=== PATIENT | female | born 1945 | race Caucasian/White ===

== ENCOUNTER 2020-03-02 19:05 | Inpatient (IN) | payer MEDICARE, OTHER ==
--- NOTE | 2020-03-02 20:19 | PDOC.HHP ---
Hospitalist HPI - History of Present Illness Altered mental status History of Present Illness: 75-year-old woman with a history of hypertension and an endocrine disease brought to the emergency department due to progressive altered mental status over 3 days. According to son patient was more confused today and therefore sent her to [place] emergency department. Patient found to be febrile with a temperature of 101, UA suggesting the presence of UTI. Patient meets criteria for sepsis. Chest x-ray done in the ED shows report of possible left lower lobe infiltrate versus atelectasis. Patient was given a shot of IV Zithromax vancomycin and cefepime and given IV normal saline bolus. She was subsequently transferred here for admission. Patient was oriented to person and place when I saw him in the ED. She denied any diarrhea, or any nausea or vomiting. She is admitted for further management. Hospitalist ROS - Review of Systems ROS unobtainable: due to mental status - Medication Medications: Medication Instructions Recorded Confirmed Type Unobtainable 03/03/20 03/03/20 History Hospitalist History - Past Medical History Other Medical History: Endocrine disease. Suspect thyroid disorder. Hypertension. - Past Surgical History Other Surgical History: Skin cancer removal from scalp, hysterectomy. - Family History Other Family History: Unable to obtain due to altered mental status. - Social History Smoking Status: Never smoker Alcohol: reports: None Drugs: reports: none - Exam General Appearance: NAD General - other findings: Confused. Eye: PERRL, anicteric sclera ENT: normocephalic atraumatic, no oropharyngeal lesions, moist mucosa Neck: supple, symmetric, no JVD, no thyromegaly Heart: RRR (Tachycardic.), no murmur, no gallops Respiratory: CTAB, no wheezes, no rales, no ronchi Gastrointestinal: soft, non-tender, non-distended, normal bowel sounds, no hepatomegaly, no splenomegaly Extremities: no cyanosis, no edema Skin: normal turgor, no rashes Neurological: cranial nerve grossly intact, no weakness, no focal deficits Musculoskeletal: normal tone, normal strength Psychiatric: oriented to person, oriented to place Psychiatric - other findings: Confused. Hospitalist Results - Labs Result Diagrams: 03/03/20 06:17 03/03/20 06:17 Lab results: Hemoglobin is 11.9 WBC 5.2 platelet count 237. Sodium 143, potassium 3.4, BUN 31, creatinine 0.87, troponin 0 0.12, TSH 0.0722. - Radiology Interpretation Chest x-ray Status: report reviewed by me (Right lower lobe atelectasis and or infiltrate.) Hospitalist H&P A/P - Problem (1) Sepsis Code(s): A41.9 - SEPSIS, UNSPECIFIED ORGANISM Status: Acute (2) UTI (urinary tract infection) Status: Acute (3) Pneumonia Code(s): J18.9 - PNEUMONIA, UNSPECIFIED ORGANISM Status: Acute (4) Metabolic encephalopathy Code(s): G93.41 - METABOLIC ENCEPHALOPATHY Status: Acute (5) Hyperthyroidism Code(s): E05.90 - THYROTOXICOSIS, UNSP WITHOUT THYROTOXIC CRISIS OR STORM Status: Acute - Plan Plan: Admitted to the medical floor with telemetry. Continue sepsis protocol. Check lactic acid. IV hydration with normal saline Broad-spectrum antibiotics-IV Rocephin and vancomycin Obtain blood cultures and urine culture. Hold thyroid replacement therapy given the low TSH. Diet as tolerated. I am unable to discuss advanced care planning due to her altered mental status and no family member by her bedside.
[2020-03-02 20:24] LABS: SARS-CoV-2 NAA Rapid Test DETECTED (NotDetected)
[2020-03-02] MEDS ORDERED: cefTRIAXone\\ROCEPHIN 2 GM in Sodium Chloride 0.9% 100 ML IVPB SCH (22:00)
[2020-03-02] MEDS: Famotidine/PF 20 mg/2ml Vial SLOW IVP SCH (23:00)
[2020-03-02] MEDS: Sodium Chloride 0.9% 1,000 ML IV SCH (23:00)
[2020-03-03] MEDS: Sodium Chloride 0.9% 1,000 ML IV SCH (04:43)
[2020-03-03] MEDS: Acetaminophen 325 MG TAB PO PRN ×2 (05:33→21:58)
[2020-03-03 06:31] LABS: #Lymphocytes 0.7 thou/uL (1.20-3.40); #Monocytes 0.4 thou/uL (0.11-0.59); #Neutrophils 4.7 thou/uL (1.40-6.50); %Basophils 0.2 % (0.0-1.0); %Eosinophils 0.2 % (0.0-10.0); %Lymphocytes 11.5 % (21.0-51.0); %Monocytes 6.4 % (0.0-10.0); %Neutrophils 81.8 % (42.0-75.0); Hemoglobin 11.1 g/dL (12.0-16.0); Mean Corpuscular Hemoglobin 31.2 pg (27.0-31.0); Mean Corpuscular Volume 91.8 fL (78.0-98.0); Mean Platelet Volume 8.4 fL (7.4-10.4); Platelet Count 211 thou/uL (130-400); RBC Distribution Width 11.3 % (11.5-14.5); Red Blood Cell (RBC) Count 3.56 mill/uL (4.20-5.40); White Blood Cell (WBC) Count 5.8 thou/uL (4.8-10.8)
[2020-03-03 06:59] LABS: Anion Gap 13 mmol/L (10-20); BUN (Urea Nitrogen) 20 mg/dL (9.8-20.1); Calc. Creatinine Clearance 51 mL/min (70-130); Calcium 7.8 mg/dL (7.8-10.44); Carbon Dioxide 23 mmol/L (23-31); Chloride 111 mmol/L (98-107); Estimated GFR-MDRD 80; Glucose 120 mg/dL (83-110); Potassium 3.3 mmol/L (3.5-5.1); Sodium 144 mmol/L (136-145)
[2020-03-03] MEDS: Enoxaparin Sodium 40 MG/0.4 ML SYRINGE SC SCH (08:11)
[2020-03-03] MEDS: Famotidine/PF 20 mg/2ml Vial SLOW IVP SCH ×2 (08:11→21:58)
[2020-03-03] MEDS ORDERED: Potassium Chloride 20 MEQ TAB PO SCH (08:15)
[2020-03-03] MEDS: Ascorbic Acid 500 mg Chewable Tablet PO SCH (09:38)
[2020-03-03] MEDS: Dexamethasone 4 mg/ml Vial SLOW IVP SCH (09:39)
[2020-03-03 09:50] LABS: CRP (Inflammatory) 10.57 mg/dL (= or < 0.5); Magnesium 1.8 mg/dL (1.6-2.6)
[2020-03-03 10:11] LABS: Phosphorus 1.6 mg/dL (2.3-4.7)
[2020-03-03] MEDS ORDERED: Magnesium 2 GM/50 ML 2 GM in Premix Bag 1 BAG IVPB SCH (10:15)
[2020-03-03] MEDS ORDERED: Potassium Phosphate 15 MMOL in Sodium Chloride 0.9% 250 ML 250 ML IVPB SCH (10:15)
[2020-03-03 10:16] LABS: Ferritin 599.81 ng/mL (10-291); Thyroid Stimulating Hormone 0.1617 uIU/mL (0.35-4.94)
[2020-03-03] MEDS ORDERED: Vancomycin HCl 750 MG in Sodium Chloride 0.9% 250 ML 250 ML IVPB SCH ×2 (14:00→17:00)
--- NOTE | 2020-03-03 17:56 | PDOC.HOSPP ---
- Subjective Encounter Date: 03/03/20 Encounter Time: 12:30 Subjective: Patient seen and examined for respiratory failure due to COVID-19 pneumonia. Shortness of breath improving. Intermittent confusion per RN. Some cough with minimal production. - Objective Vital Signs & Weight: Vital Signs (12 hours) Temp Pulse Resp BP Pulse Ox 03/03/20 16:40 97.1 F L 83 18 113/72 96 03/03/20 15:00 96 03/03/20 11:57 97.8 F 86 20 121/73 95 03/03/20 08:27 97.8 F 80 28 H 120/75 94 L Weight Weight 106 lb 3.2 oz I&O: 03/02/20 03/03/20 03/04/20 06:59 06:59 06:59 Intake Total 1455 Balance 1455 Result Diagrams: 03/03/20 06:17 03/03/20 06:17 Additional Labs: Abnormal Lab Results - Last 48 hrs 03/02/20 19:28: SARS-CoV-2 Rap RNA(RT-PCR) DETECTED A* 03/03/20 06:17: Potassium 3.3 L, Chloride 111 H 03/03/20 06:17: RBC 3.56 L, Hgb 11.1 L, Hct 32.6 L, MCH 31.2 H, RDW 11.3 L, Neutrophils % 81.8 H, Lymphocytes % 11.5 L, Lymphocytes # 0.7 L 03/03/20 08:44: Lactate Dehydrogenase 346 H 03/03/20 08:44: Phosphorus 1.6 L, C-Reactive Protein 10.57 H 03/03/20 08:44: D-Dimer 1.24 H 03/03/20 08:44: Ferritin 599.81 H, TSH 3rd Generation 0.1617 L 03/03/20 17:36: D-Dimer 1.28 H Microbiology - Entire Visit 03/02/20 20:31 Venous blood - Left Arm Blood Culture - Preliminary Specimen has been received and culture in progress. No Growth to date. 03/02/20 20:30 Venous blood - Right Arm Blood Culture - Preliminary Specimen has been received and culture in progress. No Growth to date. Radiology Reviewed by me: Yes (Chest [id number] pneumonia) Hospitalist ROS - Review of Systems Gastrointestinal: denies: nausea, vomiting, abdominal pain, diarrhea, constipation, melena, hematochezia, other Genitourinary: denies: dysuria, frequency, incontinence, hematuria, retention, other - Medication Medications: Active Medications Generic Name Dose Route Start Last Admin Trade Name Blaine PRN Reason Stop Dose Admin Acetaminophen 650 mg 03/02/20 20:10 03/03/20 05:33 Acetaminophen 325 Mg Tab PO 650 mg Q4H PRN Administration Headache/Fever/Mild Pain (1-3) Ascorbic Acid 1,000 mg 03/03/20 09:00 03/03/20 09:38 Ascorbic Acid 500 Mg Chewable Tablet PO 1,000 mg DAILY CONSTANCE Administration Dexamethasone 6 mg 03/03/20 09:00 03/03/20 09:39 Dexamethasone 4 Mg/Ml Vial SLOW IVP 6 mg DAILY CONSTANCE Administration Enoxaparin Sodium 40 mg 03/03/20 09:00 03/03/20 08:11 Enoxaparin Sodium 40 Mg/0.4 Ml Syringe SC 40 mg 0900 CONSTANCE Administration Famotidine 20 mg 03/02/20 21:00 03/03/20 08:11 Famotidine/Pf 20 Mg/2ml Vial SLOW IVP 20 mg Q12HR CONSTANCE Administration - Exam General Appearance: ill appearing Neck: supple, no JVD Heart: RRR, no gallops, no rubs, normal peripheral pulses Respiratory: no wheezes, normal chest expansion, rales, rhonchi, tachypneic Gastrointestinal: soft, non-tender, non-distended, no guarding, no rigidity Extremities: no cyanosis, no clubbing, no edema Neurological: no new deficit Musculoskeletal: generalized weakness Hosp A/P - Plan Toxic metabolic encephalopathy Acute hypoxic respiratory failure with sepsis due to COVID-19 pneumonia Hypokalemia/hypophosphatemia/hypomagnesemia Hypertension Elevated inflammatory markers Chronic anemia suspected due to nutritional deficiency Plan: Patient evaluated by infectious disease. Vancomycin and ceftriaxone will be discontinued. Started on Remdesivir. Dexamethasone 6 mg IV daily. Patient will also receive convalescent plasma. Will monitor inflammatory markers on the daily basis. Albuterol inhalers scheduled and as needed. Follow-up on urine cultures. Close monitoring. Physical therapy evaluation. I attempted to call family with no response.
[2020-03-03] MEDS ORDERED: REMDESIVIR (EUA) 200 MG in Sodium Chloride 0.9% 250 ML 210 ML IV SCH (18:00)
[2020-03-03 18:05] LABS: ALT (SGPT) 29 U/L (8-55); AST (SGOT) 33 U/L (5-34); Albumin 3.2 g/dL (3.4-4.8); Alkaline Phosphatase 60 U/L (40-110); Anion Gap 12 mmol/L (10-20); BUN (Urea Nitrogen) 19 mg/dL (9.8-20.1); Bilirubin, Direct 0.1 mg/dL (0.1-0.3); Bilirubin, Total 0.2 mg/dL (0.2-1.2); CRP (Inflammatory) 14.85 mg/dL (= or < 0.5); Calc. Creatinine Clearance 46 mL/min (70-130); Calcium 8.1 mg/dL (7.8-10.44); Carbon Dioxide 24 mmol/L (23-31); Chloride 109 mmol/L (98-107); Estimated GFR-MDRD 71; Glucose 185 mg/dL (83-110); Protein, Total 6.4 g/dL (6.0-8.3); Sodium 141 mmol/L (136-145)
[2020-03-03] MEDS ORDERED: FLU VACC QS2020-21(65YR UP)/PF 240 MCG/0.7 ML SYRINGE IM ONE (21:00)
[2020-03-03] MEDS: Zinc Sulfate 220 MG CAP PO SCH (21:58)
--- NOTE | 2020-03-03 23:53 | CON ---
DATE OF CONSULTATION: 03/03/2020 REASON FOR CONSULTATION: COVID infection. HISTORY OF PRESENT ILLNESS: A 75-year-old with history of altered mental state, hypertension, who was found by family. The patient usually lives independently and she could not care for herself, so she was brought to [facility]. She was given there antimicrobial therapy and transferred. On arrival, BP 120/70, pulse 81 respirations 22, temperature 98.9, O2 saturation 95. She was described as oriented to person, place, and time and the exam was fairly unremarkable. Chest x-ray demonstrated right lower lobe atelectasis or infiltrate, so she was given broad-spectrum antimicrobial therapy, enoxaparin, Decadron after COVID test returned positive. Right now, she was standing in the room when I arrived. She seemed to be a little bit confused, although she knows her name, but she had to be coached to give us the right location and could not tell me the date. She denies any headaches. No shortness of breath or cough. No abdominal pain. She is voiding in the toilet. She has a peripheral IV access and skin is normal. She is having intermittent diarrhea. PAST MEDICAL HISTORY: Includes hypertension, must have some cognitive dysfunction, hypothyroidism. PAST SURGICAL HISTORY: Skin cancer removal. SOCIAL HISTORY: Never smoker. Had been living by herself. ALLERGIES: NONE. MEDICATION LIST: At the moment, 1. Ceftriaxone. 2. Decadron. 3. Pepcid. 4. Vancomycin. 5. Zinc. FAMILY HISTORY: Noncontributory. PHYSICAL EXAMINATION: VITAL SIGNS: She had T-max 100.3, blood pressure 120/70, heart rate 86, respirations 20, O2 saturation 95 with 4 L nasal cannula. SKIN: Normal. Peripheral IV access. NECK: No lymphadenopathy. HEENT: Ocular movements conjugate. Oral cavity, normal oral mucosa. NECK: Supple. LUNGS: With no crackles or wheezing. HEART: S1, S2. Regular rate without murmurs. No S3 or S4. ABDOMEN: Soft, not distended or tender. No ascites. No bladder distention. EXTREMITIES: No joint inflammatory activity. No edema. Pulses 1+ in dorsalis pedis. Plantar responses are flexor. Moves all extremities equally. NEUROLOGIC: She knows her name, but other elements of the orientation are not perfect. She could not tell me the name of the hospital or the date. Recollection is quite limited. LABORATORY DATA: We do not have yet any followup labs, but the D-dimer was 1.24. Initial ferritin 599 and CRP was 10.57 and she is saturating now 96 at 4 L. ASSESSMENT: Hypertension and change in mental state associated with COVID infection, moderate. The duration of illness is about 4 days approximately maybe 5. DISCUSSION: The patient has viral infection with SARS-CoV-2 of recent onset with mental state changes, some hypoxemia, some early pulmonary involvement. She is eligible for remdesivir and continue Decadron. Discontinue antimicrobials. The incidence of bacterial superinfection in SARS-CoV-2 infected patients is quite low, I would say less than 3% and antibacterial agents are over utilized in SARS-CoV-2 infected patients. Continue monitoring inflammatory markers, daily labs including liver panel and BMP. Job ID: [id number]
[2020-03-04 06:18] LABS: #Lymphocytes 0.9 thou/uL (1.20-3.40); #Monocytes 0.5 thou/uL (0.11-0.59); #Neutrophils 4.9 thou/uL (1.40-6.50); %Basophils 0.1 % (0.0-1.0); %Lymphocytes 14.3 % (21.0-51.0); %Neutrophils 77.5 % (42.0-75.0); Hemoglobin 10.2 g/dL (12.0-16.0); Mean Corpuscular HGB CONC 33.9 g/dL (32.0-36.0); Mean Corpuscular Hemoglobin 31.2 pg (27.0-31.0); Mean Platelet Volume 8.7 fL (7.4-10.4); Platelet Count 231 thou/uL (130-400); RBC Distribution Width 11.3 % (11.5-14.5); Red Blood Cell (RBC) Count 3.28 mill/uL (4.20-5.40); White Blood Cell (WBC) Count 6.4 thou/uL (4.8-10.8)
[2020-03-04 06:33] LABS: ALT (SGPT) 25 U/L (8-55); AST (SGOT) 26 U/L (5-34); Albumin 2.7 g/dL (3.4-4.8); Alkaline Phosphatase 52 U/L (40-110); Anion Gap 12 mmol/L (10-20); BUN (Urea Nitrogen) 22 mg/dL (9.8-20.1); Bilirubin, Direct 0.1 mg/dL (0.1-0.3); Bilirubin, Total 0.2 mg/dL (0.2-1.2); CRP (Inflammatory) 10.83 mg/dL (= or < 0.5); Calc. Creatinine Clearance 51 mL/min (70-130); Calcium 7.7 mg/dL (7.8-10.44); Carbon Dioxide 21 mmol/L (23-31); Chloride 112 mmol/L (98-107); Estimated GFR-MDRD 80; Glucose 117 mg/dL (83-110); Magnesium 2.4 mg/dL (1.6-2.6); Potassium 3.4 mmol/L (3.5-5.1); Protein, Total 5.6 g/dL (6.0-8.3); Sodium 142 mmol/L (136-145)
[2020-03-04 06:38] LABS: Phosphorus 1.8 mg/dL (2.3-4.7)
[2020-03-04] MEDS ORDERED: Potassium Phosphate 20 MMOL in Sodium Chloride 0.9% 250 ML 250 ML IVPB SCH (07:15)
[2020-03-04] MEDS: Enoxaparin Sodium 40 MG/0.4 ML SYRINGE SC SCH (08:36)
[2020-03-04] MEDS: Multivit, Therapeutic 1 TAB PO SCH (08:37)
[2020-03-04] MEDS: Famotidine/PF 20 mg/2ml Vial SLOW IVP SCH ×3 (08:37→20:39)
[2020-03-04] MEDS: Ascorbic Acid 500 mg Chewable Tablet PO SCH (08:37)
[2020-03-04] MEDS: Folic Acid 1 MG TAB PO SCH (08:37)
[2020-03-04] MEDS: Cyanocobalamin (Vitamin B-12) 1,000 MCG TAB PO SCH (08:37)
[2020-03-04] MEDS: Dexamethasone 4 mg/ml Vial SLOW IVP SCH (08:41)
--- NOTE | 2020-03-04 13:59 | PDOC.HOSPP ---
- Subjective Encounter Date: 03/04/20 Encounter Time: 13:48 Subjective: no sob,etc - Objective Vital Signs & Weight: Vital Signs (12 hours) Temp Pulse Resp BP Pulse Ox 03/04/20 05:05 98.5 F 72 18 161/91 H 92 L 03/04/20 03:16 97.9 F 69 22 H 151/85 H 94 L 03/04/20 02:40 97.7 F 88 24 H 150/87 H 87 L Weight Admit Weight 106 lb 3.2 oz Weight 106 lb 3.2 oz I&O: 03/03/20 03/04/20 03/05/20 06:59 06:59 06:59 Intake Total 1455 1530 Balance 1455 1530 Result Diagrams: 03/04/20 05:52 03/04/20 05:52 Hospitalist ROS - Medication Medications: Active Medications Generic Name Dose Route Start Last Admin Trade Name Freq PRN Reason Stop Dose Admin Acetaminophen 650 mg 03/02/20 20:10 03/03/20 21:58 Acetaminophen 325 Mg Tab PO 650 mg Q4H PRN Administration Headache/Fever/Mild Pain (1-3) Ascorbic Acid 1,000 mg 03/03/20 09:00 03/04/20 08:37 Ascorbic Acid 500 Mg Chewable Tablet PO 1,000 mg DAILY CONSTANCE Administration Cyanocobalamin 1,000 mcg 03/04/20 09:00 03/04/20 08:37 Cyanocobalamin (Vitamin B-12) 1,000 Mcg Tab PO 1,000 mcg DAILY CONSTANCE Administration Dexamethasone 6 mg 03/03/20 09:00 03/04/20 08:41 Dexamethasone 4 Mg/Ml Vial SLOW IVP 6 mg DAILY CONSTANCE Administration Enoxaparin Sodium 40 mg 03/03/20 09:00 03/04/20 08:36 Enoxaparin Sodium 40 Mg/0.4 Ml Syringe SC 40 mg 0900 CONSTANCE Administration Famotidine 20 mg 03/02/20 21:00 03/04/20 08:37 Famotidine/Pf 20 Mg/2ml Vial SLOW IVP 20 mg Q12HR CONSTANCE Administration Folic Acid 1 mg 03/04/20 09:00 03/04/20 08:37 Folic Acid 1 Mg Tab PO 1 mg DAILY CONSTANCE Administration Potassium Phosphate 20 mmol/ 256.6667 mls @ 64.167 mls/hr 03/04/20 07:15 03/04/20 08:37 Sodium Chloride IVPB 03/04/20 14:00 256.6667 mls NOW CONSTANCE Administration Multivitamins 1 tab 03/04/20 09:00 03/04/20 08:37 Multivit, Therapeutic 1 Tab PO 1 tab DAILY CONSTANCE Administration Zinc Sulfate 220 mg 03/03/20 21:00 03/03/20 21:58 Zinc Sulfate 220 Mg Cap PO 220 mg HS CONSTANCE Administration - Exam General Appearance: awake alert Neck: no JVD Heart: RRR, no murmur Respiratory - other findings: mild rales, coarse BS Gastrointestinal: soft, non-tender, normal bowel sounds Extremities: no edema Hosp A/P (1) COVID-19 Code(s): U07.1 - COVID-19 Status: Acute (2) Acute respiratory failure with hypoxemia Code(s): J96.01 - ACUTE RESPIRATORY FAILURE WITH HYPOXIA Status: Acute (3) HTN (hypertension) Code(s): I10 - ESSENTIAL (PRIMARY) HYPERTENSION Status: Acute Qualifiers: Hypertension type: essential hypertension Qualified Code(s): I10 - Essential (primary) hypertension (4) Hypothyroidism Code(s): E03.9 - HYPOTHYROIDISM, UNSPECIFIED Status: Chronic Qualifiers: Hypothyroidism type: unspecified Qualified Code(s): E03.9 - Hypothyroidism, unspecified (5) Metabolic encephalopathy Code(s): G93.41 - METABOLIC ENCEPHALOPATHY Status: Acute - Plan cont high flow O2 cont iv decadron cont remdesvir
--- NOTE | 2020-03-04 15:14 | PRG ---
DATE OF SERVICE: 03/04/2020 SUBJECTIVE: The patient is awake with high-flow nasal cannula O2. Still a bit confused. She could not tell me where she was. Denies any pain. She is voiding in the toilet. OBJECTIVE: VITAL SIGNS: Temperature has been normal. She is on high-flow nasal cannula O2 at 50, saturating 95% at the moment of my exam. LUNGS: Symmetric. Clear breath sounds. HEART: S1 and S2. Regular rate. ABDOMEN: Soft, not distended. No bladder distention. EXTREMITIES: Moves all extremities equally. No edema. LABORATORY DATA: White cell count is 6.4, hemoglobin 10.2, platelets 231, 77% neutrophils. D-dimer 1.04. Ferritin is up to 601, not much changed actually. CRP is down to 10.83. The patient is on Decadron and remdesivir. Liver functions are normal. ASSESSMENT AND DISCUSSION: Hypertension, mental state change, COVID infection of approximately of 5 or 6 days duration, so she is still going into the worse week of where you see the most inflammatory changes, so still in quite fragile state right now this lady. We will have to continue to monitor closely. Job ID: [id number]
[2020-03-04] MEDS: REMDESIVIR (EUA) 100 MG in Sodium Chloride 0.9% 250 ML 230 ML IV SCH (17:58)
[2020-03-04] MEDS: Zinc Sulfate 220 MG CAP PO SCH (20:39)
[2020-03-04] MEDS ORDERED: Electrolyte Replacement Protoc 1 EACH EACH FS SCH (23:45)
[2020-03-04] MEDS: Acetaminophen 325 MG TAB PO PRN (23:50)
[2020-03-05 00:38] LABS: CO2 Tension 25.2 mmHg (35.0-45.0); pH, Arterial 7.52 (7.35-7.45)
[2020-03-05 00:39] LABS: Actual Bicarbonate (HCO3a) 19.9 mEq/L (22-28); Base Excess (BEa) -1.6 mEq/L (-2.0 to +3.0); Carboxyhemoglobin (COHb) 0.3 gm% (0.0-3.0); Hemoglobin (Hb) 12.2 g/dL (12.0-16.0); O2 Tension (PaO2), arterial 49.1 mmHg (> 70.0)
[2020-03-05 00:40] LABS: Calcium, Ionized (arterial) 1.07 mmol/L (1.12-1.30); Puncture Site LRA
[2020-03-05] MEDS ORDERED: Lorazepam 2 MG/ML VIAL SLOW IVP SCH (05:15)
[2020-03-05] MEDS ORDERED: Lorazepam 2 MG/ML VIAL ONE (05:24)
[2020-03-05] MEDS ORDERED: Sodium Chloride 0.9% 1,000 ML IV SCH (05:30)
--- NOTE | 2020-03-05 06:42 | PDOC.EVN ---
Event Note - Event Note Event Note: Nursing called pt is anxious and wanted some ativan. will order some ativan. Called nurse again for abnormal blood gas that was done at midnight and nurse stated pt is tachypenic. will order blood gas for pt she may need intubation.
[2020-03-05 06:48] LABS: Actual Bicarbonate (HCO3a) 22.3 mEq/L (22-28); Base Excess (BEa) -0.5 mEq/L (-2.0 to +3.0); CO2 Tension 30.7 mmHg (35.0-45.0); Calcium, Ionized (arterial) 1.09 mmol/L (1.12-1.30); Carboxyhemoglobin (COHb) 0.3 gm% (0.0-3.0); Hemoglobin (Hb) 11.6 g/dL (12.0-16.0); Potassium - ABG Lab 3.92 mmol/L (3.70-5.30); pH, Arterial 7.48 (7.35-7.45)
[2020-03-05 06:51] LABS: ALV-art Gradient 332.225 mmHg (0-20); O2 Tension (PaO2), arterial 57.2 mmHg (> 70.0); Puncture Site RB
[2020-03-05] MEDS ORDERED: Propofol 1,000 MG/100 ML VIAL IV ONE (06:58)
[2020-03-05] MEDS: Cyanocobalamin (Vitamin B-12) 1,000 MCG TAB PO SCH (07:12)
[2020-03-05 07:15] LABS: ALT (SGPT) 23 U/L (8-55); AST (SGOT) 26 U/L (5-34); Albumin 2.7 g/dL (3.4-4.8); Alkaline Phosphatase 58 U/L (40-110); Anion Gap 13 mmol/L (10-20); BUN (Urea Nitrogen) 29 mg/dL (9.8-20.1); Bilirubin, Direct 0.2 mg/dL (0.1-0.3); Bilirubin, Total 0.3 mg/dL (0.2-1.2); Calc. Creatinine Clearance 54 mL/min (70-130); Calcium 7.8 mg/dL (7.8-10.44); Carbon Dioxide 21 mmol/L (23-31); Chloride 113 mmol/L (98-107); Estimated GFR-MDRD 81; Glucose 112 mg/dL (83-110); Magnesium 2.4 mg/dL (1.6-2.6); Protein, Total 5.8 g/dL (6.0-8.3); Sodium 143 mmol/L (136-145)
--- NOTE | 2020-03-05 07:18 | PDOC.HOSPP ---
- Subjective Encounter Date: 03/05/20 Encounter Time: 07:16 Subjective: post intubation for progressive hypoxemia - Objective Vital Signs & Weight: Vital Signs (12 hours) Temp Pulse Resp BP Pulse Ox 03/05/20 06:34 71 24 H 95 03/05/20 05:30 93 L 03/05/20 03:51 64 48 H 93 L 03/05/20 03:49 97.2 F L 59 L 36 H 132/77 95 03/05/20 00:10 99.2 F 62 48 H 134/80 96 03/04/20 19:44 98.8 F 70 18 132/76 92 L Weight Admit Weight 106 lb 3.2 oz Weight 111 lb 1.808 oz Most Recent Monitor Data Heart Rate from ECG 80 NIBP 142/80 NIBP BP-Mean 100 Respiration from ECG 35 SpO2 99 I&O: 03/04/20 03/05/20 03/06/20 06:59 06:59 06:59 Intake Total 1530 830 Output Total 200 Balance 1530 630 Result Diagrams: 03/04/20 05:52 03/05/20 06:14 Hospitalist ROS - Medication Medications: Active Medications Generic Name Dose Route Start Last Admin Trade Name Freq PRN Reason Stop Dose Admin Acetaminophen 650 mg 03/02/20 20:10 03/04/20 23:50 Acetaminophen 325 Mg Tab PO 650 mg Q4H PRN Administration Headache/Fever/Mild Pain (1-3) Ascorbic Acid 1,000 mg 03/03/20 09:00 03/04/20 08:37 Ascorbic Acid 500 Mg Chewable Tablet PO 1,000 mg DAILY CONSTANCE Administration Cyanocobalamin 1,000 mcg 03/04/20 09:00 03/04/20 08:37 Cyanocobalamin (Vitamin B-12) 1,000 Mcg Tab PO 1,000 mcg DAILY CONSTANCE Administration Dexamethasone 6 mg 03/03/20 09:00 03/04/20 08:41 Dexamethasone 4 Mg/Ml Vial SLOW IVP 6 mg DAILY CONSTANCE Administration Enoxaparin Sodium 40 mg 03/03/20 09:00 03/04/20 08:36 Enoxaparin Sodium 40 Mg/0.4 Ml Syringe SC 40 mg 0900 CONSTANCE Administration Famotidine 20 mg 03/02/20 21:00 03/04/20 20:39 Famotidine/Pf 20 Mg/2ml Vial SLOW IVP 20 mg Q12HR CONSTANCE Administration Folic Acid 1 mg 03/04/20 09:00 03/04/20 08:37 Folic Acid 1 Mg Tab PO 1 mg DAILY CONSTANCE Administration Remdesivir 100 mg/ Sodium 250 mls @ 250 mls/hr 03/04/20 18:00 03/04/20 17:58 Chloride IV 03/07/20 18:59 250 mls 1800 CONSTANCE Administration Multivitamins 1 tab 03/04/20 09:00 03/04/20 08:37 Multivit, Therapeutic 1 Tab PO 1 tab DAILY CONSTANCE Administration Zinc Sulfate 220 mg 03/03/20 21:00 03/04/20 20:39 Zinc Sulfate 220 Mg Cap PO 220 mg HS CONSTANCE Administration - Exam Neck: no JVD Heart: RRR, no murmur Respiratory - other findings: coarse BS, diffuse rales Gastrointestinal: soft, non-tender, normal bowel sounds Extremities: no edema Hosp A/P (1) COVID-19 Code(s): U07.1 - COVID-19 Status: Acute (2) Acute respiratory failure with hypoxemia Code(s): J96.01 - ACUTE RESPIRATORY FAILURE WITH HYPOXIA Status: Acute (3) HTN (hypertension) Code(s): I10 - ESSENTIAL (PRIMARY) HYPERTENSION Status: Acute Qualifiers: Hypertension type: essential hypertension Qualified Code(s): I10 - Essential (primary) hypertension (4) Hypothyroidism Code(s): E03.9 - HYPOTHYROIDISM, UNSPECIFIED Status: Chronic Qualifiers: Hypothyroidism type: unspecified Qualified Code(s): E03.9 - Hypothyroidism, unspecified (5) Metabolic encephalopathy Code(s): G93.41 - METABOLIC ENCEPHALOPATHY Status: Acute - Plan intubated, assurance manager insurance consult O2 supplementation cont iv decadron cont remdesvir prognosis guarded
[2020-03-05] MEDS ORDERED: Ventilator Sedation Protocol 1 EACH FS ONE (07:25)
[2020-03-05] MEDS ORDERED: Propofol BOLUS 1,000 MG/100 ML VIAL IV PRN (07:30)
[2020-03-05] MEDS ORDERED: Morphine 2 MG/ML VIAL SLOW IVP PRN (07:30)
[2020-03-05] MEDS ORDERED: Fentanyl BOLUS 250 ML IVPB PRN (07:30)
[2020-03-05 07:37] LABS: Phosphorus 2.5 mg/dL (2.3-4.7)
--- NOTE | 2020-03-05 07:44 | RAD ---
Portable frontal chest radiograph: 03/05/2020 COMPARISON: 03/02/2020 HISTORY: Covid positive patient with tachypnea FINDINGS: There has been marked interval worsening of bibasilar and perihilar opacity. This exam demo nstrates extensive new areas of interstitial and alveolar opacity in the perihilar regions as well as marked interval worsening of airspace disease within the left base. Worsening patchy opacity noted in the left base. Dense opacity in the right base obscures the right hemidiaphragm and right heart border with air bronchogram formation and blunting of the right costophrenic angle. No pneumothorax. IMPRESSION: Marked interval worsening of nonspecific interstitial and alveolar opacity. Findings are consistent with Covid pneumonia. Aspiration and/or pulmonary edema edema is a possibility as well. Short-term follow-up imaging of the chest following treatment advised.
[2020-03-05] MEDS: Lorazepam 2 MG/ML VIAL SLOW IVP PRN (07:45)
--- NOTE | 2020-03-05 08:02 | RAD ---
Portable frontal chest radiograph: 03/05/2020 COMPARISON: 03/05/2020 HISTORY: Intubated patient FINDINGS: This study is performed at 7:38 AM and compared to the prior study performed at 12:15 AM. There has been interval placement of an endotracheal tube and nasogastric tube. There is extensive in terstitial and alveolar opacity with a perihilar/bibasilar predominance, right greater than left, not significantly changed. No pneumothorax is evident. IMPRESSION: Interval placement of endotracheal tube and nasogastric tube in proper position. Extensiv e unchanged interstitial and alveolar opacity.
[2020-03-05 08:04] LABS: #Lymphocytes 0.8 thou/uL (1.20-3.40); #Monocytes 0.7 thou/uL (0.11-0.59); #Neutrophils 7.3 thou/uL (1.40-6.50); %Basophils 0.1 % (0.0-1.0); %Eosinophils 0.1 % (0.0-10.0); %Lymphocytes 8.9 % (21.0-51.0); %Monocytes 7.8 % (0.0-10.0); %Neutrophils 83.2 % (42.0-75.0); Hemoglobin 11.4 g/dL (12.0-16.0); Mean Corpuscular HGB CONC 33.1 g/dL (32.0-36.0); Mean Corpuscular Hemoglobin 30.6 pg (27.0-31.0); Mean Corpuscular Volume 92.4 fL (78.0-98.0); Mean Platelet Volume 8.9 fL (7.4-10.4); Platelet Count 301 thou/uL (130-400); RBC Distribution Width 11.3 % (11.5-14.5); Red Blood Cell (RBC) Count 3.73 mill/uL (4.20-5.40); White Blood Cell (WBC) Count 8.8 thou/uL (4.8-10.8)
[2020-03-05 08:23] LABS: Actual Bicarbonate (HCO3a) 21.7 mEq/L (22-28); Base Excess (BEa) -1.3 mEq/L (-2.0 to +3.0); CO2 Tension 30.6 mmHg (35.0-45.0); Calcium, Ionized (arterial) 1.07 mmol/L (1.12-1.30); Carboxyhemoglobin (COHb) 0.3 gm% (0.0-3.0); Hemoglobin (Hb) 11.2 g/dL (12.0-16.0); Potassium - ABG Lab 3.81 mmol/L (3.70-5.30); pH, Arterial 7.47 (7.35-7.45)
[2020-03-05 08:25] LABS: ALT (SGPT) 21 U/L (8-55); AST (SGOT) 27 U/L (5-34); Alkaline Phosphatase 62 U/L (40-110); Anion Gap 14 mmol/L (10-20); BUN (Urea Nitrogen) 30 mg/dL (9.8-20.1); Bilirubin, Direct 0.2 mg/dL (0.1-0.3); Bilirubin, Total 0.3 mg/dL (0.2-1.2); Calc. Creatinine Clearance 52 mL/min (70-130); Calcium 7.6 mg/dL (7.8-10.44); Carbon Dioxide 23 mmol/L (23-31); Chloride 113 mmol/L (98-107); Estimated GFR-MDRD 78; Glucose 111 mg/dL (83-110); Protein, Total 5.9 g/dL (6.0-8.3); Sodium 146 mmol/L (136-145)
[2020-03-05 08:26] LABS: O2 Tension (PaO2), arterial 55.5 mmHg (> 70.0)
[2020-03-05 08:28] LABS: Puncture Site RR
[2020-03-05] MEDS: Dexamethasone 4 mg/ml Vial SLOW IVP SCH (08:30)
[2020-03-05] MEDS: Enoxaparin Sodium 40 MG/0.4 ML SYRINGE SC SCH (08:31)
[2020-03-05] MEDS: Famotidine/PF 20 mg/2ml Vial SLOW IVP SCH ×2 (08:31→20:29)
[2020-03-05] MEDS: Folic Acid 1 MG TAB PO SCH (08:32)
[2020-03-05] MEDS: Multivit, Therapeutic 1 TAB PO SCH (08:32)
[2020-03-05] MEDS: fentaNYL Citrate/PF 2,000 MCG in Sodium Chloride 0.9% 60 ML IV SCH (08:33)
[2020-03-05] MEDS: Ascorbic Acid 500 mg Chewable Tablet PO SCH (08:36)
[2020-03-05] MEDS: Sodium Chloride 0.45% 1,000 ML IV SCH (12:41)
--- NOTE | 2020-03-05 15:01 | PDOC.EVN ---
Event Note - Event Note Event Note: cxr-adverse, bilat infiltrates. spoke with daughter. she is aware of poor prognosis
[2020-03-05] MEDS: Propofol 1,000 MG/100 ML VIAL IV PRN (16:20)
[2020-03-05] MEDS: REMDESIVIR (EUA) 100 MG in Sodium Chloride 0.9% 250 ML 230 ML IV SCH (18:09)
[2020-03-05] MEDS: Zinc Sulfate 220 MG CAP PO SCH (20:29)
--- NOTE | 2020-03-06 01:35 | CON ---
DATE OF CONSULTATION: 03/05/2020 HISTORY OF PRESENT ILLNESS: Ms. Posada is 75-year-old female who was admitted with COVID pneumonia. Her is intubated in the ICU with COVID pneumonia as well. She required intubation earlier this morning. PAST MEDICAL HISTORY: Remarkable for 1. Hypertension. 2. Hypothyroidism. 3. History of skin cancer. SOCIAL HISTORY: She is a nonsmoker and nondrinker. ALLERGIES: REPORTS NO DRUG ALLERGIES ACCORDING TO THE ADMISSION RECORDS. FAMILY HISTORY: Negative for lung disease in early age. REVIEW OF SYSTEMS: Not obtainable. PHYSICAL EXAMINATION: GENERAL: She is intubated. VITAL SIGNS: Blood pressure 127/80, heart rate is 51, respiratory rate is 20, oximetry is 100%. She is afebrile. HEAD AND NECK EXAM: Unremarkable. LUNGS: Remarkable for coarse equal breath sounds. HEART: Regular rhythm. ABDOMEN: Soft. EXTREMITIES: Without edema. NEURO: Not assessable. LABORATORY DATA: Chest radiograph shows bilateral alveolar infiltrates. White count 8.8, hemoglobin 11.4, platelets 301. Electrolytes: Sodium 146, potassium 4, chloride 113, bicarb 23, BUN 30, creatinine 0.73. PH 7.47, CO2 30, PO2 55. COVID serology on the was positive. IMPRESSION: COVID pneumonia, respiratory failure. PLAN: Continue supportive care. Critical care time 30 min. Job ID: [id number]
[2020-03-06] MEDS: Propofol 1,000 MG/100 ML VIAL IV PRN ×2 (02:09→16:03)
[2020-03-06 04:09] LABS: ALT (SGPT) 19 U/L (8-55); AST (SGOT) 22 U/L (5-34); Albumin 2.6 g/dL (3.4-4.8); Alkaline Phosphatase 58 U/L (40-110); Anion Gap 14 mmol/L (10-20); BUN (Urea Nitrogen) 31 mg/dL (9.8-20.1); Bilirubin, Direct 0.2 mg/dL (0.1-0.3); Bilirubin, Total 0.3 mg/dL (0.2-1.2); CRP (Inflammatory) 6.24 mg/dL (= or < 0.5); Calc. Creatinine Clearance 55 mL/min (70-130); Calcium 7.3 mg/dL (7.8-10.44); Carbon Dioxide 17 mmol/L (23-31); Chloride 113 mmol/L (98-107); Estimated GFR-MDRD 83; Glucose 190 mg/dL (83-110); Potassium 4.1 mmol/L (3.5-5.1); Protein, Total 5.3 g/dL (6.0-8.3); Sodium 140 mmol/L (136-145)
[2020-03-06 07:45] LABS: Actual Bicarbonate (HCO3a) 20.5 mEq/L (22-28); Base Excess (BEa) -0.6 mEq/L (-2.0 to +3.0); Calcium, Ionized (arterial) 1.08 mmol/L (1.12-1.30); Carboxyhemoglobin (COHb) 0.2 gm% (0.0-3.0); Hemoglobin (Hb) 10.9 g/dL (12.0-16.0); O2 Tension (PaO2), arterial 63.3 mmHg (> 70.0); Potassium - ABG Lab 3.75 mmol/L (3.70-5.30)
--- NOTE | 2020-03-06 07:46 | PDOC.HOSPP ---
- Subjective Encounter Date: 03/06/20 Encounter Time: 07:45 Subjective: intubated, sedated - Objective Vital Signs & Weight: Vital Signs (12 hours) Pulse Resp Pulse Ox 03/06/20 07:34 60 03/06/20 06:00 20 03/06/20 04:00 20 03/06/20 02:00 20 03/06/20 00:00 20 03/05/20 22:00 20 03/05/20 20:00 20 99 Weight Admit Weight 106 lb 3.2 oz Weight 120 lb 13.013 oz Most Recent Monitor Data Heart Rate from ECG 59 NIBP 116/76 NIBP BP-Mean 89 Respiration from ECG 20 SpO2 97 I&O: 03/05/20 03/06/20 03/07/20 06:59 06:59 06:59 Intake Total 830 2400.8 Output Total 200 758 Balance 630 1642.8 Result Diagrams: 03/05/20 07:41 03/06/20 03:21 Hospitalist ROS - Medication Medications: Active Medications Generic Name Dose Route Start Last Admin Trade Name Freq PRN Reason Stop Dose Admin Acetaminophen 650 mg 03/02/20 20:10 03/04/20 23:50 Acetaminophen 325 Mg Tab PO 650 mg Q4H PRN Administration Headache/Fever/Mild Pain (1-3) Ascorbic Acid 1,000 mg 03/03/20 09:00 03/05/20 08:36 Ascorbic Acid 500 Mg Chewable Tablet PO 1,000 mg DAILY CONSTANCE Administration Cyanocobalamin 1,000 mcg 03/04/20 09:00 03/05/20 07:12 Cyanocobalamin (Vitamin B-12) 1,000 Mcg Tab PO 1,000 mcg DAILY CONSTANCE Administration Dexamethasone 6 mg 03/03/20 09:00 03/05/20 08:30 Dexamethasone 4 Mg/Ml Vial SLOW IVP 6 mg DAILY CONSTANCE Administration Enoxaparin Sodium 40 mg 03/03/20 09:00 03/05/20 08:31 Enoxaparin Sodium 40 Mg/0.4 Ml Syringe SC 40 mg 0900 CONSTANCE Administration Famotidine 20 mg 03/02/20 21:00 03/05/20 20:29 Famotidine/Pf 20 Mg/2ml Vial SLOW IVP 20 mg Q12HR CONSTANCE Administration Folic Acid 1 mg 03/04/20 09:00 03/05/20 08:32 Folic Acid 1 Mg Tab PO 1 mg DAILY CONSTANCE Administration Remdesivir 100 mg/ Sodium 250 mls @ 250 mls/hr 03/04/20 18:00 03/05/20 18:09 Chloride IV 03/07/20 18:59 250 mls 1800 CONSTANCE Administration Fentanyl Citrate 2,000 mcg/ 100 mls @ 0 mls/hr 03/05/20 07:30 03/05/20 08:33 Sodium Chloride IV 04/04/20 07:30 100 mls INF CONSTANCE Administration Protocol Per Protocol Sodium Chloride 1,000 mls @ 50 mls/hr 03/05/20 12:45 03/05/20 12:41 1/2 Normal Saline IV 1,000 mls .Q20H CONSTANCE Administration Lorazepam 2 mg 03/05/20 07:30 03/05/20 07:45 Lorazepam 2 Mg/Ml Vial SLOW IVP 04/04/20 07:30 2 mg Q1H PRN Administration Breakthrough agitation Multivitamins 1 tab 03/04/20 09:00 03/05/20 08:32 Multivit, Therapeutic 1 Tab PO 1 tab DAILY CONSTANCE Administration Propofol 1,000 mg 03/05/20 07:30 03/06/20 02:09 Propofol 1,000 Mg/100 Ml Vial IV 04/04/20 07:30 1,000 mg INF PRN Administration TO ACHIEVE GOAL RASS Protocol Sodium Chloride 10 ml 03/03/20 00:45 03/05/20 08:32 Flush - Normal Saline 10 Ml Syringe IVF 10 ml PRN PRN Administration Saline Flush Zinc Sulfate 220 mg 03/03/20 21:00 03/05/20 20:29 Zinc Sulfate 220 Mg Cap PO 220 mg HS CONSTANCE Administration Hosp A/P (1) COVID-19 Code(s): U07.1 - COVID-19 Status: Acute (2) Acute respiratory failure with hypoxemia Code(s): J96.01 - ACUTE RESPIRATORY FAILURE WITH HYPOXIA Status: Acute (3) HTN (hypertension) Code(s): I10 - ESSENTIAL (PRIMARY) HYPERTENSION Status: Acute Qualifiers: Hypertension type: essential hypertension Qualified Code(s): I10 - Essential (primary) hypertension (4) Hypothyroidism Code(s): E03.9 - HYPOTHYROIDISM, UNSPECIFIED Status: Chronic Qualifiers: Hypothyroidism type: unspecified Qualified Code(s): E03.9 - Hypothyroidism, unspecified (5) Metabolic encephalopathy Code(s): G93.41 - METABOLIC ENCEPHALOPATHY Status: Acute - Plan intubated, O2 supplementation cont iv decadron cont remdesvir prognosis guarded discuss with courtesy bus driver
[2020-03-06 07:48] LABS: CO2 Tension 23.8 mmHg (35.0-45.0); Puncture Site LRA; pH, Arterial 7.55 (7.35-7.45)
[2020-03-06] MEDS: Dexamethasone 4 mg/ml Vial SLOW IVP SCH (08:21)
[2020-03-06] MEDS: Enoxaparin Sodium 40 MG/0.4 ML SYRINGE SC SCH (08:21)
[2020-03-06] MEDS: Cyanocobalamin (Vitamin B-12) 1,000 MCG TAB PO SCH (08:21)
[2020-03-06] MEDS: Folic Acid 1 MG TAB PO SCH (08:22)
[2020-03-06] MEDS: Multivit, Therapeutic 1 TAB PO SCH (08:22)
[2020-03-06] MEDS: Ascorbic Acid 500 mg Chewable Tablet PO SCH (08:22)
[2020-03-06] MEDS: Famotidine/PF 20 mg/2ml Vial SLOW IVP SCH ×2 (08:22→20:20)
[2020-03-06] MEDS: fentaNYL Citrate/PF 2,000 MCG in Sodium Chloride 0.9% 60 ML IV SCH (08:26)
[2020-03-06] MEDS: Sodium Chloride 0.45% 1,000 ML IV SCH (08:26)
--- NOTE | 2020-03-06 08:57 | RAD ---
PORTABLE CHEST: HISTORY: COVID pneumonia. COMPARISON: Prior day's exam. FINDINGS: Endotracheal and NG tubes are in satisfactory position. Bilateral infiltrates are similar to the pre vious exam. No significant overall change. IMPRESSION: Stable exam. POS: [facility]
--- NOTE | 2020-03-06 16:29 | PRG ---
DATE OF SERVICE: 03/06/2020 SUBJECTIVE: Adiel De Jesus remains mechanically ventilated. She is in no distress. OBJECTIVE: VITAL SIGNS: Heart rates in the 50s, blood pressure 131/80, respiratory rate 16. LUNGS: Unchanged. HEART: Unchanged. ABDOMEN: Unchanged. LABORATORY DATA: White count 8.8 yesterday. Sodium 140, potassium 4.1, chloride 113, bicarb 17, BUN 31, and creatinine 0.69. PH 7.55, CO2 of 23, pO2 of 63. Rate was 20, it is turned down to 16. IMPRESSION: COVID pneumonia, clinically stable. It is not anticipated that she will improve rapidly. Critical care time 30 min. Job ID: [id number] MTDD
[2020-03-06] MEDS ORDERED: Pancrelipase DR 12,000 1 CAP FS PRN (18:00)
[2020-03-06] MEDS ORDERED: Sodium Bicarbonate Tab 325 MG TAB PER TUBE PRN (18:00)
[2020-03-06] MEDS: REMDESIVIR (EUA) 100 MG in Sodium Chloride 0.9% 250 ML 230 ML IV SCH (18:14)
[2020-03-06] MEDS: Zinc Sulfate 220 MG CAP PO SCH (20:20)
[2020-03-06] MEDS: Lorazepam 2 MG/ML VIAL SLOW IVP PRN (20:20)
[2020-03-07] MEDS: Sodium Chloride 0.45% 1,000 ML IV SCH ×2 (05:01→23:39)
[2020-03-07] MEDS: Propofol 1,000 MG/100 ML VIAL IV PRN ×3 (06:01→22:29)
[2020-03-07 07:00] LABS: Actual Bicarbonate (HCO3a) 20.4 mEq/L (22-28); Base Excess (BEa) -2.2 mEq/L (-2.0 to +3.0); CO2 Tension 28.3 mmHg (35.0-45.0); Carboxyhemoglobin (COHb) 0.3 gm% (0.0-3.0); Hemoglobin (Hb) 11.4 g/dL (12.0-16.0); pH, Arterial 7.48 (7.35-7.45)
[2020-03-07 07:01] LABS: Puncture Site RRA
[2020-03-07 07:02] LABS: ALV-art Gradient 262.125 mmHg (0-20)
[2020-03-07 07:10] LABS: ALT (SGPT) 19 U/L (8-55); AST (SGOT) 19 U/L (5-34); Albumin 2.6 g/dL (3.4-4.8); Alkaline Phosphatase 60 U/L (40-110); Anion Gap 12 mmol/L (10-20); BUN (Urea Nitrogen) 27 mg/dL (9.8-20.1); Bilirubin, Direct 0.2 mg/dL (0.1-0.3); Bilirubin, Total 0.3 mg/dL (0.2-1.2); CRP (Inflammatory) 3.49 mg/dL (= or < 0.5); Calc. Creatinine Clearance 68 mL/min (70-130); Calcium 7.1 mg/dL (7.8-10.44); Carbon Dioxide 19 mmol/L (23-31); Chloride 111 mmol/L (98-107); Estimated GFR-MDRD Greater than 90; Glucose 154 mg/dL (83-110); Potassium 3.7 mmol/L (3.5-5.1); Protein, Total 5.3 g/dL (6.0-8.3); Sodium 138 mmol/L (136-145)
[2020-03-07] MEDS: fentaNYL Citrate/PF 2,000 MCG in Sodium Chloride 0.9% 60 ML IV SCH (08:36)
--- NOTE | 2020-03-07 08:48 | PDOC.HOSPP ---
- Subjective Encounter Date: 03/07/20 Encounter Time: 08:43 Subjective: intubated, restless without sedation - Objective Vital Signs & Weight: Vital Signs (12 hours) Pulse Resp 03/07/20 08:00 16 03/07/20 06:41 69 03/07/20 06:00 16 03/07/20 04:00 16 03/07/20 02:00 16 03/07/20 01:52 52 L 03/07/20 00:00 16 03/06/20 22:47 50 L Weight Admit Weight 106 lb 3.2 oz Weight 120 lb 2.431 oz Most Recent Monitor Data Heart Rate from ECG 64 NIBP 131/73 NIBP BP-Mean 92 Respiration from ECG 16 SpO2 98 I&O: 03/06/20 03/07/20 03/08/20 06:59 06:59 06:59 Intake Total 2400.8 2557.6 Output Total 758 1385 230 Balance 1642.8 1172.6 -230 Result Diagrams: 03/05/20 07:41 03/07/20 06:36 Hospitalist ROS - Medication Medications: Active Medications Generic Name Dose Route Start Last Admin Trade Name Freq PRN Reason Stop Dose Admin Acetaminophen 650 mg 03/02/20 20:10 03/04/20 23:50 Acetaminophen 325 Mg Tab PO 650 mg Q4H PRN Administration Headache/Fever/Mild Pain (1-3) Ascorbic Acid 1,000 mg 03/03/20 09:00 03/06/20 08:22 Ascorbic Acid 500 Mg Chewable Tablet PO 1,000 mg DAILY CONSTANCE Administration Cyanocobalamin 1,000 mcg 03/04/20 09:00 03/06/20 08:21 Cyanocobalamin (Vitamin B-12) 1,000 Mcg Tab PO 1,000 mcg DAILY CONSTANCE Administration Dexamethasone 6 mg 03/03/20 09:00 03/06/20 08:21 Dexamethasone 4 Mg/Ml Vial SLOW IVP 6 mg DAILY CONSTANCE Administration Enoxaparin Sodium 40 mg 03/03/20 09:00 03/06/20 08:21 Enoxaparin Sodium 40 Mg/0.4 Ml Syringe SC 40 mg 0900 CONSTANCE Administration Folic Acid 1 mg 03/04/20 09:00 03/06/20 08:22 Folic Acid 1 Mg Tab PO 1 mg DAILY CONSTANCE Administration Remdesivir 100 mg/ Sodium 250 mls @ 250 mls/hr 10/19/20 18:00 03/06/20 18:14 Chloride IV 03/07/20 18:59 250 mls 1800 CONSTANCE Administration Fentanyl Citrate 2,000 mcg/ 100 mls @ 0 mls/hr 03/05/20 07:30 03/07/20 08:36 Sodium Chloride IV 04/04/20 07:30 100 mls INF CONSTANCE Administration Protocol Per Protocol Sodium Chloride 1,000 mls @ 50 mls/hr 03/05/20 12:45 03/07/20 05:01 1/2 Normal Saline IV 1,000 mls .Q20H CONSTANCE Administration Lorazepam 2 mg 03/05/20 07:30 03/06/20 20:20 Lorazepam 2 Mg/Ml Vial SLOW IVP 04/04/20 07:30 2 mg Q1H PRN Administration Breakthrough agitation Multivitamins 1 tab 03/04/20 09:00 03/06/20 08:22 Multivit, Therapeutic 1 Tab PO 1 tab DAILY CONSTANCE Administration Propofol 1,000 mg 03/05/20 07:30 03/07/20 06:01 Propofol 1,000 Mg/100 Ml Vial IV 04/04/20 07:30 1,000 mg INF PRN Administration TO ACHIEVE GOAL RASS Protocol Sodium Chloride 10 ml 03/03/20 00:45 03/05/20 08:32 Flush - Normal Saline 10 Ml Syringe IVF 10 ml PRN PRN Administration Saline Flush Zinc Sulfate 220 mg 03/03/20 21:00 03/06/20 20:20 Zinc Sulfate 220 Mg Cap PO 220 mg HS CONSTANCE Administration Hosp A/P (1) COVID-19 Code(s): U07.1 - COVID-19 Status: Acute (2) Acute respiratory failure with hypoxemia Code(s): J96.01 - ACUTE RESPIRATORY FAILURE WITH HYPOXIA Status: Acute (3) HTN (hypertension) Code(s): I10 - ESSENTIAL (PRIMARY) HYPERTENSION Status: Acute Qualifiers: Hypertension type: essential hypertension Qualified Code(s): I10 - Essential (primary) hypertension (4) Hypothyroidism Code(s): E03.9 - HYPOTHYROIDISM, UNSPECIFIED Status: Chronic Qualifiers: Hypothyroidism type: unspecified Qualified Code(s): E03.9 - Hypothyroidism, unspecified (5) Metabolic encephalopathy Code(s): G93.41 - METABOLIC ENCEPHALOPATHY Status: Acute - Plan intubated, O2 supplementation cont iv decadron cont remdesvir prognosis guarded discuss with manager party
[2020-03-07] MEDS: Dexamethasone 4 mg/ml Vial SLOW IVP SCH (08:49)
[2020-03-07] MEDS: Enoxaparin Sodium 40 MG/0.4 ML SYRINGE SC SCH (08:49)
[2020-03-07] MEDS: Lorazepam 2 MG/ML VIAL SLOW IVP PRN ×2 (08:50→22:29)
[2020-03-07] MEDS: Famotidine 20 MG TAB PER TUBE SCH ×2 (08:50→19:28)
[2020-03-07] MEDS: Multivit, Therapeutic 1 TAB PO SCH (08:50)
[2020-03-07] MEDS: Folic Acid 1 MG TAB PO SCH (08:51)
[2020-03-07] MEDS: Cyanocobalamin (Vitamin B-12) 1,000 MCG TAB PO SCH (08:51)
[2020-03-07] MEDS: Ascorbic Acid 500 mg Chewable Tablet PO SCH (08:51)
--- NOTE | 2020-03-07 16:39 | PRG ---
DATE OF SERVICE: 03/07/2020 Heart rates in the 50s, oximetry is 100%, respiratory rates in the teens. Lungs, heart, and abdomen are unchanged. White count had not been repeated since two days ago. Sodium 138, potassium 3.7, chloride 111, bicarb 19, BUN 27, creatinine 0.61. She has no x-ray today. I talked with the son, Prashanth. He wants her to be a DNR. He wants to continue aggressively short of a code. Her is ventilated as well. I have much better feeling about her surviving this when I do about her . We will continue supportive care. Critical care time, 30 minutes. Job ID: [id number]
[2020-03-07] MEDS: REMDESIVIR (EUA) 100 MG in Sodium Chloride 0.9% 250 ML 230 ML IV SCH (18:36)
[2020-03-07] MEDS: Zinc Sulfate 220 MG CAP PO SCH (19:28)
[2020-03-08 04:49] LABS: ALT (SGPT) 23 U/L (8-55); AST (SGOT) 19 U/L (5-34); Albumin 2.3 g/dL (3.4-4.8); Alkaline Phosphatase 61 U/L (40-110); Anion Gap 13 mmol/L (10-20); BUN (Urea Nitrogen) 25 mg/dL (9.8-20.1); Bilirubin, Direct 0.1 mg/dL (0.1-0.3); Bilirubin, Total 0.2 mg/dL (0.2-1.2); CRP (Inflammatory) 3.85 mg/dL (= or < 0.5); Calc. Creatinine Clearance 68 mL/min (70-130); Calcium 7.1 mg/dL (7.8-10.44); Carbon Dioxide 18 mmol/L (23-31); Chloride 113 mmol/L (98-107); Estimated GFR-MDRD Greater than 90; Glucose 205 mg/dL (83-110); Protein, Total 4.9 g/dL (6.0-8.3); Sodium 140 mmol/L (136-145)
[2020-03-08] MEDS: Propofol 1,000 MG/100 ML VIAL IV PRN (08:20)
[2020-03-08] MEDS: Lorazepam 2 MG/ML VIAL SLOW IVP PRN ×2 (08:20→19:31)
[2020-03-08] MEDS: Folic Acid 1 MG TAB PO SCH (08:21)
[2020-03-08] MEDS: Dexamethasone 4 mg/ml Vial SLOW IVP SCH (08:21)
[2020-03-08] MEDS: Cyanocobalamin (Vitamin B-12) 1,000 MCG TAB PO SCH (08:21)
[2020-03-08] MEDS: Enoxaparin Sodium 40 MG/0.4 ML SYRINGE SC SCH (08:21)
[2020-03-08] MEDS: Multivit, Therapeutic 1 TAB PO SCH (08:21)
[2020-03-08] MEDS: Famotidine 20 MG TAB PER TUBE SCH ×2 (08:21→19:30)
[2020-03-08] MEDS: Ascorbic Acid 500 mg Chewable Tablet PO SCH (08:21)
--- NOTE | 2020-03-08 09:08 | RAD ---
CHEST 1 VIEW: HISTORY: Intubated patient. COMPARISON: Radiograph 2 days prior. FINDINGS: Pleural effusions are similar along with airspace consolidation in the lung bases. No pneumothorax. Endotracheal tube tip above the belen 2 cm. Enteric tube tip below the diaphragm although out of th e field of view. IMPRESSION: Similar examination of the chest. POS: HOME
[2020-03-08 09:39] LABS: Actual Bicarbonate (HCO3a) 20.8 mEq/L (22-28); CO2 Tension 29.7 mmHg (35.0-45.0); Calcium, Ionized (arterial) 1.13 mmol/L (1.12-1.30); Carboxyhemoglobin (COHb) 0.3 gm% (0.0-3.0); Hemoglobin (Hb) 12.1 g/dL (12.0-16.0); Potassium - ABG Lab 3.35 mmol/L (3.70-5.30); pH, Arterial 7.46 (7.35-7.45)
[2020-03-08 09:46] LABS: O2 Tension (PaO2), arterial 54.3 mmHg (> 70.0); Puncture Site LRA
[2020-03-08 09:47] LABS: ALV-art Gradient 265.075 mmHg (0-20)
[2020-03-08] MEDS: fentaNYL Citrate/PF 2,000 MCG in Sodium Chloride 0.9% 60 ML IV SCH (10:50)
--- NOTE | 2020-03-08 12:01 | PRG ---
DATE OF SERVICE: 03/08/2020 SUBJECTIVE: Ms. Posada is clinically unchanged. OBJECTIVE: GENERAL: She is in no distress. VITAL SIGNS: Heart rates in the 50s, blood pressure 111/65, respiratory rate is in the teens, oximetry is 95%, and temp is 99.1. LUNGS: Remarkable for equal breath sounds. HEART: Regular rhythm. ABDOMEN: Soft. EXTREMITIES: Without edema. LABORATORY DATA: Sodium 140, potassium 4, chloride 113, bicarb 18, BUN 25, creatinine 0.59, glucose 205. PH 7.46, CO2 of 29, pO2 of 54. IMPRESSION: COVID pneumonia, respiratory failure. Chest x-ray not surprisingly shows no improvement. Apparently, she has underlying dementia, so this probably will not end well. She is a do not resuscitate patient. We will continue with supportive care. Job ID: [id number]
--- NOTE | 2020-03-08 13:43 | PDOC.HOSPP ---
- Subjective Encounter Date: 03/08/20 Encounter Time: 11:30 Subjective: Patient seen and examined. No overnight events - Objective Vital Signs & Weight: Vital Signs (12 hours) Pulse Resp Pulse Ox 03/08/20 12:04 51 L 03/08/20 12:00 16 03/08/20 10:00 16 03/08/20 08:00 16 03/08/20 07:39 97 03/08/20 06:00 16 03/08/20 04:00 16 03/08/20 02:00 16 Weight Admit Weight 106 lb 3.2 oz Weight 117 lb 1.047 oz Most Recent Monitor Data Heart Rate from ECG 52 NIBP 129/77 NIBP BP-Mean 94 Respiration from ECG 0 SpO2 97 I&O: 03/07/20 03/08/20 03/09/20 06:59 06:59 06:59 Intake Total 2557.6 2610.2 Output Total 1385 1915 730 Balance 1172.6 695.2 -730 Result Diagrams: 03/05/20 07:41 03/08/20 03:19 Hospitalist ROS - Review of Systems ROS unobtainable: due to endotracheal tube - Medication Medications: Active Medications Generic Name Dose Route Start Last Admin Trade Name Freq PRN Reason Stop Dose Admin Acetaminophen 650 mg 03/02/20 20:10 03/04/20 23:50 Acetaminophen 325 Mg Tab PO 650 mg Q4H PRN Administration Headache/Fever/Mild Pain (1-3) Ascorbic Acid 1,000 mg 03/03/20 09:00 03/08/20 08:21 Ascorbic Acid 500 Mg Chewable Tablet PO 1,000 mg DAILY CONSTANCE Administration Cyanocobalamin 1,000 mcg 03/04/20 09:00 03/08/20 08:21 Cyanocobalamin (Vitamin B-12) 1,000 Mcg Tab PO 1,000 mcg DAILY CONSTANCE Administration Dexamethasone 6 mg 03/03/20 09:00 03/08/20 08:21 Dexamethasone 4 Mg/Ml Vial SLOW IVP 6 mg DAILY CONSTANCE Administration Enoxaparin Sodium 40 mg 03/03/20 09:00 03/08/20 08:21 Enoxaparin Sodium 40 Mg/0.4 Ml Syringe SC 40 mg 0900 CONSTANCE Administration Famotidine 20 mg 03/07/20 09:00 03/08/20 08:21 Famotidine 20 Mg Tab PER TUBE 20 mg Q12HR CONSTANCE Administration Folic Acid 1 mg 03/04/20 09:00 03/08/20 08:21 Folic Acid 1 Mg Tab PO 1 mg DAILY CONSTANCE Administration Fentanyl Citrate 2,000 mcg/ 100 mls @ 0 mls/hr 03/05/20 07:30 03/08/20 10:50 Sodium Chloride IV 04/04/20 07:30 100 mls INF CONSTANCE Administration Protocol Per Protocol Sodium Chloride 1,000 mls @ 50 mls/hr 03/05/20 12:45 03/07/20 23:39 1/2 Normal Saline IV 1,000 mls .Q20H CONSTANCE Administration Dexmedetomidine HCl 400 mcg/ 100 mls @ 0 mls/hr 03/08/20 09:30 03/08/20 10:51 Sodium Chloride IVPB 100 mls INF CONSTANCE Administration Protocol Per Protocol Lorazepam 2 mg 03/05/20 07:30 03/08/20 08:20 Lorazepam 2 Mg/Ml Vial SLOW IVP 04/04/20 07:30 2 mg Q1H PRN Administration Breakthrough agitation Multivitamins 1 tab 03/04/20 09:00 03/08/20 08:21 Multivit, Therapeutic 1 Tab PO 1 tab DAILY CONSTANCE Administration Propofol 1,000 mg 03/05/20 07:30 03/08/20 08:20 Propofol 1,000 Mg/100 Ml Vial IV 04/04/20 07:30 1,000 mg INF PRN Administration TO ACHIEVE GOAL RASS Protocol Sodium Chloride 10 ml 03/03/20 00:45 03/07/20 08:49 Flush - Normal Saline 10 Ml Syringe IVF 10 ml PRN PRN Administration Saline Flush Zinc Sulfate 220 mg 03/03/20 21:00 03/07/20 19:28 Zinc Sulfate 220 Mg Cap PO 220 mg HS CONSTANCE Administration - Exam General Appearance: NAD Eye: PERRL ENT: normocephalic atraumatic Neck: no JVD Heart: RRR, no murmur, no gallops Respiratory: no wheezes, no rales, no ronchi Gastrointestinal: soft, non-distended, normal bowel sounds Extremities: no edema Hosp A/P (1) Acute respiratory failure with hypoxemia Code(s): J96.01 - ACUTE RESPIRATORY FAILURE WITH HYPOXIA Status: Acute (2) COVID-19 Code(s): U07.1 - COVID-19 Status: Acute (3) HTN (hypertension) Code(s): I10 - ESSENTIAL (PRIMARY) HYPERTENSION Status: Acute Qualifiers: Hypertension type: essential hypertension Qualified Code(s): I10 - Essential (primary) hypertension (4) Hyperthyroidism Code(s): E05.90 - THYROTOXICOSIS, UNSP WITHOUT THYROTOXIC CRISIS OR STORM Status: Acute (5) Metabolic encephalopathy Code(s): G93.41 - METABOLIC ENCEPHALOPATHY Status: Acute (6) Pneumonia Code(s): J18.9 - PNEUMONIA, UNSPECIFIED ORGANISM Status: Acute (7) Sepsis Code(s): A41.9 - SEPSIS, UNSPECIFIED ORGANISM Status: Acute (8) Hypothyroidism Code(s): E03.9 - HYPOTHYROIDISM, UNSPECIFIED Status: Chronic Qualifiers: Hypothyroidism type: unspecified Qualified Code(s): E03.9 - Hypothyroidism, unspecified - Plan old records reviewed/req, respiratory therapy continue vent management as per pulmonary supportive care medication reviewed
[2020-03-08] MEDS: Sodium Chloride 0.45% 1,000 ML IV SCH (18:57)
[2020-03-08] MEDS: Zinc Sulfate 220 MG CAP PO SCH (19:31)
[2020-03-09] MEDS: fentaNYL Citrate/PF 2,000 MCG in Sodium Chloride 0.9% 60 ML IV SCH ×2 (05:29→23:46)
[2020-03-09] MEDS: Enoxaparin Sodium 40 MG/0.4 ML SYRINGE SC SCH (08:45)
[2020-03-09] MEDS: Famotidine 20 MG TAB PER TUBE SCH ×2 (08:46→20:13)
[2020-03-09] MEDS: Folic Acid 1 MG TAB PO SCH (08:46)
[2020-03-09] MEDS: Dexamethasone 4 mg/ml Vial SLOW IVP SCH (08:46)
[2020-03-09] MEDS: Cyanocobalamin (Vitamin B-12) 1,000 MCG TAB PO SCH (08:46)
[2020-03-09] MEDS: Multivit, Therapeutic 1 TAB PO SCH (08:47)
[2020-03-09] MEDS: Ascorbic Acid 500 mg Chewable Tablet PO SCH (09:32)
[2020-03-09] MEDS: Lorazepam 2 MG/ML VIAL SLOW IVP PRN ×4 (09:45→23:30)
--- NOTE | 2020-03-09 10:22 | RAD ---
XR Chest 1 View Portable History: Intubated patient Comparison: Radiograph prior day Findings: Endotracheal tube tip above the belen 2.6 cm. Enteric tube tip below diaphragm although ou t of field of view. Similar perihilar and lower lobe airspace opacities. Small effusions. No pneumothorax. Impression: Similar radiographic appearance of the chest.
--- NOTE | 2020-03-09 11:03 | PDOC.HOSPP ---
- Subjective Encounter Date: 03/09/20 Encounter Time: 10:10 Subjective: Patient is on ventilator, no significant change since yesterday - Objective Vital Signs & Weight: Vital Signs (12 hours) Pulse Resp BP 03/09/20 08:00 16 03/09/20 07:42 49 L 03/09/20 06:00 16 03/09/20 04:00 16 03/09/20 03:47 45 L 03/09/20 02:00 16 03/09/20 00:27 57 L 127/74 03/09/20 00:00 16 Weight Admit Weight 106 lb 3.2 oz Weight 115 lb 11.883 oz Most Recent Monitor Data Heart Rate from ECG 49 NIBP 136/81 NIBP BP-Mean 99 Respiration from ECG 16 SpO2 97 I&O: 03/08/20 03/09/20 03/10/20 06:59 06:59 06:59 Intake Total 2610.2 2068.2 Output Total 1915 1765 60 Balance 695.2 303.2 -60 Result Diagrams: 03/05/20 07:41 03/08/20 03:19 Radiology Reviewed by me: Yes EKG Reviewed by me: Yes Hospitalist ROS - Review of Systems ROS unobtainable: due to endotracheal tube - Medication Medications: Active Medications Generic Name Dose Route Start Last Admin Trade Name Enrriqueq PRN Reason Stop Dose Admin Acetaminophen 650 mg 03/02/20 20:10 03/04/20 23:50 Acetaminophen 325 Mg Tab PO 650 mg Q4H PRN Administration Headache/Fever/Mild Pain (1-3) Ascorbic Acid 1,000 mg 03/03/20 09:00 03/09/20 09:32 Ascorbic Acid 500 Mg Chewable Tablet PO 1,000 mg DAILY CONSTANCE Administration Cyanocobalamin 1,000 mcg 03/04/20 09:00 03/09/20 08:46 Cyanocobalamin (Vitamin B-12) 1,000 Mcg Tab PO 1,000 mcg DAILY CONSTANCE Administration Dexamethasone 6 mg 03/03/20 09:00 03/09/20 08:46 Dexamethasone 4 Mg/Ml Vial SLOW IVP 6 mg DAILY CONSTANCE Administration Enoxaparin Sodium 40 mg 03/03/20 09:00 03/09/20 08:45 Enoxaparin Sodium 40 Mg/0.4 Ml Syringe SC 40 mg 09 CONSTANCE Administration Famotidine 20 mg 03/07/20 09:00 03/09/20 08:46 Famotidine 20 Mg Tab PER TUBE 20 mg Q12HR CONSTANCE Administration Folic Acid 1 mg 03/04/20 09:00 03/09/20 08:46 Folic Acid 1 Mg Tab PO 1 mg DAILY CONSTANCE Administration Fentanyl Citrate 2,000 mcg/ 100 mls @ 0 mls/hr 03/05/20 07:30 03/09/20 05:29 Sodium Chloride IV 04/04/20 07:30 100 mls INF CONSTANCE Administration Protocol Per Protocol Sodium Chloride 1,000 mls @ 50 mls/hr 03/05/20 12:45 03/08/20 18:57 1/2 Normal Saline IV 1,000 mls .Q20H CONSTANCE Administration Dexmedetomidine HCl 400 mcg/ 100 mls @ 0 mls/hr 03/08/20 09:30 03/09/20 05:17 Sodium Chloride IVPB 100 mls INF CONSTANCE Administration Protocol Per Protocol Lorazepam 2 mg 03/05/20 07:30 03/09/20 09:45 Lorazepam 2 Mg/Ml Vial SLOW IVP 04/04/20 07:30 2 mg Q1H PRN Administration Breakthrough agitation Multivitamins 1 tab 03/04/20 09:00 03/09/20 08:47 Multivit, Therapeutic 1 Tab PO 1 tab DAILY CONSTANCE Administration Propofol 1,000 mg 03/05/20 07:30 03/08/20 08:20 Propofol 1,000 Mg/100 Ml Vial IV 04/04/20 07:30 1,000 mg INF PRN Administration TO ACHIEVE GOAL RASS Protocol Sodium Chloride 10 ml 03/03/20 00:45 03/07/20 08:49 Flush - Normal Saline 10 Ml Syringe IVF 10 ml PRN PRN Administration Saline Flush Zinc Sulfate 220 mg 03/03/20 21:00 03/08/20 19:31 Zinc Sulfate 220 Mg Cap PO 220 mg HS CONSTANCE Administration - Exam General Appearance: NAD Eye: PERRL ENT - other findings: Endotracheal tube in place Heart: RRR, no murmur, no gallops Respiratory: no wheezes, no rales, no ronchi Respiratory - other findings: Anteriorly lungs clear Gastrointestinal: soft, normal bowel sounds Hosp A/P (1) Acute respiratory failure with hypoxemia Code(s): J96.01 - ACUTE RESPIRATORY FAILURE WITH HYPOXIA Status: Acute (2) COVID-19 Code(s): U07.1 - COVID-19 Status: Acute (3) HTN (hypertension) Code(s): I10 - ESSENTIAL (PRIMARY) HYPERTENSION Status: Acute Qualifiers: Hypertension type: essential hypertension Qualified Code(s): I10 - Essential (primary) hypertension (4) Hyperthyroidism Code(s): E05.90 - THYROTOXICOSIS, UNSP WITHOUT THYROTOXIC CRISIS OR STORM Status: Acute (5) Metabolic encephalopathy Code(s): G93.41 - METABOLIC ENCEPHALOPATHY Status: Acute (6) Pneumonia Code(s): J18.9 - PNEUMONIA, UNSPECIFIED ORGANISM Status: Acute (7) Sepsis Code(s): A41.9 - SEPSIS, UNSPECIFIED ORGANISM Status: Acute (8) Hypothyroidism Code(s): E03.9 - HYPOTHYROIDISM, UNSPECIFIED Status: Chronic Qualifiers: Hypothyroidism type: unspecified Qualified Code(s): E03.9 - Hypothyroidism, unspecified - Plan old records reviewed/req, respiratory therapy, DVT proph w/lovenox, DVT proph w/SCDs Medications reviewed and continue for symptomatic and supportive care No new recommendations Ventilator as per pulmonology Prognosis guarded
--- NOTE | 2020-03-09 11:57 | PRG ---
DATE OF SERVICE: 03/09/2020 TIME SPENT: 35 minutes of critical care time. SUBJECTIVE: The patient remains intubated on mechanical ventilation. She is currently sedated on Precedex. OBJECTIVE: VITAL SIGNS: Temperature 96.8, pulse in the 40s to 50s, blood pressure 136/81, and O2 saturation 97%. 24-hour intake 2067 and output 1765. HEENT: Unremarkable. NECK: No adenopathy or JVD. LUNGS: Inspiratory crackles bilaterally. CARDIAC: S1 and S2. Regular. ABDOMEN: Soft. EXTREMITIES: No edema. DIAGNOSTIC STUDIES: Her x-ray shows bilateral infiltrates, unchanged from previous. LABORATORY DATA: Sodium 140, potassium 4, chloride 113, CO2 of 18, BUN 25, creatinine 0.6, and glucose 205. Ferritin 354. ABG was not done today. White blood cell count 8.8, hematocrit 34.5, and platelet count 301. ASSESSMENT: 1. COVID-19 pneumonia. 2. Acute hypoxic respiratory failure, requiring mechanical ventilation. 3. Probable underlying dementia. PLAN: 1. She had a near extubation this morning. I think she probably needs to be sedated a little more than what she is while we are waiting for her hypoxia to improve. Propofol could definitely be used for that. 2. Continue steroids. 3. Continue anticoagulation. 4. Continue general supportive care. Job ID: [id number]
[2020-03-09] MEDS: Sodium Chloride 0.45% 1,000 ML IV SCH (15:11)
[2020-03-09] MEDS: Zinc Sulfate 220 MG CAP PO SCH (20:13)
[2020-03-10] MEDS: Lorazepam 2 MG/ML VIAL SLOW IVP PRN ×3 (06:31→12:30)
--- NOTE | 2020-03-10 08:27 | RAD ---
XR Chest 1 View Portable History: Intubated patient Comparison: Radiograph prior day Findings: Endotracheal tube tip above the belen 2.7 cm. Multifocal airspace opacities are similar. N o pneumothorax. Trace effusions. Heart size is enlarged. Enteric tube tip below diaphragm although out of field of view. Impression: Similar examination of the chest.
--- NOTE | 2020-03-10 08:58 | PRG ---
DATE OF SERVICE: 03/10/2020 35 minutes critical care time. SUBJECTIVE: The patient remains intubated on mechanical ventilation for COVID-19 pneumonia. OBJECTIVE: VITAL SIGNS: Temperature 97.5, pulse in the 40s to 50s, blood pressure 127/73. 24-hours intake 2520, output 1895. HEENT: Unremarkable. NECK: No adenopathy or JVD. LUNGS: Clear anteriorly. CARDIAC: S1, S2. Regular. ABDOMEN: Soft. EXTREMITIES: No edema. IMAGING DATA: X-ray shows continued clearing of bilateral infiltrates. LABORATORY DATA: ABG was not done. Does not look like chemistry was done either. ASSESSMENT: COVID-19 pneumonia. PLAN: I am going to stop the extra IV fluids. She looks eminently weanable, so I am going to drop the rate on the ventilator, drop her PEEP, and drop her FiO2. I will repeat her labs tomorrow. She will continue therapy with the dexamethasone, enoxaparin, ascorbic acid, etc. Job ID: [id number]
[2020-03-10] MEDS: Dexamethasone 4 mg/ml Vial SLOW IVP SCH (09:09)
[2020-03-10] MEDS: Enoxaparin Sodium 40 MG/0.4 ML SYRINGE SC SCH (09:09)
[2020-03-10] MEDS: Multivit, Therapeutic 1 TAB PO SCH (09:11)
[2020-03-10] MEDS: Cyanocobalamin (Vitamin B-12) 1,000 MCG TAB PO SCH (09:11)
[2020-03-10] MEDS: Folic Acid 1 MG TAB PO SCH (09:11)
[2020-03-10] MEDS: Ascorbic Acid 500 mg Chewable Tablet PO SCH (09:11)
[2020-03-10] MEDS: Famotidine 20 MG TAB PER TUBE SCH ×2 (09:11→21:42)
--- NOTE | 2020-03-10 10:28 | PDOC.HOSPP ---
- Subjective Encounter Date: 03/10/20 Encounter Time: 09:40 Subjective: Patient seen and examined bedside, on ventilator, no change - Objective Vital Signs & Weight: Vital Signs (12 hours) Pulse Resp BP 03/10/20 08:11 47 L 03/10/20 08:00 12 03/10/20 06:00 16 03/10/20 04:10 48 L 130/74 03/10/20 04:00 16 03/10/20 02:00 16 03/10/20 00:00 16 03/09/20 23:45 49 L Weight Admit Weight 106 lb 3.2 oz Weight 115 lb 8.356 oz Most Recent Monitor Data Heart Rate from ECG 48 NIBP 135/76 NIBP BP-Mean 95 Respiration from ECG 12 SpO2 100 I&O: 03/09/20 03/10/20 03/11/20 06:59 06:59 06:59 Intake Total 2068.2 2520.4 Output Total 1765 1895 Balance 303.2 625.4 Result Diagrams: 03/05/20 07:41 03/08/20 03:19 Radiology Reviewed by me: Yes EKG Reviewed by me: Yes Hospitalist ROS - Review of Systems ROS unobtainable: due to endotracheal tube - Medication Medications: Active Medications Generic Name Dose Route Start Last Admin Trade Name Freq PRN Reason Stop Dose Admin Acetaminophen 650 mg 03/02/20 20:10 03/04/20 23:50 Acetaminophen 325 Mg Tab PO 650 mg Q4H PRN Administration Headache/Fever/Mild Pain (1-3) Ascorbic Acid 1,000 mg 03/03/20 09:00 03/10/20 09:11 Ascorbic Acid 500 Mg Chewable Tablet PO 1,000 mg DAILY CONSTANCE Administration Cyanocobalamin 1,000 mcg 03/04/20 09:00 03/10/20 09:11 Cyanocobalamin (Vitamin B-12) 1,000 Mcg Tab PO 1,000 mcg DAILY CONSTANCE Administration Dexamethasone 6 mg 03/03/20 09:00 03/10/20 09:09 Dexamethasone 4 Mg/Ml Vial SLOW IVP 6 mg DAILY CONSTANCE Administration Enoxaparin Sodium 40 mg 03/03/20 09:00 03/10/20 09:09 Enoxaparin Sodium 40 Mg/0.4 Ml Syringe SC 40 mg 0900 CONSTANCE Administration Famotidine 20 mg 03/07/20 09:00 03/10/20 09:11 Famotidine 20 Mg Tab PER TUBE 20 mg Q12HR CONSTANCE Administration Folic Acid 1 mg 03/04/20 09:00 03/10/20 09:11 Folic Acid 1 Mg Tab PO 1 mg DAILY CONSTANCE Administration Fentanyl Citrate 2,000 mcg/ 100 mls @ 0 mls/hr 03/05/20 07:30 03/09/20 23:46 Sodium Chloride IV 04/04/20 07:30 100 mls INF CONSTANCE Administration Protocol Per Protocol Dexmedetomidine HCl 400 mcg/ 100 mls @ 0 mls/hr 03/08/20 09:30 03/09/20 20:13 Sodium Chloride IVPB 100 mls INF CONSTANCE Administration Protocol Per Protocol Lorazepam 2 mg 03/05/20 07:30 03/10/20 06:31 Lorazepam 2 Mg/Ml Vial SLOW IVP 04/04/20 07:30 2 mg Q1H PRN Administration Breakthrough agitation Multivitamins 1 tab 03/04/20 09:00 03/10/20 09:11 Multivit, Therapeutic 1 Tab PO 1 tab DAILY CONSTANCE Administration Propofol 1,000 mg 03/05/20 07:30 03/08/20 08:20 Propofol 1,000 Mg/100 Ml Vial IV 04/04/20 07:30 1,000 mg INF PRN Administration TO ACHIEVE GOAL RASS Protocol Sodium Chloride 10 ml 03/03/20 00:45 03/07/20 08:49 Flush - Normal Saline 10 Ml Syringe IVF 10 ml PRN PRN Administration Saline Flush Zinc Sulfate 220 mg 03/03/20 21:00 03/09/20 20:13 Zinc Sulfate 220 Mg Cap PO 220 mg HS CONSTANCE Administration - Exam General Appearance: NAD General - other findings: On ventilator ENT - other findings: Endotracheal tube in place Heart: RRR, no murmur, no gallops Respiratory: no wheezes, no rales, no ronchi Gastrointestinal: non-distended, normal bowel sounds Extremities: no edema Hosp A/P (1) Acute respiratory failure with hypoxemia Code(s): J96.01 - ACUTE RESPIRATORY FAILURE WITH HYPOXIA Status: Acute (2) COVID-19 Code(s): U07.1 - COVID-19 Status: Acute (3) HTN (hypertension) Code(s): I10 - ESSENTIAL (PRIMARY) HYPERTENSION Status: Acute Qualifiers: Hypertension type: essential hypertension Qualified Code(s): I10 - Essential (primary) hypertension (4) Hyperthyroidism Code(s): E05.90 - THYROTOXICOSIS, UNSP WITHOUT THYROTOXIC CRISIS OR STORM Status: Acute (5) Metabolic encephalopathy Code(s): G93.41 - METABOLIC ENCEPHALOPATHY Status: Acute (6) Pneumonia Code(s): J18.9 - PNEUMONIA, UNSPECIFIED ORGANISM Status: Acute (7) Sepsis Code(s): A41.9 - SEPSIS, UNSPECIFIED ORGANISM Status: Acute (8) Hypothyroidism Code(s): E03.9 - HYPOTHYROIDISM, UNSPECIFIED Status: Chronic Qualifiers: Hypothyroidism type: unspecified Qualified Code(s): E03.9 - Hypothyroidism, unspecified - Plan old records reviewed/req Medications reviewed and continue for symptomatic and supportive care Ventilator as per pulmonology, not wean able Prognosis guarded
[2020-03-10] MEDS: fentaNYL Citrate/PF 2,000 MCG in Sodium Chloride 0.9% 60 ML IV SCH (17:57)
[2020-03-10] MEDS: Zinc Sulfate 220 MG CAP PO SCH (21:42)
[2020-03-11 03:43] LABS: #Eosinphils 0.1 thou/uL (0.0-0.7); #Lymphocytes 1.2 thou/uL (1.20-3.40); #Monocytes 1.1 thou/uL (0.11-0.59); #Neutrophils 9.4 thou/uL (1.40-6.50); %Basophils 0.3 % (0.0-1.0); %Eosinophils 0.4 % (0.0-10.0); %Lymphocytes 9.9 % (21.0-51.0); %Monocytes 9.2 % (0.0-10.0); %Neutrophils 80.1 % (42.0-75.0); Hemoglobin 11.4 g/dL (12.0-16.0); Mean Corpuscular HGB CONC 34.9 g/dL (32.0-36.0); Mean Corpuscular Hemoglobin 32.3 pg (27.0-31.0); Mean Corpuscular Volume 92.7 fL (78.0-98.0); Mean Platelet Volume 8.8 fL (7.4-10.4); Platelet Count 337 thou/uL (130-400); RBC Distribution Width 11.9 % (11.5-14.5); Red Blood Cell (RBC) Count 3.53 mill/uL (4.20-5.40); White Blood Cell (WBC) Count 11.7 thou/uL (4.8-10.8)
[2020-03-11 04:05] LABS: Anion Gap 11 mmol/L (10-20); BUN (Urea Nitrogen) 24 mg/dL (9.8-20.1); Calc. Creatinine Clearance 63 mL/min (70-130); Calcium 8.1 mg/dL (7.8-10.44); Carbon Dioxide 25 mmol/L (23-31); Chloride 106 mmol/L (98-107); Estimated GFR-MDRD Greater than 90; Glucose 155 mg/dL (83-110); Potassium 4.2 mmol/L (3.5-5.1); Sodium 138 mmol/L (136-145)
[2020-03-11] MEDS: Lorazepam 2 MG/ML VIAL SLOW IVP PRN (07:56)
[2020-03-11 08:17] LABS: Actual Bicarbonate (HCO3a) 24.5 mEq/L (22-28); Base Excess (BEa) 0.9 mEq/L (-2.0 to +3.0); CO2 Tension 35.5 mmHg (35.0-45.0); Calcium, Ionized (arterial) 1.17 mmol/L (1.12-1.30); Carboxyhemoglobin (COHb) 0.3 gm% (0.0-3.0); Hemoglobin (Hb) 11.4 g/dL (12.0-16.0); Potassium - ABG Lab 3.85 mmol/L (3.70-5.30); pH, Arterial 7.46 (7.35-7.45)
--- NOTE | 2020-03-11 08:35 | RAD ---
PORTABLE CHEST 1 VIEW: Date: 03/11/2020 Time: 0537 hours HISTORY: Respiratory failure. COVID pneumonia. COMPARISON: Previous day. FINDINGS: Endotracheal and nasogastric tubes remain in place. The heart size is normal. The aorta is tortuous. The lungs are well expanded with stable multifocal air space opacities. No pneumothoraces or large ef fusions are seen. IMPRESSION: Stable exam. POS: OFF
[2020-03-11] MEDS: Enoxaparin Sodium 40 MG/0.4 ML SYRINGE SC SCH (08:48)
[2020-03-11] MEDS: Dexamethasone 4 mg/ml Vial SLOW IVP SCH (08:49)
[2020-03-11] MEDS: Famotidine 20 MG TAB PER TUBE SCH ×2 (08:49→21:31)
[2020-03-11] MEDS: Folic Acid 1 MG TAB PO SCH (08:51)
[2020-03-11] MEDS: Ascorbic Acid 500 mg Chewable Tablet PO SCH (08:51)
[2020-03-11] MEDS: Cyanocobalamin (Vitamin B-12) 1,000 MCG TAB PO SCH (08:51)
[2020-03-11] MEDS: Multivit, Therapeutic 1 TAB PO SCH (08:52)
--- NOTE | 2020-03-11 12:00 | PDOC.HOSPP ---
- Subjective Encounter Date: 03/11/20 Encounter Time: 10:00 Subjective: Patient seen and examined. Patient is on ventilator, no overnight events - Objective Vital Signs & Weight: Vital Signs (12 hours) Pulse Resp Pulse Ox 03/11/20 10:00 15 03/11/20 08:00 12 98 03/11/20 06:00 12 03/11/20 04:00 12 03/11/20 02:38 76 03/11/20 02:00 12 03/11/20 01:15 54 L 03/11/20 00:00 12 Weight Admit Weight 106 lb 3.2 oz Weight 119 lb 7.849 oz Most Recent Monitor Data Heart Rate from ECG 51 NIBP 129/78 NIBP BP-Mean 95 Respiration from ECG 20 SpO2 99 I&O: 03/10/20 03/11/20 03/12/20 06:59 06:59 06:59 Intake Total 2520.4 1161 300 Output Total 1895 1685 300 Balance 625.4 -524 0 Result Diagrams: 03/11/20 03:29 03/11/20 03:29 Radiology Reviewed by me: Yes EKG Reviewed by me: Yes Hospitalist ROS - Review of Systems ROS unobtainable: due to endotracheal tube - Medication Medications: Active Medications Generic Name Dose Route Start Last Admin Trade Name Freq PRN Reason Stop Dose Admin Acetaminophen 650 mg 03/02/20 20:10 03/04/20 23:50 Acetaminophen 325 Mg Tab PO 650 mg Q4H PRN Administration Headache/Fever/Mild Pain (1-3) Ascorbic Acid 1,000 mg 03/03/20 09:00 03/11/20 08:51 Ascorbic Acid 500 Mg Chewable Tablet PO 1,000 mg DAILY CONSTANCE Administration Cyanocobalamin 1,000 mcg 03/04/20 09:00 03/11/20 08:51 Cyanocobalamin (Vitamin B-12) 1,000 Mcg Tab PO 1,000 mcg DAILY CONSTANCE Administration Dexamethasone 6 mg 03/03/20 09:00 03/11/20 08:49 Dexamethasone 4 Mg/Ml Vial SLOW IVP 6 mg DAILY CONSTANCE Administration Enoxaparin Sodium 40 mg 03/03/20 09:00 03/11/20 08:48 Enoxaparin Sodium 40 Mg/0.4 Ml Syringe SC 40 mg 09 CONSTANCE Administration Famotidine 20 mg 03/07/20 09:00 03/11/20 08:49 Famotidine 20 Mg Tab PER TUBE 20 mg Q12HR CONSTANCE Administration Folic Acid 1 mg 03/04/20 09:00 03/11/20 08:51 Folic Acid 1 Mg Tab PO 1 mg DAILY CONSTANCE Administration Fentanyl Citrate 2,000 mcg/ 100 mls @ 0 mls/hr 03/05/20 07:30 03/10/20 17:57 Sodium Chloride IV 04/04/20 07:30 100 mls INF CONSTANCE Administration Protocol Per Protocol Dexmedetomidine HCl 400 mcg/ 100 mls @ 0 mls/hr 03/08/20 09:30 03/11/20 05:27 Sodium Chloride IVPB 100 mls INF CONSTANCE Administration Protocol Per Protocol Lorazepam 2 mg 03/05/20 07:30 03/11/20 07:56 Lorazepam 2 Mg/Ml Vial SLOW IVP 04/04/20 07:30 2 mg Q1H PRN Administration Breakthrough agitation Multivitamins 1 tab 03/04/20 09:00 03/11/20 08:52 Multivit, Therapeutic 1 Tab PO 1 tab DAILY CONSTANCE Administration Propofol 1,000 mg 03/05/20 07:30 03/08/20 08:20 Propofol 1,000 Mg/100 Ml Vial IV 04/04/20 07:30 1,000 mg INF PRN Administration TO ACHIEVE GOAL RASS Protocol Sodium Chloride 10 ml 03/03/20 00:45 03/07/20 08:49 Flush - Normal Saline 10 Ml Syringe IVF 10 ml PRN PRN Administration Saline Flush Zinc Sulfate 220 mg 03/03/20 21:00 03/10/20 21:42 Zinc Sulfate 220 Mg Cap PO 220 mg HS CONSTANCE Administration - Exam General Appearance: NAD Eye: PERRL ENT - other findings: Intubated Neck: no JVD Heart: RRR, no murmur, no gallops Respiratory: no wheezes, no rales, no ronchi Gastrointestinal: soft, non-distended, normal bowel sounds Extremities: no edema Hosp A/P (1) Acute respiratory failure with hypoxemia Code(s): J96.01 - ACUTE RESPIRATORY FAILURE WITH HYPOXIA Status: Acute (2) COVID-19 Code(s): U07.1 - COVID-19 Status: Acute (3) HTN (hypertension) Code(s): I10 - ESSENTIAL (PRIMARY) HYPERTENSION Status: Acute Qualifiers: Hypertension type: essential hypertension Qualified Code(s): I10 - Essential (primary) hypertension (4) Hyperthyroidism Code(s): E05.90 - THYROTOXICOSIS, UNSP WITHOUT THYROTOXIC CRISIS OR STORM Status: Acute (5) Metabolic encephalopathy Code(s): G93.41 - METABOLIC ENCEPHALOPATHY Status: Acute (6) Pneumonia Code(s): J18.9 - PNEUMONIA, UNSPECIFIED ORGANISM Status: Acute (7) Sepsis Code(s): A41.9 - SEPSIS, UNSPECIFIED ORGANISM Status: Acute (8) Hypothyroidism Code(s): E03.9 - HYPOTHYROIDISM, UNSPECIFIED Status: Chronic Qualifiers: Hypothyroidism type: unspecified Qualified Code(s): E03.9 - Hypothyroidism, unspecified - Plan old records reviewed/req Medications reviewed, Ventilator as per pulmonary Weaning as tolerated Supportive care
[2020-03-11] MEDS: fentaNYL Citrate/PF 2,000 MCG in Sodium Chloride 0.9% 60 ML IV SCH (14:42)
--- NOTE | 2020-03-11 15:13 | PRG ---
DATE OF SERVICE: 03/11/2020 SUBJECTIVE: Adiel Posada is clinically unchanged. OBJECTIVE: VITAL SIGNS: Respiratory rates at 12, FiO2 is at 45%, blood pressure 144/85, heart rates in the high 40s to low 50s. LUNGS: Unchanged. HEART: Unchanged. ABDOMEN: Unchanged. LABORATORY DATA: White count 11.7, hemoglobin 11.4, platelets 337. Electrolytes are unremarkable. Creatinine 0.63. Unfortunately, her over the weekend. Family elected to withdraw support. IMPRESSION: 1. COVID pneumonia. 2. Underlying dementia making her understanding of the process and management of her anxiety more difficult. She is still not weanable. Job ID: [id number]
[2020-03-11 16:33] LABS: O2 Tension (PaO2), arterial 58.3 mmHg (> 70.0); Puncture Site L.R.
[2020-03-11 16:34] LABS: ALV-art Gradient 218.175 mmHg (0-20); Peep/CPAP 7.5 cmH2O
[2020-03-11] MEDS: Zinc Sulfate 220 MG CAP PO SCH (21:31)
[2020-03-12 04:08] LABS: #Lymphocytes 1.1 thou/uL (1.20-3.40); #Monocytes 1.2 thou/uL (0.11-0.59); #Neutrophils 9.2 thou/uL (1.40-6.50); %Basophils 0.1 % (0.0-1.0); %Eosinophils 0.2 % (0.0-10.0); %Lymphocytes 9.7 % (21.0-51.0); %Monocytes 10.3 % (0.0-10.0); %Neutrophils 79.7 % (42.0-75.0); Hemoglobin 11.6 g/dL (12.0-16.0); Mean Corpuscular Hemoglobin 32.4 pg (27.0-31.0); Mean Corpuscular Volume 92.6 fL (78.0-98.0); Mean Platelet Volume 8.9 fL (7.4-10.4); Platelet Count 350 thou/uL (130-400); RBC Distribution Width 12.1 % (11.5-14.5); Red Blood Cell (RBC) Count 3.57 mill/uL (4.20-5.40); White Blood Cell (WBC) Count 11.5 thou/uL (4.8-10.8)
[2020-03-12 04:28] LABS: Anion Gap 12 mmol/L (10-20); BUN (Urea Nitrogen) 21 mg/dL (9.8-20.1); Calc. Creatinine Clearance 71 mL/min (70-130); Calcium 8.5 mg/dL (7.8-10.44); Carbon Dioxide 24 mmol/L (23-31); Chloride 104 mmol/L (98-107); Estimated GFR-MDRD Greater than 90; Glucose 142 mg/dL (83-110); Potassium 4.4 mmol/L (3.5-5.1); Sodium 136 mmol/L (136-145)
--- NOTE | 2020-03-12 07:58 | RAD ---
PORTABLE CHEST: Date: 03/12/2020 HISTORY: COVID pneumonia. COMPARISON: Prior day's exam. FINDINGS: Endotracheal and NG tubes are in satisfactory position. Heart size appears borderline in size. Areas of multifocal infiltrate are stable. IMPRESSION: Multifocal infiltrate stable, consistent with history of COVID pneumonia. POS: OFF
[2020-03-12 08:19] LABS: Actual Bicarbonate (HCO3a) 26.7 mEq/L (22-28); Base Excess (BEa) 3.1 mEq/L (-2.0 to +3.0); CO2 Tension 37.7 mmHg (35.0-45.0); Calcium, Ionized (arterial) 1.19 mmol/L (1.12-1.30); Carboxyhemoglobin (COHb) 0.3 gm% (0.0-3.0); Hemoglobin (Hb) 19.4 g/dL (12.0-16.0); O2 Tension (PaO2), arterial 70.1 mmHg (> 70.0); Potassium - ABG Lab 3.86 mmol/L (3.70-5.30); pH, Arterial 7.47 (7.35-7.45)
[2020-03-12 08:20] LABS: Peep/CPAP 7.5 cmH2O; Puncture Site RRA
[2020-03-12 08:21] LABS: ALV-art Gradient 203.625 mmHg (0-20)
[2020-03-12] MEDS: Cyanocobalamin (Vitamin B-12) 1,000 MCG TAB PO SCH (08:55)
[2020-03-12] MEDS: Enoxaparin Sodium 40 MG/0.4 ML SYRINGE SC SCH (08:55)
[2020-03-12] MEDS: Multivit, Therapeutic 1 TAB PO SCH (08:55)
[2020-03-12] MEDS: Folic Acid 1 MG TAB PO SCH (08:55)
[2020-03-12] MEDS: Dexamethasone 4 mg/ml Vial SLOW IVP SCH (08:55)
[2020-03-12] MEDS: Famotidine 20 MG TAB PER TUBE SCH ×2 (08:55→21:26)
[2020-03-12] MEDS: Ascorbic Acid 500 mg Chewable Tablet PO SCH (08:55)
--- NOTE | 2020-03-12 11:17 | PDOC.HOSPP ---
- Subjective Encounter Date: 03/12/20 Encounter Time: 10:00 Subjective: Patient seen and examined. Patient is on ventilator, no overnight events - Objective Vital Signs & Weight: Vital Signs (12 hours) Pulse Resp BP Pulse Ox 03/12/20 10:48 48 L 03/12/20 08:16 50 L 03/12/20 08:00 12 98 03/12/20 06:00 12 03/12/20 04:00 12 03/12/20 03:07 52 L 164/86 H 03/12/20 02:00 12 03/12/20 00:48 54 L 03/12/20 00:00 12 Weight Admit Weight 106 lb 3.2 oz Weight 120 lb 9.486 oz Most Recent Monitor Data Heart Rate from ECG 59 NIBP 125/74 NIBP BP-Mean 91 Respiration from ECG 15 SpO2 98 I&O: 03/11/20 03/12/20 03/13/20 06:59 06:59 06:59 Intake Total 1161 1267.1 70 Output Total 1685 2225 265 [facility] -524 -957.9 -195 Result Diagrams: 03/12/20 03:01 03/12/20 03:01 Radiology Reviewed by me: Yes EKG Reviewed by me: Yes Hospitalist ROS - Review of Systems ROS unobtainable: due to endotracheal tube - Medication Medications: Active Medications Generic Name Dose Route Start Last Admin Trade Name Freq PRN Reason Stop Dose Admin Acetaminophen 650 mg 03/02/20 20:10 03/04/20 23:50 Acetaminophen 325 Mg Tab PO 650 mg Q4H PRN Administration Headache/Fever/Mild Pain (1-3) Ascorbic Acid 1,000 mg 03/03/20 09:00 03/12/20 08:55 Ascorbic Acid 500 Mg Chewable Tablet PO 1,000 mg DAILY CONSTANCE Administration Cyanocobalamin 1,000 mcg 03/04/20 09:00 03/12/20 08:55 Cyanocobalamin (Vitamin B-12) 1,000 Mcg Tab PO 1,000 mcg DAILY CONSTANCE Administration Dexamethasone 6 mg 03/03/20 09:00 03/12/20 08:55 Dexamethasone 4 Mg/Ml Vial SLOW IVP 6 mg DAILY CONSTANCE Administration Enoxaparin Sodium 40 mg 03/03/20 09:00 03/12/20 08:55 Enoxaparin Sodium 40 Mg/0.4 Ml Syringe SC 40 mg 0900 CONSTANCE Administration Famotidine 20 mg 03/07/20 09:00 03/12/20 08:55 Famotidine 20 Mg Tab PER TUBE 20 mg Q12HR CONSTANCE Administration Folic Acid 1 mg 03/04/20 09:00 03/12/20 08:55 Folic Acid 1 Mg Tab PO 1 mg DAILY CONSTANCE Administration Fentanyl Citrate 2,000 mcg/ 100 mls @ 0 mls/hr 03/05/20 07:30 03/11/20 14:42 Sodium Chloride IV 04/04/20 07:30 100 mls INF CONSTANCE Administration Protocol Per Protocol Dexmedetomidine HCl 400 mcg/ 100 mls @ 0 mls/hr 03/08/20 09:30 03/11/20 22:24 Sodium Chloride IVPB 100 mls INF CONSTANCE Administration Protocol Per Protocol Lorazepam 2 mg 03/05/20 07:30 03/11/20 07:56 Lorazepam 2 Mg/Ml Vial SLOW IVP 04/04/20 07:30 2 mg Q1H PRN Administration Breakthrough agitation Multivitamins 1 tab 03/04/20 09:00 03/12/20 08:55 Multivit, Therapeutic 1 Tab PO 1 tab DAILY CONSTANCE Administration Propofol 1,000 mg 03/05/20 07:30 03/08/20 08:20 Propofol 1,000 Mg/100 Ml Vial IV 04/04/20 07:30 1,000 mg INF PRN Administration TO ACHIEVE GOAL RASS Protocol Sodium Chloride 10 ml 03/03/20 00:45 03/07/20 08:49 Flush - Normal Saline 10 Ml Syringe IVF 10 ml PRN PRN Administration Saline Flush Zinc Sulfate 220 mg 03/03/20 21:00 03/11/20 21:31 Zinc Sulfate 220 Mg Cap PO 220 mg HS CONSTANCE Administration - Exam General Appearance: NAD ENT: normocephalic atraumatic Neck: no JVD Heart: RRR, no murmur, no gallops Respiratory: no wheezes, no rales, no ronchi Gastrointestinal: soft, normal bowel sounds Skin: normal turgor Hosp A/P (1) Acute respiratory failure with hypoxemia Code(s): J96.01 - ACUTE RESPIRATORY FAILURE WITH HYPOXIA Status: Acute (2) COVID-19 Code(s): U07.1 - COVID-19 Status: Acute (3) HTN (hypertension) Code(s): I10 - ESSENTIAL (PRIMARY) HYPERTENSION Status: Acute Qualifiers: Hypertension type: essential hypertension Qualified Code(s): I10 - Essential (primary) hypertension (4) Hyperthyroidism Code(s): E05.90 - THYROTOXICOSIS, UNSP WITHOUT THYROTOXIC CRISIS OR STORM Status: Acute (5) Metabolic encephalopathy Code(s): G93.41 - METABOLIC ENCEPHALOPATHY Status: Acute (6) Pneumonia Code(s): J18.9 - PNEUMONIA, UNSPECIFIED ORGANISM Status: Acute (7) Sepsis Code(s): A41.9 - SEPSIS, UNSPECIFIED ORGANISM Status: Acute (8) Hypothyroidism Code(s): E03.9 - HYPOTHYROIDISM, UNSPECIFIED Status: Chronic Qualifiers: Hypothyroidism type: unspecified Qualified Code(s): E03.9 - Hypothyroidism, unspecified - Plan old records reviewed/req, respiratory therapy Medications reviewed, Ventilator as per pulmonary Weaning as tolerated Supportive care
[2020-03-12] MEDS: fentaNYL Citrate/PF 2,000 MCG in Sodium Chloride 0.9% 60 ML IV SCH (15:43)
[2020-03-12] MEDS: Lorazepam 2 MG/ML VIAL SLOW IVP PRN (17:29)
--- NOTE | 2020-03-12 19:36 | PRG ---
DATE OF SERVICE: 03/12/2020 SUBJECTIVE: Adiel Posada remains ventilated. OBJECTIVE: VITAL SIGNS: Heart rates in the 50s, blood pressure 120/72, and respiratory rate is in the teens. LUNGS: Unchanged. HEART: Unchanged. ABDOMEN: Unchanged. LABORATORY DATA: White count 11.5, hemoglobin 11.6, and platelets 350. Sodium 136, potassium 4.4, chloride 104, bicarb 24, BUN 29, creatinine 0.5. PH 7.47, CO2 37, and PO2 70. IMPRESSION: Respiratory failure associated with COVID. She would not have any problems with weaning, in my opinion, if she did not have dementia. We will continue supportive care. I suspect the best option will be sometime this weekend early next week, just extubate her and see how she does this week. Job ID: [id number]
[2020-03-12] MEDS: Zinc Sulfate 220 MG CAP PO SCH (21:26)
[2020-03-13 03:58] LABS: Anion Gap 16 mmol/L (10-20); BUN (Urea Nitrogen) 29 mg/dL (9.8-20.1); Calc. Creatinine Clearance 67 mL/min (70-130); Calcium 8.5 mg/dL (7.8-10.44); Carbon Dioxide 22 mmol/L (23-31); Chloride 102 mmol/L (98-107); Estimated GFR-MDRD Greater than 90; Glucose 184 mg/dL (83-110); Potassium 4.5 mmol/L (3.5-5.1); Sodium 135 mmol/L (136-145)
[2020-03-13 04:13] LABS: Band 8 % (5-11); Hemoglobin 12.1 g/dL (12.0-16.0); Lymphocytes 7 % (21-51); MDiff Complete? YES; Mean Corpuscular HGB CONC 34.5 g/dL (32.0-36.0); Mean Corpuscular Hemoglobin 32.2 pg (27.0-31.0); Mean Corpuscular Volume 93.2 fL (78.0-98.0); Monocytes 8 % (0-10); Neutrophil 77 % (42-75); Platelet Count 230 thou/uL (130-400); RBC Distribution Width 12.4 % (11.5-14.5); Red Blood Cell (RBC) Count 3.77 mill/uL (4.20-5.40); White Blood Cell (WBC) Count 14.5 thou/uL (4.8-10.8)
--- NOTE | 2020-03-13 07:51 | RAD ---
Portable frontal chest radiograph: 03/13/2020 COMPARISON: 03/12/2020 HISTORY: Covid pneumonia, intubated patient FINDINGS: Stable endotracheal tube and nasogastric tube. Coarse linear interstitial density with superimposed airspace disease noted in both lung bases and pe rihilar regions, not significantly changed. Probable skinfold noted in the lateral right upper lobe region. IMPRESSION: No significant interval change.
[2020-03-13 08:03] LABS: Actual Bicarbonate (HCO3a) 24.7 mEq/L (22-28); Base Excess (BEa) 1.7 mEq/L (-2.0 to +3.0); CO2 Tension 33.2 mmHg (35.0-45.0); Calcium, Ionized (arterial) 1.18 mmol/L (1.12-1.30); Carboxyhemoglobin (COHb) 0.3 gm% (0.0-3.0); Hemoglobin (Hb) 11.7 g/dL (12.0-16.0); O2 Tension (PaO2), arterial 65.6 mmHg (> 70.0); Potassium - ABG Lab 3.88 mmol/L (3.70-5.30); pH, Arterial 7.49 (7.35-7.45)
[2020-03-13 08:05] LABS: Peep/CPAP 7.5 cmH2O; Puncture Site RRA
[2020-03-13] MEDS: Cyanocobalamin (Vitamin B-12) 1,000 MCG TAB PO SCH (08:10)
[2020-03-13] MEDS: Famotidine 20 MG TAB PER TUBE SCH ×2 (08:10→20:52)
[2020-03-13] MEDS: Folic Acid 1 MG TAB PO SCH (08:10)
[2020-03-13] MEDS: Ascorbic Acid 500 mg Chewable Tablet PO SCH (08:10)
[2020-03-13] MEDS: Dexamethasone 4 mg/ml Vial SLOW IVP SCH (08:10)
[2020-03-13] MEDS: Multivit, Therapeutic 1 TAB PO SCH (08:11)
[2020-03-13] MEDS: Enoxaparin Sodium 40 MG/0.4 ML SYRINGE SC SCH ×2 (08:11→20:53)
[2020-03-13] MEDS ORDERED: Haloperidol Lactate 5 MG/ML VIAL IM SCH (15:00)
--- NOTE | 2020-03-13 15:58 | PDOC.HOSPP ---
- Subjective Encounter Date: 03/13/20 Subjective: Remains intubated. - Objective Vital Signs & Weight: Vital Signs (12 hours) Pulse Resp Pulse Ox 03/13/20 15:20 64 03/13/20 14:00 12 03/13/20 13:17 64 03/13/20 12:00 14 03/13/20 10:40 54 L 03/13/20 10:00 12 03/13/20 08:00 56 L 12 03/13/20 07:23 98 03/13/20 06:00 12 03/13/20 04:00 13 Weight Admit Weight 106 lb 3.2 oz Weight 121 lb 11.123 oz Most Recent Monitor Data Heart Rate from ECG 66 NIBP 145/91 NIBP BP-Mean 109 Respiration from ECG 16 SpO2 100 I&O: 03/12/20 03/13/20 03/14/20 06:59 06:59 06:59 Intake Total 1267.1 1255.8 164 Output Total 2225 1675 585 Balance -957.9 -419.2 -421 Result Diagrams: 03/13/20 03:18 03/13/20 03:18 Hospitalist ROS - Medication Medications: Active Medications Generic Name Dose Route Start Last Admin Trade Name Freq PRN Reason Stop Dose Admin Acetaminophen 650 mg 03/02/20 20:10 03/04/20 23:50 Acetaminophen 325 Mg Tab PO 650 mg Q4H PRN Administration Headache/Fever/Mild Pain (1-3) Ascorbic Acid 1,000 mg 03/03/20 09:00 03/13/20 08:10 Ascorbic Acid 500 Mg Chewable Tablet PO 1,000 mg DAILY CONSTANCE Administration Cyanocobalamin 1,000 mcg 03/04/20 09:00 03/13/20 08:10 Cyanocobalamin (Vitamin B-12) 1,000 Mcg Tab PO 1,000 mcg DAILY CONSTANCE Administration Dexamethasone 6 mg 03/03/20 09:00 03/13/20 08:10 Dexamethasone 4 Mg/Ml Vial SLOW IVP 6 mg DAILY CONSTANCE Administration Famotidine 20 mg 03/07/20 09:00 03/13/20 08:10 Famotidine 20 Mg Tab PER TUBE 20 mg Q12HR CONSTANCE Administration Folic Acid 1 mg 03/04/20 09:00 03/13/20 08:10 Folic Acid 1 Mg Tab PO 1 mg DAILY CONSTANCE Administration Fentanyl Citrate 2,000 mcg/ 100 mls @ 0 mls/hr 03/05/20 07:30 03/12/20 15:43 Sodium Chloride IV 04/04/20 07:30 100 mls INF CONSTANCE Administration Protocol Per Protocol Dexmedetomidine HCl 400 mcg/ 100 mls @ 0 mls/hr 03/08/20 09:30 03/13/20 07:03 Sodium Chloride IVPB 100 mls INF CONSTANCE Administration Protocol Per Protocol Lorazepam 2 mg 03/05/20 07:30 03/12/20 17:29 Lorazepam 2 Mg/Ml Vial SLOW IVP 04/04/20 07:30 2 mg Q1H PRN Administration Breakthrough agitation Multivitamins 1 tab 03/04/20 09:00 03/13/20 08:11 Multivit, Therapeutic 1 Tab PO 1 tab DAILY CONSTANCE Administration Propofol 1,000 mg 03/05/20 07:30 03/08/20 08:20 Propofol 1,000 Mg/100 Ml Vial IV 04/04/20 07:30 1,000 mg INF PRN Administration TO ACHIEVE GOAL RASS Protocol Sodium Chloride 10 ml 03/03/20 00:45 03/13/20 08:11 Flush - Normal Saline 10 Ml Syringe IVF 10 ml PRN PRN Administration Saline Flush Zinc Sulfate 220 mg 03/03/20 21:00 03/12/20 21:26 Zinc Sulfate 220 Mg Cap PO 220 mg HS CONSTANCE Administration Hosp A/P - Plan Hosp A/P (1) Acute respiratory failure with hypoxemia Code(s): J96.01 - ACUTE RESPIRATORY FAILURE WITH HYPOXIA Status: Acute (2) COVID-19 Code(s): U07.1 - COVID-19 Status: Acute (3) HTN (hypertension) Code(s): I10 - ESSENTIAL (PRIMARY) HYPERTENSION Status: Acute Qualifiers: Hypertension type: essential hypertension Qualified Code(s): I10 - Essential (primary) hypertension (4) Hyperthyroidism Code(s): E05.90 - THYROTOXICOSIS, UNSP WITHOUT THYROTOXIC CRISIS OR STORM Status: Acute (5) Metabolic encephalopathy Code(s): G93.41 - METABOLIC ENCEPHALOPATHY Status: Acute (6) Pneumonia Code(s): J18.9 - PNEUMONIA, UNSPECIFIED ORGANISM Status: Acute (7) Sepsis Code(s): A41.9 - SEPSIS, UNSPECIFIED ORGANISM Status: Acute (8) Hypothyroidism Code(s): E03.9 - HYPOTHYROIDISM, UNSPECIFIED Status: Chronic Qualifiers: Hypothyroidism type: unspecified Qualified Code(s): E03.9 - Hypothyroidism, unspecified - Plan Continue vent management per pulmonology. The patient is on dexamethasone. Continue anticoagulation with enoxaparin.
[2020-03-13] MEDS: fentaNYL Citrate/PF 2,000 MCG in Sodium Chloride 0.9% 60 ML IV SCH (16:01)
[2020-03-13] MEDS: Haloperidol Lactate 5 MG/ML VIAL IM SCH ×2 (16:01→20:52)
--- NOTE | 2020-03-13 16:58 | PRG ---
DATE OF SERVICE: 03/13/2020 SUBJECTIVE: Adiel Posada remains sedated and ventilated. I had a long discussion with son, Prashanth, today. OBJECTIVE: VITAL SIGNS: Heart rate is in the 60s, blood pressure 145/91, respiratory rates in the teens. She is approximately 16 days into this illness. LUNGS: Unchanged. HEART: Unchanged. ABDOMEN: Unchanged. LABORATORY DATA: White count 14.5, hemoglobin 12.1, and platelets 230. Sodium 135, potassium 4.5, chloride 102, bicarb 22, BUN 29, creatinine 0.6. PH 7.9, CO2 of 30, and pO2 of 65. ASSESSMENT AND PLAN: Put her on around the clock Haldol to see if this helps with her intermittent agitation and allows decrease in the IV sedation. We have decreased her PEEP a little and turned the rate from 12 to 8. I am hoping by the end of this week and 1st part of next week she will be a candidate for extubation. Her son does not report that she had pre-existing dementia, so it may be that she is just encephalopathic with this illness. Job ID: [id number]
[2020-03-13] MEDS: Zinc Sulfate 220 MG CAP PO SCH (20:52)
[2020-03-14] MEDS: Haloperidol Lactate 5 MG/ML VIAL IM SCH ×6 (00:28→23:43)
[2020-03-14 03:58] LABS: #Basophils 0.1 thou/uL (0.0-0.2); #Lymphocytes 1.7 thou/uL (1.20-3.40); #Monocytes 1.8 thou/uL (0.11-0.59); #Neutrophils 12.9 thou/uL (1.40-6.50); %Basophils 0.5 % (0.0-1.0); %Eosinophils 0.1 % (0.0-10.0); %Lymphocytes 10.2 % (21.0-51.0); %Monocytes 10.7 % (0.0-10.0); %Neutrophils 78.6 % (42.0-75.0); Mean Corpuscular HGB CONC 33.6 g/dL (32.0-36.0); Mean Corpuscular Hemoglobin 31.3 pg (27.0-31.0); Mean Corpuscular Volume 93.3 fL (78.0-98.0); Mean Platelet Volume 8.7 fL (7.4-10.4); Platelet Count 366 thou/uL (130-400); RBC Distribution Width 12.3 % (11.5-14.5); Red Blood Cell (RBC) Count 3.83 mill/uL (4.20-5.40); White Blood Cell (WBC) Count 16.4 thou/uL (4.8-10.8)
[2020-03-14 04:17] LABS: Anion Gap 15 mmol/L (10-20); BUN (Urea Nitrogen) 31 mg/dL (9.8-20.1); Calc. Creatinine Clearance 66 mL/min (70-130); Calcium 8.9 mg/dL (7.8-10.44); Carbon Dioxide 24 mmol/L (23-31); Chloride 103 mmol/L (98-107); Estimated GFR-MDRD Greater than 90; Glucose 164 mg/dL (83-110); Potassium 4.2 mmol/L (3.5-5.1); Sodium 138 mmol/L (136-145)
--- NOTE | 2020-03-14 07:54 | RAD ---
Exam: Chest one view HISTORY:COVID positive patient. COVID pneumonia. Intubated patient. Respiratory distress. Comparison: 03/13/2020 FINDINGS: Lines and tubes: Redemonstration of endotracheal tube, nasogastric tube and overlying wood window and door craftsman leads. Cardiac silhouette: Normal Aorta: Atherosclerosis of the aortic knob. Pulmonary vessels: Normal Costophrenic angles: Small right-sided pleural effusion is suspected. LUNGS: Stable multifocal interstitial and alveolar opacities. Pneumothorax: None Osseous abnormalities: None IMPRESSION: Stable multilobar pneumonia.
[2020-03-14] MEDS: Ascorbic Acid 500 mg Chewable Tablet PO SCH (08:10)
[2020-03-14] MEDS: Dexamethasone 4 mg/ml Vial SLOW IVP SCH (08:10)
[2020-03-14] MEDS: Aspirin 81 mg Enteric Coated Tablet PO SCH (08:11)
[2020-03-14] MEDS: Famotidine 20 MG TAB PER TUBE SCH ×2 (08:11→19:53)
[2020-03-14] MEDS: Cyanocobalamin (Vitamin B-12) 1,000 MCG TAB PO SCH (08:11)
[2020-03-14] MEDS: Folic Acid 1 MG TAB PO SCH (08:11)
[2020-03-14] MEDS: Multivit, Therapeutic 1 TAB PO SCH (08:11)
[2020-03-14] MEDS: Enoxaparin Sodium 40 MG/0.4 ML SYRINGE SC SCH ×2 (08:11→19:53)
[2020-03-14 08:55] LABS: Base Excess (BEa) 5.5 mEq/L (-2.0 to +3.0); CO2 Tension 38.7 mmHg (35.0-45.0); Calcium, Ionized (arterial) 1.19 mmol/L (1.12-1.30); Carboxyhemoglobin (COHb) 0.2 gm% (0.0-3.0); O2 Tension (PaO2), arterial 69.7 mmHg (> 70.0); pH, Arterial 7.49 (7.35-7.45)
[2020-03-14 09:02] LABS: ALV-art Gradient 167.125 mmHg (0-20)
--- NOTE | 2020-03-14 13:49 | PDOC.HOSPP ---
- Subjective Encounter Date: 03/14/20 non-verbal (Remains on the vent.) - Objective Vital Signs & Weight: Vital Signs (12 hours) Pulse Resp BP Pulse Ox 03/14/20 12:00 14 03/14/20 11:03 64 165/85 H 03/14/20 10:00 10 L 03/14/20 08:30 66 149/88 H 03/14/20 08:00 16 03/14/20 07:36 100 03/14/20 06:00 15 03/14/20 04:00 11 L 03/14/20 02:39 70 144/65 H 03/14/20 02:00 11 L Weight Admit Weight 106 lb 3.2 oz Weight 112 lb 14.027 oz Most Recent Monitor Data Heart Rate from ECG 67 NIBP 153/83 NIBP BP-Mean 106 Respiration from ECG 15 SpO2 99 I&O: 03/13/20 03/14/20 03/15/20 06:59 06:59 06:59 Intake Total 1255.8 1364.6 150 Output Total 1675 5 1225 Balance -419.2 -660.4 -1075 Result Diagrams: 03/14/20 03:49 03/14/20 03:49 Hospitalist ROS - Medication Medications: Active Medications Generic Name Dose Route Start Last Admin Trade Name Freq PRN Reason Stop Dose Admin Acetaminophen 650 mg 03/02/20 20:10 03/04/20 23:50 Acetaminophen 325 Mg Tab PO 650 mg Q4H PRN Administration Headache/Fever/Mild Pain (1-3) Ascorbic Acid 1,000 mg 03/03/20 09:00 03/14/20 08:10 Ascorbic Acid 500 Mg Chewable Tablet PO 1,000 mg DAILY CONSTANCE Administration Aspirin 81 mg 03/14/20 09:00 03/14/20 08:11 Aspirin 81 Mg Enteric Coated Tablet PO 81 mg DAILY CONSTANCE Administration Cyanocobalamin 1,000 mcg 03/04/20 09:00 03/14/20 08:11 Cyanocobalamin (Vitamin B-12) 1,000 Mcg Tab PO 1,000 mcg DAILY CONSTANCE Administration Dexamethasone 6 mg 03/03/20 09:00 03/14/20 08:10 Dexamethasone 4 Mg/Ml Vial SLOW IVP 6 mg DAILY CONSTANCE Administration Enoxaparin Sodium 40 mg 03/13/20 21:00 03/14/20 08:11 Enoxaparin Sodium 40 Mg/0.4 Ml Syringe SC 40 mg 0900,2100 CONSTANCE Administration Famotidine 20 mg 03/07/20 09:00 03/14/20 08:11 Famotidine 20 Mg Tab PER TUBE 20 mg Q12HR CONSTANCE Administration Folic Acid 1 mg 03/04/20 09:00 03/14/20 08:11 Folic Acid 1 Mg Tab PO 1 mg DAILY CONSTANCE Administration Haloperidol Lactate 5 mg 03/13/20 16:00 03/14/20 12:15 Haloperidol Lactate 5 Mg/Ml Vial IM 5 mg Q4H CONSTANCE Administration Fentanyl Citrate 2,000 mcg/ 100 mls @ 0 mls/hr 03/05/20 07:30 03/13/20 16:01 Sodium Chloride IV 04/04/20 07:30 100 mls INF CONSTANCE Administration Protocol Per Protocol Dexmedetomidine HCl 400 mcg/ 100 mls @ 0 mls/hr 03/08/20 09:30 03/14/20 13:37 Sodium Chloride IVPB 100 mls INF CONSTANCE Administration Protocol Per Protocol Lorazepam 2 mg 03/05/20 07:30 03/12/20 17:29 Lorazepam 2 Mg/Ml Vial SLOW IVP 04/04/20 07:30 2 mg Q1H PRN Administration Breakthrough agitation Multivitamins 1 tab 03/04/20 09:00 03/14/20 08:11 Multivit, Therapeutic 1 Tab PO 1 tab DAILY CONSTANCE Administration Propofol 1,000 mg 03/05/20 07:30 03/08/20 08:20 Propofol 1,000 Mg/100 Ml Vial IV 04/04/20 07:30 1,000 mg INF PRN Administration TO ACHIEVE GOAL RASS Protocol Sodium Chloride 10 ml 03/03/20 00:45 03/13/20 08:11 Flush - Normal Saline 10 Ml Syringe IVF 10 ml PRN PRN Administration Saline Flush Zinc Sulfate 220 mg 03/03/20 21:00 03/13/20 20:52 Zinc Sulfate 220 Mg Cap PO 220 mg HS COSNTANCE Administration Hosp A/P - Plan Hosp A/P (1) Acute respiratory failure with hypoxemia Code(s): J96.01 - ACUTE RESPIRATORY FAILURE WITH HYPOXIA Status: Acute (2) COVID-19 Code(s): U07.1 - COVID-19 Status: Acute (3) HTN (hypertension) Code(s): I10 - ESSENTIAL (PRIMARY) HYPERTENSION Status: Acute Qualifiers: Hypertension type: essential hypertension Qualified Code(s): I10 - Essential (primary) hypertension (4) Hyperthyroidism Code(s): E05.90 - THYROTOXICOSIS, UNSP WITHOUT THYROTOXIC CRISIS OR STORM Status: Acute (5) Metabolic encephalopathy Code(s): G93.41 - METABOLIC ENCEPHALOPATHY Status: Acute (6) Pneumonia Code(s): J18.9 - PNEUMONIA, UNSPECIFIED ORGANISM Status: Acute (7) Sepsis Code(s): A41.9 - SEPSIS, UNSPECIFIED ORGANISM Status: Acute (8) Hypothyroidism Code(s): E03.9 - HYPOTHYROIDISM, UNSPECIFIED Status: Chronic Qualifiers: Hypothyroidism type: unspecified Qualified Code(s): E03.9 - Hypothyroidism, unspecified - Plan Continue vent management per pulmonology. Patient requiring less FiO2 and PEEP today. The patient is on dexamethasone. Continue anticoagulation with enoxaparin.
--- NOTE | 2020-03-14 16:38 | PRG ---
DATE OF SERVICE: 03/14/2020 SUBJECTIVE: Adiel Posada appears to be improving. The Haldol appears to lead to improving her encephalopathy. Decreased her ventilatory support significantly. Tomorrow morning will probably go to a CPAP trial/spontaneous breathing trial. OBJECTIVE: VITAL SIGNS: Blood pressure 163/86, heart rate 60, FiO2 is 40%, respiratory rates in the teens. LUNGS: Remarkable for coarse equal breath sounds. HEART: Regular rhythm. ABDOMEN: Soft. EXTREMITIES: Without edema. LABORATORY DATA: White count 16.4, hemoglobin 12.0, and platelets 366. Sodium 138, potassium 4.2, chloride 103, bicarb 24, BUN 31, and creatinine 0.63. A pH 7.49, CO2 of 38, and pO2 of 69. IMPRESSION: COVID pneumonia with respiratory failure, clinically improving. She may be weanable in the next 24 to 48 hours. Job ID: [id number]
[2020-03-14] MEDS: fentaNYL Citrate/PF 2,000 MCG in Sodium Chloride 0.9% 60 ML IV SCH (18:50)
[2020-03-14] MEDS: Zinc Sulfate 220 MG CAP PO SCH (19:53)
[2020-03-15 03:45] LABS: #Eosinphils 0.1 thou/uL (0.0-0.7); #Lymphocytes 1.6 thou/uL (1.20-3.40); #Neutrophils 10.8 thou/uL (1.40-6.50); %Basophils 0.2 % (0.0-1.0); %Eosinophils 0.4 % (0.0-10.0); %Lymphocytes 11.6 % (21.0-51.0); %Monocytes 7.5 % (0.0-10.0); %Neutrophils 80.3 % (42.0-75.0); Hemoglobin 11.6 g/dL (12.0-16.0); Mean Corpuscular HGB CONC 34.4 g/dL (32.0-36.0); Mean Corpuscular Hemoglobin 31.8 pg (27.0-31.0); Mean Corpuscular Volume 92.4 fL (78.0-98.0); Mean Platelet Volume 8.7 fL (7.4-10.4); Platelet Count 385 thou/uL (130-400); RBC Distribution Width 12.5 % (11.5-14.5); Red Blood Cell (RBC) Count 3.65 mill/uL (4.20-5.40); White Blood Cell (WBC) Count 13.5 thou/uL (4.8-10.8)
[2020-03-15 04:07] LABS: Anion Gap 12 mmol/L (10-20); BUN (Urea Nitrogen) 30 mg/dL (9.8-20.1); Calc. Creatinine Clearance 62 mL/min (70-130); Calcium 8.8 mg/dL (7.8-10.44); Carbon Dioxide 25 mmol/L (23-31); Chloride 102 mmol/L (98-107); Estimated GFR-MDRD Greater than 90; Glucose 139 mg/dL (83-110); Potassium 4.3 mmol/L (3.5-5.1); Sodium 135 mmol/L (136-145)
--- NOTE | 2020-03-15 07:50 | RAD ---
XR Chest 1 View Portable History: Pneumonia Comparison: Radiograph prior day Findings: Endotracheal tube tip above the belen 1.8 cm. Small effusions. Peripheral airspace opaciti es are slightly improving. Enteric tube tip below diaphragm although out of field of view. Impression: Slight interval improvement lower lung aeration.
[2020-03-15] MEDS: Aspirin 81 mg Enteric Coated Tablet PO SCH (08:25)
[2020-03-15] MEDS: Haloperidol Lactate 5 MG/ML VIAL IM SCH ×3 (08:25→23:29)
[2020-03-15] MEDS: Enoxaparin Sodium 40 MG/0.4 ML SYRINGE SC SCH ×2 (08:25→20:07)
[2020-03-15] MEDS: Cyanocobalamin (Vitamin B-12) 1,000 MCG TAB PO SCH (08:25)
[2020-03-15] MEDS: Dexamethasone 4 mg/ml Vial SLOW IVP SCH (08:25)
[2020-03-15] MEDS: Ascorbic Acid 500 mg Chewable Tablet PO SCH (08:25)
[2020-03-15] MEDS: Folic Acid 1 MG TAB PO SCH (08:25)
[2020-03-15] MEDS: Multivit, Therapeutic 1 TAB PO SCH (08:25)
[2020-03-15] MEDS: Famotidine 20 MG TAB PER TUBE SCH ×2 (08:25→20:06)
--- NOTE | 2020-03-15 10:26 | PRG ---
DATE OF SERVICE: 03/15/2020 SUBJECTIVE: Adiel Posada continues to improve. She can be down to 5 of pressure support, 5 of PEEP, and she appears comfortable. OBJECTIVE: VITAL SIGNS: FiO2 is at 40%, blood pressure 107/74, and heart rate is in the 60s. LUNGS: Distant. HEART: Regular rhythm. ABDOMEN: Soft. LABORATORY DATA: White count 13.5, hemoglobin 11.6, and platelets 285. Sodium 135, potassium 4.3, chloride 102, bicarb 25, BUN 30, and creatinine 0.62. IMPRESSION AND PLAN: 1. Improving gas exchange with COVID pneumonia. 2. Diabetes. 3. Acute on chronic kidney disease. 4. Weakness and deconditioning. 5. Encephalopathy that is improved significantly with Haldol. She still has significant bibasilar infiltrates. Probably would feel better weaning and extubating her. She does well all day and overnight on 5 of pressure support and 5 of PEEP. This would suggest we could support her either with high-flow BiPAP once she is weaned and extubated. She does appear to be improving; however. Job ID: [id number]
--- NOTE | 2020-03-15 15:00 | PDOC.HOSPP ---
- Subjective Encounter Date: 03/15/20 Encounter Time: 09:40 Subjective: She is still on vent. Seems to be improving respiratory delvalle. - Objective Vital Signs & Weight: Vital Signs (12 hours) Pulse Resp Pulse Ox 03/15/20 14:14 68 03/15/20 12:00 15 03/15/20 10:36 71 03/15/20 10:00 18 03/15/20 08:00 18 03/15/20 07:34 99 03/15/20 06:37 61 03/15/20 06:00 9 L 03/15/20 04:00 16 Weight Admit Weight 106 lb 3.2 oz Weight 111 lb 1.808 oz Most Recent Monitor Data Heart Rate from ECG 74 NIBP 153/86 NIBP BP-Mean 108 Respiration from ECG 15 SpO2 100 I&O: 03/14/20 03/15/20 03/16/20 06:59 06:59 06:59 Intake Total 1364.6 1253.2 100 Output Total 3 2605 820 Balance -660.4 -1351.8 -720 Result Diagrams: 03/15/20 03:15 03/15/20 03:15 Hospitalist ROS - Medication Medications: Active Medications Generic Name Dose Route Start Last Admin Trade Name Freq PRN Reason Stop Dose Admin Acetaminophen 650 mg 03/02/20 20:10 03/04/20 23:50 Acetaminophen 325 Mg Tab PO 650 mg Q4H PRN Administration Headache/Fever/Mild Pain (1-3) Ascorbic Acid 1,000 mg 03/03/20 09:00 03/15/20 08:25 Ascorbic Acid 500 Mg Chewable Tablet PO 1,000 mg DAILY CONSTANCE Administration Aspirin 81 mg 03/14/20 09:00 03/15/20 08:25 Aspirin 81 Mg Enteric Coated Tablet PO 81 mg DAILY CONSTANCE Administration Cyanocobalamin 1,000 mcg 03/04/20 09:00 03/15/20 08:25 Cyanocobalamin (Vitamin B-12) 1,000 Mcg Tab PO 1,000 mcg DAILY CONSTANCE Administration Dexamethasone 6 mg 03/03/20 09:00 03/15/20 08:25 Dexamethasone 4 Mg/Ml Vial SLOW IVP 6 mg DAILY CONSTANCE Administration Enoxaparin Sodium 40 mg 03/13/20 21:00 03/15/20 08:25 Enoxaparin Sodium 40 Mg/0.4 Ml Syringe SC 40 mg 0900,2100 CONSTANCE Administration Famotidine 20 mg 03/07/20 09:00 03/15/20 08:25 Famotidine 20 Mg Tab PER TUBE 20 mg Q12HR CONSTANCE Administration Folic Acid 1 mg 03/04/20 09:00 03/15/20 08:25 Folic Acid 1 Mg Tab PO 1 mg DAILY CONSTANCE Administration Haloperidol Lactate 5 mg 03/14/20 23:59 03/15/20 08:25 Haloperidol Lactate 5 Mg/Ml Vial IM 5 mg 0800,1600,2359 CONSTANCE Administration Dexmedetomidine HCl 400 mcg/ 100 mls @ 0 mls/hr 03/08/20 09:30 03/15/20 03:47 Sodium Chloride IVPB 100 mls INF CONSTANCE Administration Protocol Per Protocol Multivitamins 1 tab 03/04/20 09:00 03/15/20 08:25 Multivit, Therapeutic 1 Tab PO 1 tab DAILY CONSTANCE Administration Propofol 1,000 mg 03/05/20 07:30 03/08/20 08:20 Propofol 1,000 Mg/100 Ml Vial IV 04/04/20 07:30 1,000 mg INF PRN Administration TO ACHIEVE GOAL RASS Protocol Sodium Chloride 10 ml 03/03/20 00:45 03/13/20 08:11 Flush - Normal Saline 10 Ml Syringe IVF 10 ml PRN PRN Administration Saline Flush Zinc Sulfate 220 mg 03/03/20 21:00 03/14/20 19:53 Zinc Sulfate 220 Mg Cap PO 220 mg HS CONSTANCE Administration - Exam General - other findings: On vent Hosp A/P - Plan (1) Acute respiratory failure with hypoxemia Code(s): J96.01 - ACUTE RESPIRATORY FAILURE WITH HYPOXIA Status: Acute (2) COVID-19 Code(s): U07.1 - COVID-19 Status: Acute (3) HTN (hypertension) Code(s): I10 - ESSENTIAL (PRIMARY) HYPERTENSION Status: Acute Qualifiers: Hypertension type: essential hypertension Qualified Code(s): I10 - Essential (primary) hypertension (4) Hyperthyroidism Code(s): E05.90 - THYROTOXICOSIS, UNSP WITHOUT THYROTOXIC CRISIS OR STORM Status: Acute (5) Metabolic encephalopathy Code(s): G93.41 - METABOLIC ENCEPHALOPATHY Status: Acute (6) Pneumonia Code(s): J18.9 - PNEUMONIA, UNSPECIFIED ORGANISM Status: Acute (7) Sepsis Code(s): A41.9 - SEPSIS, UNSPECIFIED ORGANISM Status: Acute (8) Hypothyroidism Code(s): E03.9 - HYPOTHYROIDISM, UNSPECIFIED Status: Chronic Qualifiers: Hypothyroidism type: unspecified Qualified Code(s): E03.9 - Hypothyroidism, unspecified Continue vent management per pulmonology. Leukocytosis secondary to pneumonia. White count is trending down. Will check his inflammatory markers. Follow closely with pulmonary And appreciate their help.
[2020-03-15] MEDS: Zinc Sulfate 220 MG CAP PO SCH (20:07)
[2020-03-16 04:21] LABS: #Basophils 0.1 thou/uL (0.0-0.2); #Eosinphils 0.1 thou/uL (0.0-0.7); #Lymphocytes 2.1 thou/uL (1.20-3.40); #Monocytes 1.5 thou/uL (0.11-0.59); #Neutrophils 12.9 thou/uL (1.40-6.50); %Basophils 0.7 % (0.0-1.0); %Eosinophils 0.3 % (0.0-10.0); %Lymphocytes 12.3 % (21.0-51.0); %Monocytes 8.9 % (0.0-10.0); %Neutrophils 77.8 % (42.0-75.0); Hemoglobin 12.3 g/dL (12.0-16.0); Mean Corpuscular HGB CONC 34.4 g/dL (32.0-36.0); Mean Corpuscular Hemoglobin 32.1 pg (27.0-31.0); Mean Corpuscular Volume 93.4 fL (78.0-98.0); Platelet Count 322 thou/uL (130-400); RBC Distribution Width 12.7 % (11.5-14.5); Red Blood Cell (RBC) Count 3.85 mill/uL (4.20-5.40); White Blood Cell (WBC) Count 16.6 thou/uL (4.8-10.8)
[2020-03-16 04:43] LABS: Anion Gap 14 mmol/L (10-20); BUN (Urea Nitrogen) 32 mg/dL (9.8-20.1); CRP (Inflammatory) 1.27 mg/dL (= or < 0.5); Calc. Creatinine Clearance 55 mL/min (70-130); Calcium 9.5 mg/dL (7.8-10.44); Carbon Dioxide 27 mmol/L (23-31); Chloride 100 mmol/L (98-107); Estimated GFR-MDRD 83; Glucose 133 mg/dL (83-110); Potassium 4.3 mmol/L (3.5-5.1); Sodium 137 mmol/L (136-145)
[2020-03-16] MEDS: Dexamethasone 4 mg/ml Vial SLOW IVP SCH (08:06)
[2020-03-16] MEDS: Ascorbic Acid 500 mg Chewable Tablet PO SCH (08:06)
[2020-03-16] MEDS: Famotidine 20 MG TAB PER TUBE SCH ×2 (08:06→19:32)
[2020-03-16] MEDS: Multivit, Therapeutic 1 TAB PO SCH (08:06)
[2020-03-16] MEDS: Aspirin 81 mg Enteric Coated Tablet PO SCH (08:06)
[2020-03-16] MEDS: Enoxaparin Sodium 40 MG/0.4 ML SYRINGE SC SCH ×2 (08:06→19:32)
[2020-03-16] MEDS: Folic Acid 1 MG TAB PO SCH (08:06)
[2020-03-16] MEDS: Cyanocobalamin (Vitamin B-12) 1,000 MCG TAB PO SCH (08:06)
[2020-03-16] MEDS: Haloperidol Lactate 5 MG/ML VIAL IM SCH ×3 (08:07→23:00)
--- NOTE | 2020-03-16 10:10 | RAD ---
PORTABLE CHEST: 03/16/20 PROVIDED CLINICAL HISTORY: Respiratory insufficiency. COMPARISON: 03/15/2020 FINDINGS: Significant interval change with respect to the prior examination is not apparent. IMPRESSION: As above. POS: MINDY
--- NOTE | 2020-03-16 13:40 | PDOC.HOSPP ---
- Subjective Encounter Date: 03/16/20 Encounter Time: 11:50 Subjective: Patient got extubated this morning around 8 AM. He is still lethargic. He has OGT tube for nutrition so far. His urine output seems to be good today. Yesterday however he was little on the high side almost 150 mL an hour for several hours. - Objective Vital Signs & Weight: Vital Signs (12 hours) Pulse Resp Pulse Ox 03/16/20 08:15 100 03/16/20 07:15 84 03/16/20 06:00 23 H 03/16/20 04:00 19 03/16/20 03:01 77 03/16/20 02:00 23 H Weight Admit Weight 106 lb 3.2 oz Weight 110 lb 7.225 oz Most Recent Monitor Data Heart Rate from ECG 96 NIBP 158/84 NIBP BP-Mean 108 Respiration from ECG 20 SpO2 98 I&O: 03/15/20 03/16/20 03/17/20 06:59 06:59 05:59 Intake Total 1253.2 524.0 165.1 Output Total 2605 1820 360 Balance -1351.8 -1296.0 -194.9 Result Diagrams: 03/16/20 03:52 03/16/20 03:52 Additional Labs: Accuchecks 03/14/20 20:46 POC Glucose 169 H Hospitalist ROS - Medication Medications: Active Medications Generic Name Dose Route Start Last Admin Trade Name Freq PRN Reason Stop Dose Admin Acetaminophen 650 mg 03/02/20 20:10 03/04/20 23:50 Acetaminophen 325 Mg Tab PO 650 mg Q4H PRN Administration Headache/Fever/Mild Pain (1-3) Ascorbic Acid 1,000 mg 03/03/20 09:00 03/16/20 08:06 Ascorbic Acid 500 Mg Chewable Tablet PO 1,000 mg DAILY CONSTANCE Administration Aspirin 81 mg 03/14/20 09:00 03/16/20 08:06 Aspirin 81 Mg Enteric Coated Tablet PO 81 mg DAILY CONSTANCE Administration Cyanocobalamin 1,000 mcg 03/04/20 09:00 03/16/20 08:06 Cyanocobalamin (Vitamin B-12) 1,000 Mcg Tab PO 1,000 mcg DAILY CONSTANCE Administration Dexamethasone 6 mg 03/03/20 09:00 03/16/20 08:06 Dexamethasone 4 Mg/Ml Vial SLOW IVP 6 mg DAILY CONSTANCE Administration Enoxaparin Sodium 40 mg 03/13/20 21:00 03/16/20 08:06 Enoxaparin Sodium 40 Mg/0.4 Ml Syringe SC 40 mg 0900,2100 CONSTANCE Administration Famotidine 20 mg 03/07/20 09:00 03/16/20 08:06 Famotidine 20 Mg Tab PER TUBE 20 mg Q12HR CONSTANCE Administration Folic Acid 1 mg 03/04/20 09:00 03/16/20 08:06 Folic Acid 1 Mg Tab PO 1 mg DAILY CONSTANCE Administration Haloperidol Lactate 5 mg 03/14/20 23:59 03/16/20 08:07 Haloperidol Lactate 5 Mg/Ml Vial IM 5 mg 0800,1600,2359 CONSTANCE Administration Dexmedetomidine HCl 400 mcg/ 100 mls @ 0 mls/hr 03/08/20 09:30 03/15/20 23:28 Sodium Chloride IVPB 100 mls INF CONSTANCE Administration Protocol Per Protocol Multivitamins 1 tab 03/04/20 09:00 03/16/20 08:06 Multivit, Therapeutic 1 Tab PO 1 tab DAILY CONSTANCE Administration Propofol 1,000 mg 03/05/20 07:30 03/08/20 08:20 Propofol 1,000 Mg/100 Ml Vial IV 04/04/20 07:30 1,000 mg INF PRN Administration TO ACHIEVE GOAL RASS Protocol Sodium Chloride 10 ml 03/03/20 00:45 03/13/20 08:11 Flush - Normal Saline 10 Ml Syringe IVF 10 ml PRN PRN Administration Saline Flush Zinc Sulfate 220 mg 03/03/20 21:00 03/15/20 20:07 Zinc Sulfate 220 Mg Cap PO 220 mg HS CONSTANCE Administration - Exam General Appearance: ill appearing General - other findings: Status post extubation ENT: normocephalic atraumatic Neck: supple Hosp A/P - Plan (1) Acute respiratory failure with hypoxemia Code(s): J96.01 - ACUTE RESPIRATORY FAILURE WITH HYPOXIA Status: Acute (2) COVID-19 Code(s): U07.1 - COVID-19 Status: Acute (3) HTN (hypertension) Code(s): I10 - ESSENTIAL (PRIMARY) HYPERTENSION Status: Acute Qualifiers: Hypertension type: essential hypertension Qualified Code(s): I10 - Essential (primary) hypertension (4) Hyperthyroidism Code(s): E05.90 - THYROTOXICOSIS, UNSP WITHOUT THYROTOXIC CRISIS OR STORM Status: Acute (5) Metabolic encephalopathy Code(s): G93.41 - METABOLIC ENCEPHALOPATHY Status: Acute (6) Pneumonia Code(s): J18.9 - PNEUMONIA, UNSPECIFIED ORGANISM Status: Acute (7) Sepsis Code(s): A41.9 - SEPSIS, UNSPECIFIED ORGANISM Status: Acute (8) Hypothyroidism Code(s): E03.9 - HYPOTHYROIDISM, UNSPECIFIED Status: Chronic Qualifiers: Hypothyroidism type: unspecified Qualified Code(s): E03.9 - Hypothyroidism, unspecified Continue vent management per pulmonology. Leukocytosis secondary to pneumonia. White count is trending down. Will check his inflammatory markers. Follow closely with pulmonary And appreciate their help. Inflammatory markers are trending down. Electrolytes in the normal range Blood glucose range also acceptable anywhere between 1 80-1 33.
--- NOTE | 2020-03-16 15:32 | PRG ---
DATE OF SERVICE: 03/16/2020 SUBJECTIVE: Ms. Posada has done well on BiPAP for the past 24 hours and was extubated earlier this morning. She has done well since that time and is now on supplemental nasal oxygen. PHYSICAL EXAMINATION: VITAL SIGNS: Blood pressure is 127/93, heart rate is 128, respiratory rate 21, saturation 96, temperature 99. GENERAL: She is not in distress. She does complain of a little sore throat. NECK: She has no adenopathy. LUNGS: Show rhonchi, but no wheezing. HEART: Regular rate and rhythm. ABDOMEN: Soft. EXTREMITIES: She has no edema. There is no cords or tenderness. LABORATORY DATA: White count 16,600, hemoglobin is 12.3 with hematocrit 35.9, and platelet count of 322,000. Chemistry panel includes sodium 137, potassium 4.3, chloride 100, CO2 is 27, BUN 33, creatinine 0.7. IMPRESSION: COVID pneumonia, clinically improved to the point that she was extubated earlier today. PLAN: We will continue support including supplemental oxygen and begin post extubation recovery maneuvers. Critical care 31 minutes. Job ID: [id number]
[2020-03-16] MEDS: Zinc Sulfate 220 MG CAP PO SCH (19:32)
[2020-03-17 04:01] LABS: #Basophils 0.1 thou/uL (0.0-0.2); #Eosinphils 0.1 thou/uL (0.0-0.7); #Lymphocytes 2.2 thou/uL (1.20-3.40); #Monocytes 1.3 thou/uL (0.11-0.59); #Neutrophils 12.3 thou/uL (1.40-6.50); %Basophils 0.4 % (0.0-1.0); %Eosinophils 0.4 % (0.0-10.0); %Neutrophils 77.2 % (42.0-75.0); Hemoglobin 10.2 g/dL (12.0-16.0); Mean Corpuscular HGB CONC 34.7 g/dL (32.0-36.0); Mean Corpuscular Hemoglobin 32.1 pg (27.0-31.0); Mean Corpuscular Volume 92.5 fL (78.0-98.0); Mean Platelet Volume 8.8 fL (7.4-10.4); Platelet Count 344 thou/uL (130-400); RBC Distribution Width 12.8 % (11.5-14.5); Red Blood Cell (RBC) Count 3.19 mill/uL (4.20-5.40); White Blood Cell (WBC) Count 15.9 thou/uL (4.8-10.8)
[2020-03-17 04:22] LABS: Anion Gap 15 mmol/L (10-20); BUN (Urea Nitrogen) 31 mg/dL (9.8-20.1); Calc. Creatinine Clearance 50 mL/min (70-130); Calcium 8.9 mg/dL (7.8-10.44); Carbon Dioxide 26 mmol/L (23-31); Chloride 103 mmol/L (98-107); Estimated GFR-MDRD 75; Glucose 96 mg/dL (83-110); Potassium 3.9 mmol/L (3.5-5.1); Sodium 140 mmol/L (136-145)
[2020-03-17] MEDS: Multivit, Therapeutic 1 TAB PO SCH (08:53)
[2020-03-17] MEDS: Folic Acid 1 MG TAB PO SCH (08:53)
[2020-03-17] MEDS: Cyanocobalamin (Vitamin B-12) 1,000 MCG TAB PO SCH (08:53)
[2020-03-17] MEDS: Haloperidol Lactate 5 MG/ML VIAL IM SCH ×2 (08:53→17:10)
[2020-03-17] MEDS: Ascorbic Acid 500 mg Chewable Tablet PO SCH (08:53)
[2020-03-17] MEDS: Aspirin 81 mg Enteric Coated Tablet PO SCH (08:53)
[2020-03-17] MEDS: Dexamethasone 4 mg/ml Vial SLOW IVP SCH (08:53)
[2020-03-17] MEDS: Enoxaparin Sodium 40 MG/0.4 ML SYRINGE SC SCH ×2 (08:54→20:49)
[2020-03-17] MEDS: Famotidine 20 MG TAB PER TUBE SCH ×2 (08:54→20:50)
--- NOTE | 2020-03-17 10:24 | RAD ---
PORTABLE CHEST: 03/17/20 PROVIDED CLINICAL HISTORY: Respiratory insufficiency. COMPARISON: 03/16/2020 FINDINGS: Interval extubation and removal of enteric catheter. Additional significant interval change with resp ect to the prior examination is not apparent. IMPRESSION: As above. POS: MINDY
--- NOTE | 2020-03-17 11:04 | PRG ---
DATE OF SERVICE: 03/17/2020 HISTORY: Ms. Posada continues to do well following extubation yesterday. She was seen by speech therapy today and took pills adequately and is deemed appropriate for advancing diet. PHYSICAL EXAMINATION: VITAL SIGNS: Blood pressure 106/63, heart rate is 70, respiratory rate 18, oxygen saturation 99% on 2 L. GENERAL: She is still a little adult following extubation, but answers questions appropriately. HEENT: Shows no JVD. LUNGS: Coarse rhonchi. HEART: Regular rate and rhythm without murmur. ABDOMEN: Soft. EXTREMITIES: She has no edema. There is no cords or tenderness. LABORATORY DATA: White count 15,900 with hemoglobin of 10.2, hematocrit 29.5, and platelet count of 344,000. Chemistry includes sodium 140, potassium 3.9, chloride 103, CO2 is 26, BUN 31, creatinine 0.7. Chest x-ray today shows persistence of consolidation not appreciably different than on prior days, but dramatically improved when compared to older x-rays of 10 days ago. IMPRESSION: Coronavirus disease pneumonia, extubated. PLAN: We will continue current therapies. Oxygenation is dramatically better. We are advancing her diet. She could probably be transferred to the medical floor if beds were available. Job ID: [id number]
--- NOTE | 2020-03-17 14:41 | PDOC.HOSPP ---
- Subjective Encounter Date: 03/17/20 Encounter Time: 11:55 Subjective: Patient looks good. No acute events noted overnight. He is stable to be transferred to the telemetry floor. - Objective Vital Signs & Weight: Vital Signs (12 hours) Temp Pulse Ox 03/17/20 09:00 98.7 F 03/17/20 08:45 96 Weight Admit Weight 106 lb 3.2 oz Weight 110 lb 3.698 oz Most Recent Monitor Data Heart Rate from ECG 75 NIBP 134/88 NIBP BP-Mean 103 Respiration from ECG 17 SpO2 98 I&O: 03/16/20 03/17/20 03/18/20 07:59 06:59 06:59 Intake Total 220 Output Total 270 Balance -50 Result Diagrams: 03/17/20 03:40 03/17/20 03:40 Hospitalist ROS - Medication Medications: Active Medications Generic Name Dose Route Start Last Admin Trade Name Freq PRN Reason Stop Dose Admin Acetaminophen 650 mg 03/02/20 20:10 03/04/20 23:50 Acetaminophen 325 Mg Tab PO 650 mg Q4H PRN Administration Headache/Fever/Mild Pain (1-3) Ascorbic Acid 1,000 mg 03/03/20 09:00 03/17/20 08:53 Ascorbic Acid 500 Mg Chewable Tablet PO 1,000 mg DAILY CONSTANCE Administration Aspirin 81 mg 03/14/20 09:00 03/17/20 08:53 Aspirin 81 Mg Enteric Coated Tablet PO 81 mg DAILY CONSTANCE Administration Cyanocobalamin 1,000 mcg 03/04/20 09:00 03/17/20 08:53 Cyanocobalamin (Vitamin B-12) 1,000 Mcg Tab PO 1,000 mcg DAILY CONSTANCE Administration Dexamethasone 6 mg 03/03/20 09:00 03/17/20 08:53 Dexamethasone 4 Mg/Ml Vial SLOW IVP 6 mg DAILY CONSTANCE Administration Enoxaparin Sodium 40 mg 03/13/20 21:00 03/17/20 08:54 Enoxaparin Sodium 40 Mg/0.4 Ml Syringe SC 40 mg 09,2099 CONSTANCE Administration Famotidine 20 mg 03/07/20 09:00 03/17/20 08:54 Famotidine 20 Mg Tab PER TUBE 20 mg Q12HR CONSTANCE Administration Folic Acid 1 mg 03/04/20 09:00 03/17/20 08:53 Folic Acid 1 Mg Tab PO 1 mg DAILY CONSTANCE Administration Haloperidol Lactate 5 mg 03/14/20 23:59 03/17/20 08:53 Haloperidol Lactate 5 Mg/Ml Vial IM 5 mg 0800,1600,2359 CONSTANCE Administration Dexmedetomidine HCl 400 mcg/ 100 mls @ 0 mls/hr 03/08/20 09:30 03/17/20 00:44 Sodium Chloride IVPB 100 mls INF CONSTANCE Administration Protocol Per Protocol Multivitamins 1 tab 03/04/20 09:00 03/17/20 08:53 Multivit, Therapeutic 1 Tab PO 1 tab DAILY CONSTANCE Administration Propofol 1,000 mg 03/05/20 07:30 03/08/20 08:20 Propofol 1,000 Mg/100 Ml Vial IV 04/04/20 07:30 1,000 mg INF PRN Administration TO ACHIEVE GOAL RASS Protocol Sodium Chloride 10 ml 03/03/20 00:45 03/13/20 08:11 Flush - Normal Saline 10 Ml Syringe IVF 10 ml PRN PRN Administration Saline Flush Zinc Sulfate 220 mg 03/03/20 21:00 03/16/20 19:32 Zinc Sulfate 220 Mg Cap PO 220 mg HS CONSTANCE Administration - Exam General Appearance: NAD, awake alert Eye: PERRL ENT: normocephalic atraumatic Neck: supple Respiratory: normal chest expansion Neurological: no focal deficits Psychiatric: A&O x 3 Hosp A/P - Plan (1) Acute respiratory failure with hypoxemia Code(s): J96.01 - ACUTE RESPIRATORY FAILURE WITH HYPOXIA Status: Acute (2) COVID-19 Code(s): U07.1 - COVID-19 Status: Acute (3) HTN (hypertension) Code(s): I10 - ESSENTIAL (PRIMARY) HYPERTENSION Status: Acute Qualifiers: Hypertension type: essential hypertension Qualified Code(s): I10 - Essential (primary) hypertension (4) Hyperthyroidism Code(s): E05.90 - THYROTOXICOSIS, UNSP WITHOUT THYROTOXIC CRISIS OR STORM Status: Acute (5) Metabolic encephalopathy Code(s): G93.41 - METABOLIC ENCEPHALOPATHY Status: Acute (6) Pneumonia Code(s): J18.9 - PNEUMONIA, UNSPECIFIED ORGANISM Status: Acute (7) Sepsis Code(s): A41.9 - SEPSIS, UNSPECIFIED ORGANISM Status: Acute (8) Hypothyroidism Code(s): E03.9 - HYPOTHYROIDISM, UNSPECIFIED Status: Chronic Qualifiers: Hypothyroidism type: unspecified Qualified Code(s): E03.9 - Hypothyroidism, unspecified Continue vent management per pulmonology. Leukocytosis secondary to pneumonia. White count is trending down. Will check his inflammatory markers. Status post extubation on March 16 Follow closely with pulmonary And appreciate their help. Inflammatory markers are trending down. Electrolytes in the normal range Blood glucose range also acceptable anywhere between 1 80-1 33. Okay to transfer to telemetry floor.
--- NOTE | 2020-03-17 19:53 | RAD ---
RIGHT SHOULDER RADIOGRAPHS: Date: 03-17-2020 PROVIDED CLINICAL HISTORY: Swelling and bruising FINDINGS: Acromioclavicular joint osteoarthrosis is demonstrated. There is no evidence for fracture or other [place] osseous abnormality. Subacromial space appears preserved. Glenohumeral alignment appears normal. Parenchymal opacity involving the right lung similar to prior chest radiographs. IMPRESSION: No evidence for an acute osseous abnormality or significant arthropathy. POS: MINDY
[2020-03-17] MEDS ORDERED: Lorazepam 2 MG/ML VIAL SLOW IVP SCH (20:15)
[2020-03-17] MEDS: Zinc Sulfate 220 MG CAP PO SCH (21:10)
[2020-03-18] MEDS: Haloperidol Lactate 5 MG/ML VIAL IM SCH ×2 (00:14→09:23)
[2020-03-18] MEDS ORDERED: Sodium Chloride 0.9% 250 ML IV SCH (06:00)
[2020-03-18 06:39] LABS: ALT (SGPT) 43 U/L (8-55); AST (SGOT) 36 U/L (5-34); Albumin 3.4 g/dL (3.4-4.8); Alkaline Phosphatase 61 U/L (40-110); Anion Gap 18 mmol/L (10-20); BUN (Urea Nitrogen) 48 mg/dL (9.8-20.1); Bilirubin, Direct 0.3 mg/dL (0.1-0.3); Bilirubin, Total 0.8 mg/dL (0.2-1.2); CRP (Inflammatory) 2.01 mg/dL (= or < 0.5); Calc. Creatinine Clearance 34 mL/min (70-130); Calcium 8.9 mg/dL (7.8-10.44); Carbon Dioxide 21 mmol/L (23-31); Chloride 104 mmol/L (98-107); Estimated GFR-MDRD 48; Glucose 168 mg/dL (83-110); Potassium 4.1 mmol/L (3.5-5.1); Protein, Total 6.2 g/dL (6.0-8.3); Sodium 139 mmol/L (136-145)
[2020-03-18 06:40] LABS: Band 7 % (5-11); Hemoglobin 9.6 g/dL (12.0-16.0); Lymphocytes 12 % (21-51); MDiff Complete? YES; Mean Corpuscular HGB CONC 35.2 g/dL (32.0-36.0); Mean Corpuscular Volume 93.7 fL (78.0-98.0); Mean Platelet Volume 8.9 fL (7.4-10.4); Metamyelocyte 1 % (0-0); Monocytes 5 % (0-10); Neutrophil 75 % (42-75); Platelet Count 230 thou/uL (130-400); Platelet Morphology Comment Appears Adequate; Red Blood Cell (RBC) Count 2.91 mill/uL (4.20-5.40); White Blood Cell (WBC) Count 23.9 thou/uL (4.8-10.8)
--- NOTE | 2020-03-18 08:03 | RAD ---
CHEST 1 VIEW PORTABLE: Date: 03/18/2020 HISTORY: COVID pneumonia, intubation, respiratory insufficiency. COMPARISON: 03/17/2020. FINDINGS: Stable patchy alveolar and interstitial and ground-glass opacity changes noted, particularly in the m id and lower lung zones peripherally. Evidence for bilateral COVID pneumonia, with little change, pos sibly very slight improvement from prior exams. No significant new process. IMPRESSION: Overall stable parenchymal changes. Evidence for COVID pneumonia. Continue short-term follow-up. POS: RRE
[2020-03-18] MEDS: Folic Acid 1 MG TAB PO SCH (09:22)
[2020-03-18] MEDS: Famotidine 20 MG TAB PER TUBE SCH (09:22)
[2020-03-18] MEDS: Multivit, Therapeutic 1 TAB PO SCH (09:22)
[2020-03-18] MEDS: Ascorbic Acid 500 mg Chewable Tablet PO SCH (09:22)
[2020-03-18] MEDS: Aspirin 81 mg Enteric Coated Tablet PO SCH (09:22)
[2020-03-18] MEDS: Enoxaparin Sodium 40 MG/0.4 ML SYRINGE SC SCH ×2 (09:22→20:20)
[2020-03-18] MEDS: Cyanocobalamin (Vitamin B-12) 1,000 MCG TAB PO SCH (09:23)
[2020-03-18] MEDS: Dexamethasone 4 mg/ml Vial SLOW IVP SCH (09:24)
[2020-03-18] MEDS ORDERED: Haloperidol Lactate 5 MG/ML VIAL IM PRN (10:48)
[2020-03-18 14:24] VITALS: BMI 19.5
--- NOTE | 2020-03-18 14:48 | PDOC.HOSPP ---
- Subjective Encounter Date: 03/18/20 Encounter Time: 09:10 Subjective: Patient is still confused. Her white count is jumped and. She has right upper arm ecchymosis. X-ray did not show any abnormality other than osteoarthritis. Repeat chest x-ray today showed stable parenchymal changes consistent with Covid pneumonia. - Objective Vital Signs & Weight: Vital Signs (12 hours) Temp Pulse Resp BP Pulse Ox 03/18/20 13:07 98.9 F 78 18 155/92 H 100 03/18/20 04:45 98.4 F 99 18 138/76 99 Weight Admit Weight 106 lb 3.2 oz Weight 110 lb 3.698 oz Most Recent Monitor Data Heart Rate from ECG 89 NIBP 135/67 NIBP BP-Mean 89 Respiration from ECG 31 SpO2 91 I&O: 03/17/20 03/18/20 03/19/20 06:59 06:59 06:59 Intake Total 360 Output Total 270 Balance 90 Result Diagrams: 03/18/20 06:00 03/18/20 06:00 Hospitalist ROS - Medication Medications: Active Medications Generic Name Dose Route Start Last Admin Trade Name Freq PRN Reason Stop Dose Admin Acetaminophen 650 mg 03/02/20 20:10 03/04/20 23:50 Acetaminophen 325 Mg Tab PO 650 mg Q4H PRN Administration Headache/Fever/Mild Pain (1-3) Ascorbic Acid 1,000 mg 03/03/20 09:00 03/18/20 09:22 Ascorbic Acid 500 Mg Chewable Tablet PO 1,000 mg DAILY CONSTANCE Administration Aspirin 81 mg 03/14/20 09:00 03/18/20 09:22 Aspirin 81 Mg Enteric Coated Tablet PO 81 mg DAILY CONSTANCE Administration Cyanocobalamin 1,000 mcg 03/04/20 09:00 03/18/20 09:23 Cyanocobalamin (Vitamin B-12) 1,000 Mcg Tab PO 1,000 mcg DAILY CONSTANCE Administration Dexamethasone 6 mg 03/03/20 09:00 03/18/20 09:24 Dexamethasone 4 Mg/Ml Vial SLOW IVP 6 mg DAILY CONSTANCE Administration Enoxaparin Sodium 40 mg 03/13/20 21:00 03/18/20 09:22 Enoxaparin Sodium 40 Mg/0.4 Ml Syringe SC 40 mg 0900,2100 CONSTANCE Administration Folic Acid 1 mg 03/04/20 09:00 03/18/20 09:22 Folic Acid 1 Mg Tab PO 1 mg DAILY CONSTANCE Administration Dexmedetomidine HCl 400 mcg/ 100 mls @ 0 mls/hr 03/08/20 09:30 03/17/20 00:44 Sodium Chloride IVPB 100 mls INF CONSTANCE Administration Protocol Per Protocol Multivitamins 1 tab 03/04/20 09:00 03/18/20 09:22 Multivit, Therapeutic 1 Tab PO 1 tab DAILY CONSTANCE Administration Propofol 1,000 mg 03/05/20 07:30 03/08/20 08:20 Propofol 1,000 Mg/100 Ml Vial IV 04/04/20 07:30 1,000 mg INF PRN Administration TO ACHIEVE GOAL RASS Protocol Sodium Chloride 10 ml 03/03/20 00:45 03/13/20 08:11 Flush - Normal Saline 10 Ml Syringe IVF 10 ml PRN PRN Administration Saline Flush Zinc Sulfate 220 mg 03/03/20 21:00 03/17/20 21:10 Zinc Sulfate 220 Mg Cap PO 220 mg HS CONSTANCE Administration - Exam General Appearance: ill appearing General - other findings: Disoriented Eye: PERRL, anicteric sclera ENT: normocephalic atraumatic Neck: supple Psychiatric: not oriented Hosp A/P - Plan (1) Acute respiratory failure with hypoxemia Code(s): J96.01 - ACUTE RESPIRATORY FAILURE WITH HYPOXIA Status: Acute (2) COVID-19 Code(s): U07.1 - COVID-19 Status: Acute (3) HTN (hypertension) Code(s): I10 - ESSENTIAL (PRIMARY) HYPERTENSION Status: Acute Qualifiers: Hypertension type: essential hypertension Qualified Code(s): I10 - Essential (primary) hypertension (4) Hyperthyroidism Code(s): E05.90 - THYROTOXICOSIS, UNSP WITHOUT THYROTOXIC CRISIS OR STORM Status: Acute (5) Metabolic encephalopathy Code(s): G93.41 - METABOLIC ENCEPHALOPATHY Status: Acute (6) Pneumonia Code(s): J18.9 - PNEUMONIA, UNSPECIFIED ORGANISM Status: Acute (7) Sepsis Code(s): A41.9 - SEPSIS, UNSPECIFIED ORGANISM Status: Acute (8) Hypothyroidism Code(s): E03.9 - HYPOTHYROIDISM, UNSPECIFIED Status: Chronic Qualifiers: Hypothyroidism type: unspecified Qualified Code(s): E03.9 - Hypothyroidism, unspecified Continue vent management per pulmonology. Leukocytosis secondary to pneumonia. White count is trending down. Will check his inflammatory markers. Status post extubation on March 16 Follow closely with pulmonary And appreciate their help. Inflammatory markers are trending down. Electrolytes in the normal range Blood glucose range also acceptable anywhere between 1 80-1 33. Intermittent confusion -Mainly supportive measures Significant leukocytosis today -Chest x-ray with a stable Covid pneumonia -We will repeat the CBC to make sure not serious. -Could be steroid-induced demargination. -Will check the UA. -Empiric antibiotic given the significant elevated white count Right arm ecchymosis and swelling -Warm compression -Ultrasound to rule out superficial and the deep vein thrombosis. -
[2020-03-18] MEDS ORDERED: cefTRIAXone\\ROCEPHIN 1 GM in Sodium Chloride 0.9% 100 ML IVPB SCH (15:00)
--- NOTE | 2020-03-18 15:01 | ULT ---
ULTRASOUND DOPPLER DUPLEX VENOUS RIGHT UPPER EXTREMITY: DATE: 03/18/2020 HISTORY: 75-year-old female with bruising and swelling of right upper extremity TECHNIQUE: Grayscale, color-flow, and spectral analysis, of the right internal jugular, subclavian, axillary, br achial, basilic, cephalic, radial, and ulnar, veins. Compression and release applied to all veins except the subclavian. FINDINGS: In the forearm, the basilic vein is thrombosed and occluded. In the arm, the basilic vein is patent. In the arm, the cephalic vein is not visualized. In the antecubital fossa, and in the forearm, the cephalic vein is patent. The radial, ulnar, brachial, axillary, subclavian, and internal jugular, veins, are patent. There is soft tissue edema in the upper extremity, especially in the antecubital fossa and arm, and l ess so in the forearm. 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 2) significant soft tissue edema of the arm and antecubital fossa.
[2020-03-18 15:42] LABS: #Basophils 0.1 thou/uL (0.0-0.2); #Lymphocytes 1.1 thou/uL (1.20-3.40); #Monocytes 0.6 thou/uL (0.11-0.59); #Neutrophils 17.6 thou/uL (1.40-6.50); %Basophils 0.3 % (0.0-1.0); %Eosinophils 0.1 % (0.0-10.0); %Lymphocytes 5.7 % (21.0-51.0); %Neutrophils 90.9 % (42.0-75.0); Hemoglobin 8.6 g/dL (12.0-16.0); Mean Corpuscular HGB CONC 34.3 g/dL (32.0-36.0); Mean Corpuscular Hemoglobin 32.2 pg (27.0-31.0); Mean Corpuscular Volume 93.9 fL (78.0-98.0); Platelet Count 357 thou/uL (130-400); RBC Distribution Width 13.3 % (11.5-14.5); Red Blood Cell (RBC) Count 2.67 mill/uL (4.20-5.40); White Blood Cell (WBC) Count 19.4 thou/uL (4.8-10.8)
[2020-03-18 18:39] LABS: Bacteria/HPF 3+ HPF (None Seen); Bilirubin Negative (Negative); Blood, Urine Negative (Negative); Clarity Turbid (Clear); Glucose, Urine (Dipstick) Normal (Negative); Ketone, Urine 10 mg/dL (Negative); Leukocyte 250 Leu/uL (Negative); Nitrite 1+ (Negative); Protein, Urine (Dipstick) 20 mg/dL (Neg-Trace); Specific Gravity, Urine 1.023 (1.002-1.036); Squamous Epithelial 0-3 HPF (0-3); Urobilinogen Normal mg/dL (Less than 2); Yeast-Budding 2+ HPF (None Seen); pH, Urine 5.5 (5.0-9.0)
[2020-03-18 18:46] LABS: RBC/HPF 0-3 HPF (0-3)
[2020-03-18 18:48] LABS: Urine Culture Reflex Yes Yes
[2020-03-18] MEDS: Zinc Sulfate 220 MG CAP PO SCH (20:20)
[2020-03-19 05:32] LABS: #Lymphocytes 2.4 thou/uL (1.20-3.40); #Monocytes 1.4 thou/uL (0.11-0.59); #Neutrophils 13.7 thou/uL (1.40-6.50); %Basophils 0.1 % (0.0-1.0); %Eosinophils 0.1 % (0.0-10.0); %Lymphocytes 13.7 % (21.0-51.0); Hemoglobin 8.1 g/dL (12.0-16.0); Mean Corpuscular HGB CONC 34.3 g/dL (32.0-36.0); Mean Corpuscular Hemoglobin 32.3 pg (27.0-31.0); Mean Platelet Volume 8.9 fL (7.4-10.4); Platelet Count 338 thou/uL (130-400); RBC Distribution Width 13.6 % (11.5-14.5); White Blood Cell (WBC) Count 17.5 thou/uL (4.8-10.8)
[2020-03-19 05:53] LABS: Anion Gap 17 mmol/L (10-20); BUN (Urea Nitrogen) 47 mg/dL (9.8-20.1); Calc. Creatinine Clearance 47 mL/min (70-130); Calcium 8.6 mg/dL (7.8-10.44); Carbon Dioxide 21 mmol/L (23-31); Chloride 108 mmol/L (98-107); Estimated GFR-MDRD 70; Glucose 129 mg/dL (83-110); Sodium 142 mmol/L (136-145)
[2020-03-19 05:59] LABS: ALT (SGPT) 39 U/L (8-55); AST (SGOT) 29 U/L (5-34); Albumin 3.2 g/dL (3.4-4.8); Alkaline Phosphatase 57 U/L (40-110); Bilirubin, Direct 0.3 mg/dL (0.1-0.3); Bilirubin, Total 0.6 mg/dL (0.2-1.2); CRP (Inflammatory) 2.05 mg/dL (= or < 0.5)
[2020-03-19] MEDS: Aspirin 81 mg Enteric Coated Tablet PO SCH (08:39)
[2020-03-19] MEDS: Ascorbic Acid 500 mg Chewable Tablet PO SCH (08:39)
[2020-03-19] MEDS: Cyanocobalamin (Vitamin B-12) 1,000 MCG TAB PO SCH (08:39)
[2020-03-19] MEDS: Enoxaparin Sodium 40 MG/0.4 ML SYRINGE SC SCH (08:40)
[2020-03-19] MEDS: Multivit, Therapeutic 1 TAB PO SCH (08:40)
[2020-03-19] MEDS: Famotidine 20 MG TAB PO SCH (08:40)
[2020-03-19] MEDS: Dexamethasone 4 mg/ml Vial SLOW IVP SCH (08:40)
[2020-03-19] MEDS: Folic Acid 1 MG TAB PO SCH (08:40)
--- NOTE | 2020-03-19 12:38 | PDOC.HOSPP ---
- Subjective Encounter Date: 03/19/20 Encounter Time: 10:12 Subjective: Patient remains same Some disorientation. She is satting almost 100% with a 2 L oxygen by nasal cannula.1234 - Objective Vital Signs & Weight: Vital Signs (12 hours) Temp Pulse Resp BP Pulse Ox 03/19/20 09:11 97.4 F L 92 20 145/76 H 100 03/19/20 08:00 100 03/19/20 04:40 97.5 F L 96 20 168/82 H 97 Weight Admit Weight 106 lb 3.2 oz Weight 110 lb 3.698 oz Most Recent Monitor Data Heart Rate from ECG 89 NIBP 135/67 NIBP BP-Mean 89 Respiration from ECG 31 SpO2 91 I&O: 03/18/20 03/19/20 03/20/20 06:59 06:59 06:59 Intake Total 360 Output Total 270 500 Balance 90 -500 Result Diagrams: 03/19/20 05:16 03/19/20 05:16 Additional Labs: Accuchecks 03/14/20 20:46 POC Glucose Cancelled Hospitalist ROS - Medication Medications: Active Medications Generic Name Dose Route Start Last Admin Trade Name Freq PRN Reason Stop Dose Admin Acetaminophen 650 mg 03/02/20 20:10 03/04/20 23:50 Acetaminophen 325 Mg Tab PO 650 mg Q4H PRN Administration Headache/Fever/Mild Pain (1-3) Ascorbic Acid 1,000 mg 03/03/20 09:00 03/19/20 08:39 Ascorbic Acid 500 Mg Chewable Tablet PO 1,000 mg DAILY CONSTANCE Administration Cyanocobalamin 1,000 mcg 03/04/20 09:00 03/19/20 08:39 Cyanocobalamin (Vitamin B-12) 1,000 Mcg Tab PO 1,000 mcg DAILY CONSTANCE Administration Dexamethasone 6 mg 03/03/20 09:00 03/19/20 08:40 Dexamethasone 4 Mg/Ml Vial SLOW IVP 6 mg DAILY CONSTANCE Administration Famotidine 20 mg 03/19/20 09:00 03/19/20 08:40 Famotidine 20 Mg Tab PO 20 mg DAILY CONSTANCE Administration Folic Acid 1 mg 03/04/20 09:00 03/19/20 08:40 Folic Acid 1 Mg Tab PO 1 mg DAILY CONSTANCE Administration Ceftriaxone Sodium 1 gm/ 100 mls @ 200 mls/hr 03/18/20 15:00 03/18/20 16:39 Sodium Chloride IVPB 100 mls 1500 CONSTANCE Administration Multivitamins 1 tab 03/04/20 09:00 03/19/20 08:40 Multivit, Therapeutic 1 Tab PO 1 tab DAILY CONSTANCE Administration Sodium Chloride 10 ml 03/03/20 00:45 03/13/20 08:11 Flush - Normal Saline 10 Ml Syringe IVF 10 ml PRN PRN Administration Saline Flush Zinc Sulfate 220 mg 03/03/20 21:00 03/18/20 20:20 Zinc Sulfate 220 Mg Cap PO 220 mg HS CONSTANCE Administration - Exam General Appearance: ill appearing General - other findings: Not oriented Eye: PERRL ENT: normocephalic atraumatic Neck: supple Heart: RRR Respiratory: CTAB Gastrointestinal: soft Psychiatric: not oriented Hosp A/P - Plan (1) Acute respiratory failure with hypoxemia Code(s): J96.01 - ACUTE RESPIRATORY FAILURE WITH HYPOXIA Status: Acute (2) COVID-19 Code(s): U07.1 - COVID-19 Status: Acute (3) HTN (hypertension) Code(s): I10 - ESSENTIAL (PRIMARY) HYPERTENSION Status: Acute Qualifiers: Hypertension type: essential hypertension Qualified Code(s): I10 - Essential (primary) hypertension (4) Hyperthyroidism Code(s): E05.90 - THYROTOXICOSIS, UNSP WITHOUT THYROTOXIC CRISIS OR STORM Status: Acute (5) Metabolic encephalopathy Code(s): G93.41 - METABOLIC ENCEPHALOPATHY Status: Acute (6) Pneumonia Code(s): J18.9 - PNEUMONIA, UNSPECIFIED ORGANISM Status: Acute (7) Sepsis Code(s): A41.9 - SEPSIS, UNSPECIFIED ORGANISM Status: Acute (8) Hypothyroidism Code(s): E03.9 - HYPOTHYROIDISM, UNSPECIFIED Status: Chronic Qualifiers: Hypothyroidism type: unspecified Qualified Code(s): E03.9 - Hypothyroidism, unspecified Continue vent management per pulmonology. Leukocytosis secondary to pneumonia. White count is trending down. Will check his inflammatory markers. Status post extubation on March 16 Follow closely with pulmonary And appreciate their help. Inflammatory markers are trending down. Electrolytes in the normal range Blood glucose range also acceptable anywhere between 1 80-1 33. Intermittent confusion -Mainly supportive measures Significant leukocytosis today -Chest x-ray with a stable Covid pneumonia -We will repeat the CBC to make sure not serious. -Could be steroid-induced demargination. -Will check the UA. -Empiric antibiotic given the significant elevated white count Right arm ecchymosis and swelling -Warm compression -Ultrasound to rule out superficial and the deep vein thrombosis. 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 Switch the IV antibiotics to p.o. Plan for rehab placement.
--- NOTE | 2020-03-19 15:43 | PRG ---
DATE OF SERVICE: 03/19/2020 SUBJECTIVE: Adiel Posada is doing well. OBJECTIVE: VITAL SIGNS: She is afebrile. Heart rate is 92, respiratory rate is 20, oximetry is 100% on 2 L cannula, and blood pressure 145/76. LUNGS: Clear anteriorly. HEART: Regular rhythm. ABDOMEN: Soft. ASSESSMENT AND PLAN: She can be switched to prednisone. She can have her isolation discontinued. The family told me last week that she had been symptomatic 3 or 4 days prior to admission. Her has been COVID plus multiple medical problems. At some point in time, they want . She still remains intermittently confused. She was on routine Haldol and did well with this and was quite cooperative with the Haldol. She might benefit from Risperdal and low dose of Haldol a couple of times a day by mouth. We will sign off. Job ID: [id number]
[2020-03-19] MEDS: Doxycycline 100 MG CAP PO SCH (21:24)
[2020-03-19] MEDS: Apixaban 5 MG TAB PO SCH (21:24)
[2020-03-20 06:14] LABS: ALT (SGPT) 37 U/L (8-55); AST (SGOT) 37 U/L (5-34); Albumin 3.3 g/dL (3.4-4.8); Alkaline Phosphatase 61 U/L (40-110); Anion Gap 17 mmol/L (10-20); BUN (Urea Nitrogen) 49 mg/dL (9.8-20.1); Bilirubin, Direct 0.3 mg/dL (0.1-0.3); Bilirubin, Total 0.9 mg/dL (0.2-1.2); CRP (Inflammatory) 1.52 mg/dL (= or < 0.5); Calc. Creatinine Clearance 47 mL/min (70-130); Calcium 8.6 mg/dL (7.8-10.44); Carbon Dioxide 21 mmol/L (23-31); Chloride 111 mmol/L (98-107); Estimated GFR-MDRD 70; Glucose 141 mg/dL (83-110); Potassium 4.2 mmol/L (3.5-5.1); Protein, Total 6.5 g/dL (6.0-8.3); Sodium 145 mmol/L (136-145)
[2020-03-20 06:21] LABS: Band 4 % (5-11); Hemoglobin 7.8 g/dL (12.0-16.0); Lymphocytes 11 % (21-51); MDiff Complete? YES; Mean Corpuscular HGB CONC 32.8 g/dL (32.0-36.0); Mean Corpuscular Hemoglobin 32.1 pg (27.0-31.0); Mean Corpuscular Volume 97.8 fL (78.0-98.0); Mean Platelet Volume 9.5 fL (7.4-10.4); Monocytes 8 % (0-10); Neutrophil 77 % (42-75); Platelet Count 283 thou/uL (130-400); Platelet Morphology Comment Appears Adequate; RBC Distribution Width 13.5 % (11.5-14.5); Red Blood Cell (RBC) Count 2.43 mill/uL (4.20-5.40); White Blood Cell (WBC) Count 22.5 thou/uL (4.8-10.8)
[2020-03-20] MEDS: Folic Acid 1 MG TAB PO SCH (09:55)
[2020-03-20] MEDS: Famotidine 20 MG TAB PO SCH (09:55)
[2020-03-20] MEDS: Cyanocobalamin (Vitamin B-12) 1,000 MCG TAB PO SCH (09:55)
[2020-03-20] MEDS: Multivit, Therapeutic 1 TAB PO SCH (09:55)
[2020-03-20] MEDS: Doxycycline 100 MG CAP PO SCH ×2 (09:55→20:27)
[2020-03-20] MEDS: Ascorbic Acid 500 mg Chewable Tablet PO SCH (09:55)
[2020-03-20] MEDS: Apixaban 5 MG TAB PO SCH ×2 (09:55→20:27)
[2020-03-20] MEDS: Dexamethasone 4 mg/ml Vial SLOW IVP SCH (09:56)
--- NOTE | 2020-03-20 12:49 | PDOC.HOSPP ---
- Subjective Encounter Date: 03/20/20 Encounter Time: 09:50 Subjective: Patient appears very calm this morning. She did not had any major events overnight. She is stable. Contact isolation has been removed. She did not require any Haldol overnight. Will DC the as needed Haldol. - Objective Vital Signs & Weight: Vital Signs (12 hours) Temp Pulse Resp BP Pulse Ox 03/20/20 08:00 99 03/20/20 07:16 97.7 F 88 18 151/88 H 99 03/20/20 05:17 89 162/82 H 99 03/20/20 04:38 97.4 F L 92 18 179/94 H 98 Weight Admit Weight 106 lb 3.2 oz Weight 110 lb 3.698 oz Most Recent Monitor Data Heart Rate from ECG 89 NIBP 135/67 NIBP BP-Mean 89 Respiration from ECG 31 SpO2 91 I&O: 03/19/20 03/20/20 03/21/20 06:59 06:59 06:59 Intake Total 50 Output Total 500 Balance -500 50 Result Diagrams: 03/20/20 05:19 03/20/20 05:19 Hospitalist ROS - Medication Medications: Active Medications Generic Name Dose Route Start Last Admin Trade Name Freq PRN Reason Stop Dose Admin Acetaminophen 650 mg 03/02/20 20:10 03/04/20 23:50 Acetaminophen 325 Mg Tab PO 650 mg Q4H PRN Administration Headache/Fever/Mild Pain (1-3) Apixaban 2.5 mg 03/19/20 21:00 03/20/20 09:55 Apixaban 5 Mg Tab PO 2.5 mg BID CONSTANCE Administration Ascorbic Acid 1,000 mg 03/03/20 09:00 03/20/20 09:55 Ascorbic Acid 500 Mg Chewable Tablet PO 1,000 mg DAILY CONSTANCE Administration Cyanocobalamin 1,000 mcg 03/04/20 09:00 03/20/20 09:55 Cyanocobalamin (Vitamin B-12) 1,000 Mcg Tab PO 1,000 mcg DAILY CONSTANCE Administration Doxycycline Hyclate 100 mg 03/19/20 21:00 03/20/20 09:55 Doxycycline 100 Mg Cap PO 100 mg BID CONSTANCE Administration Famotidine 20 mg 03/19/20 09:00 03/20/20 09:55 Famotidine 20 Mg Tab PO 20 mg DAILY CONSTANCE Administration Folic Acid 1 mg 03/04/20 09:00 03/20/20 09:55 Folic Acid 1 Mg Tab PO 1 mg DAILY CONSTANCE Administration Multivitamins 1 tab 03/04/20 09:00 03/20/20 09:55 Multivit, Therapeutic 1 Tab PO 1 tab DAILY CONSTANCE Administration Sodium Chloride 10 ml 03/03/20 00:45 03/20/20 09:57 Flush - Normal Saline 10 Ml Syringe IVF 10 ml PRN PRN Administration Saline Flush - Exam General Appearance: NAD, awake alert Eye: PERRL ENT: normocephalic atraumatic Neck: supple Heart: RRR Respiratory: CTAB, normal chest expansion Gastrointestinal: soft, normal bowel sounds Psychiatric: oriented to person, oriented to place Hosp A/P - Plan (1) Acute respiratory failure with hypoxemia Code(s): J96.01 - ACUTE RESPIRATORY FAILURE WITH HYPOXIA Status: Acute (2) COVID-19 Code(s): U07.1 - COVID-19 Status: Acute (3) HTN (hypertension) Code(s): I10 - ESSENTIAL (PRIMARY) HYPERTENSION Status: Acute Qualifiers: Hypertension type: essential hypertension Qualified Code(s): I10 - Essential (primary) hypertension (4) Hyperthyroidism Code(s): E05.90 - THYROTOXICOSIS, UNSP WITHOUT THYROTOXIC CRISIS OR STORM Status: Acute (5) Metabolic encephalopathy Code(s): G93.41 - METABOLIC ENCEPHALOPATHY Status: Acute (6) Pneumonia Code(s): J18.9 - PNEUMONIA, UNSPECIFIED ORGANISM Status: Acute (7) Sepsis Code(s): A41.9 - SEPSIS, UNSPECIFIED ORGANISM Status: Acute (8) Hypothyroidism Code(s): E03.9 - HYPOTHYROIDISM, UNSPECIFIED Status: Chronic Qualifiers: Hypothyroidism type: unspecified Qualified Code(s): E03.9 - Hypothyroidism, unspecified Continue vent management per pulmonology. Leukocytosis secondary to pneumonia. White count is trending down. Will check his inflammatory markers. Status post extubation on March 16 Follow closely with pulmonary And appreciate their help. Inflammatory markers are trending down. Electrolytes in the normal range Blood glucose range also acceptable anywhere between 1 80-1 33. Intermittent confusion -Mainly supportive measures Significant leukocytosis today -Chest x-ray with a stable Covid pneumonia -We will repeat the CBC to make sure not serious. -Could be steroid-induced demargination. -Will check the UA. -Empiric antibiotic given the significant elevated white count Right arm ecchymosis and swelling -Warm compression -Ultrasound to rule out superficial and the deep vein thrombosis. 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 Switch the IV antibiotics to p.o.--on doxycycline as well as Levaquin. -Switch IV steroids to Decadron p.o. Restraints has been discontinued isolation has been removed. Plan for rehab placement. Son is Noah at [phone]
[2020-03-21 07:27] LABS: #Eosinphils 0.1 thou/uL (0.0-0.7); #Monocytes 1.3 thou/uL (0.11-0.59); #Neutrophils 15.6 thou/uL (1.40-6.50); %Basophils 0.2 % (0.0-1.0); %Eosinophils 0.3 % (0.0-10.0); %Lymphocytes 10.4 % (21.0-51.0); %Monocytes 6.8 % (0.0-10.0); %Neutrophils 82.3 % (42.0-75.0); Mean Corpuscular Hemoglobin 32.8 pg (27.0-31.0); Mean Corpuscular Volume 96.4 fL (78.0-98.0); Mean Platelet Volume 9.3 fL (7.4-10.4); Platelet Count 291 thou/uL (130-400); RBC Distribution Width 14.1 % (11.5-14.5); Red Blood Cell (RBC) Count 2.13 mill/uL (4.20-5.40)
[2020-03-21 07:44] LABS: Anion Gap 17 mmol/L (10-20); BUN (Urea Nitrogen) 48 mg/dL (9.8-20.1); Calc. Creatinine Clearance 46 mL/min (70-130); Calcium 8.9 mg/dL (7.8-10.44); Carbon Dioxide 19 mmol/L (23-31); Chloride 115 mmol/L (98-107); Estimated GFR-MDRD 68; Glucose 143 mg/dL (83-110); Potassium 5.2 mmol/L (3.5-5.1); Sodium 146 mmol/L (136-145)
[2020-03-21] MEDS: Apixaban 5 MG TAB PO SCH ×2 (09:26→20:21)
[2020-03-21] MEDS: Ascorbic Acid 500 mg Chewable Tablet PO SCH (09:26)
[2020-03-21] MEDS: Doxycycline 100 MG CAP PO SCH ×2 (09:26→20:21)
[2020-03-21] MEDS: Cyanocobalamin (Vitamin B-12) 1,000 MCG TAB PO SCH (09:26)
[2020-03-21] MEDS: Multivit, Therapeutic 1 TAB PO SCH (09:26)
[2020-03-21] MEDS: Folic Acid 1 MG TAB PO SCH (09:26)
[2020-03-21] MEDS: Dexamethasone 4 MG TAB PO SCH (09:26)
[2020-03-21] MEDS: Famotidine 20 MG TAB PO SCH (09:27)
--- NOTE | 2020-03-21 12:35 | PDOC.PALPN ---
Palliative Progress Note - Subjective No agitation at time of assessment, resting comfortably. Sleepy, lethargic. Denies complaints, but a not a reliable source for Review of systems - Objective Vital Signs: Vital Signs - Most Recent Temp Pulse Resp BP Pulse Ox 98.2 F 93 18 159/83 H 94 L 03/21/20 07:34 03/21/20 07:34 03/21/20 07:34 03/21/20 07:34 03/21/20 08:00 - Physical Exam Constitutional: ill appearing HEENT: EOMI, moist MMs, sclera anicteric Respiratory: clear to auscultation bilateral, no wheezing Cardiovascular: RRR Gastrointestinal: non-tender, positive bowel sounds, incontinent Genitourinary: incontinent Musculoskeletal: no cyanosis, diffuse muscle atrophy Skin: cap refill <2 seconds, bruising, fragile Psychiatric: flat affect - Assessment (1) Palliative care encounter Code(s): Z51.5 - ENCOUNTER FOR PALLIATIVE CARE Current Visit: Yes Status: Acute (2) Acute respiratory failure with hypoxemia Code(s): J96.01 - ACUTE RESPIRATORY FAILURE WITH HYPOXIA Current Visit: Yes Status: Acute (3) Metabolic encephalopathy Code(s): G93.41 - METABOLIC ENCEPHALOPATHY Current Visit: Yes Status: Acute (4) Pneumonia Code(s): J18.9 - PNEUMONIA, UNSPECIFIED ORGANISM Current Visit: Yes Status: Acute - Plan Plan: Patient off of isolation. Family in communication with patient. Adequate support for both patient and family now that isolation has been lifted. DNAR. Placement to be determined by case management. Please also refer to Palliative Care notes in note section. Palliative Care will sign off as goal of consult addressed. [35] minutes spent on this encounter with >50% of the time in counseling and coordination of care. - ROS Non Response: due to mental status
--- NOTE | 2020-03-21 13:42 | PDOC.HOSPP ---
- Subjective Encounter Date: 03/21/20 Encounter Time: 10:10 Subjective: Off restraints for last 224 hours she is clinically stable. I talked to the son at length. She is sitting in the bed and he is able to swallow some soft diet. The plan is discussed with the son and for possible rehab evaluation. Physical therapy is following with us. - Objective Vital Signs & Weight: Vital Signs (12 hours) Temp Pulse Resp BP Pulse Ox 03/21/20 08:00 94 L 03/21/20 07:34 98.2 F 93 18 159/83 H 94 L Weight Admit Weight 106 lb 3.2 oz Weight 110 lb 3.698 oz Most Recent Monitor Data Heart Rate from ECG 89 NIBP 135/67 NIBP BP-Mean 89 Respiration from ECG 31 SpO2 91 I&O: 03/20/20 03/21/20 03/22/20 06:59 06:59 06:59 Intake Total 50 Balance 50 Result Diagrams: 03/21/20 06:59 03/21/20 06:59 Hospitalist ROS - Medication Medications: Active Medications Generic Name Dose Route Start Last Admin Trade Name Freq PRN Reason Stop Dose Admin Acetaminophen 650 mg 03/02/20 20:10 03/04/20 23:50 Acetaminophen 325 Mg Tab PO 650 mg Q4H PRN Administration Headache/Fever/Mild Pain (1-3) Apixaban 2.5 mg 03/19/20 21:00 03/21/20 09:26 Apixaban 5 Mg Tab PO 2.5 mg BID CONSTANCE Administration Ascorbic Acid 1,000 mg 03/03/20 09:00 03/21/20 09:26 Ascorbic Acid 500 Mg Chewable Tablet PO 1,000 mg DAILY CONSTANCE Administration Cyanocobalamin 1,000 mcg 03/04/20 09:00 03/21/20 09:26 Cyanocobalamin (Vitamin B-12) 1,000 Mcg Tab PO 1,000 mcg DAILY CONSTANCE Administration Dexamethasone 6 mg 03/21/20 08:00 03/21/20 09:26 Dexamethasone 4 Mg Tab PO 6 mg QAM-WM CONSTANCE Administration Doxycycline Hyclate 100 mg 03/19/20 21:00 03/21/20 09:26 Doxycycline 100 Mg Cap PO 100 mg BID CONSTANCE Administration Famotidine 20 mg 03/19/20 09:00 03/21/20 09:27 Famotidine 20 Mg Tab PO 20 mg DAILY CONSTANCE Administration Folic Acid 1 mg 03/04/20 09:00 03/21/20 09:26 Folic Acid 1 Mg Tab PO 1 mg DAILY CONSTANCE Administration Multivitamins 1 tab 03/04/20 09:00 03/21/20 09:26 Multivit, Therapeutic 1 Tab PO 1 tab DAILY CONSTANCE Administration Sodium Chloride 10 ml 03/03/20 00:45 03/20/20 09:57 Flush - Normal Saline 10 Ml Syringe IVF 10 ml PRN PRN Administration Saline Flush - Exam General Appearance: NAD, awake alert Eye: PERRL ENT: normocephalic atraumatic Neck: supple Heart: RRR Respiratory: CTAB, normal chest expansion Gastrointestinal: soft, normal bowel sounds, no palpable masses Neurological: no focal deficits Psychiatric: A&O x 3 Hosp A/P - Plan (1) Acute respiratory failure with hypoxemia Code(s): J96.01 - ACUTE RESPIRATORY FAILURE WITH HYPOXIA Status: Acute (2) COVID-19 Code(s): U07.1 - COVID-19 Status: Acute (3) HTN (hypertension) Code(s): I10 - ESSENTIAL (PRIMARY) HYPERTENSION Status: Acute Qualifiers: Hypertension type: essential hypertension Qualified Code(s): I10 - Essential (primary) hypertension (4) Hyperthyroidism Code(s): E05.90 - THYROTOXICOSIS, UNSP WITHOUT THYROTOXIC CRISIS OR STORM Status: Acute (5) Metabolic encephalopathy Code(s): G93.41 - METABOLIC ENCEPHALOPATHY Status: Acute (6) Pneumonia Code(s): J18.9 - PNEUMONIA, UNSPECIFIED ORGANISM Status: Acute (7) Sepsis Code(s): A41.9 - SEPSIS, UNSPECIFIED ORGANISM Status: Acute (8) Hypothyroidism Code(s): E03.9 - HYPOTHYROIDISM, UNSPECIFIED Status: Chronic Qualifiers: Hypothyroidism type: unspecified Qualified Code(s): E03.9 - Hypothyroidism, unspecified Continue vent management per pulmonology. Leukocytosis secondary to pneumonia. White count is trending down. Will check his inflammatory markers. Status post extubation on March 16 Follow closely with pulmonary And appreciate their help. Inflammatory markers are trending down. Electrolytes in the normal range Blood glucose range also acceptable anywhere between 1 80-1 33. Intermittent confusion -Mainly supportive measures Significant leukocytosis today -Chest x-ray with a stable Covid pneumonia -We will repeat the CBC to make sure not serious. -Could be steroid-induced demargination. -Will check the UA. -Empiric antibiotic given the significant elevated white count Right arm ecchymosis and swelling -Warm compression -Ultrasound to rule out superficial and the deep vein thrombosis. 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 Switch the IV antibiotics to p.o.--on doxycycline as well as Levaquin. -Switch IV steroids to Decadron p.o. Restraints has been discontinued isolation has been removed. Plan for rehab placement. Son is Noah at [phone] -Improving clinically and stable to be discharged torehab -pending placement.
[2020-03-22] MEDS: Dexamethasone 4 MG TAB PO SCH (09:00)
[2020-03-22] MEDS: Multivit, Therapeutic 1 TAB PO SCH (09:00)
[2020-03-22] MEDS: Famotidine 20 MG TAB PO SCH (09:00)
[2020-03-22] MEDS: Apixaban 5 MG TAB PO SCH ×2 (09:00→23:10)
[2020-03-22] MEDS: Doxycycline 100 MG CAP PO SCH ×2 (09:00→23:10)
[2020-03-22] MEDS: Folic Acid 1 MG TAB PO SCH (09:00)
[2020-03-22] MEDS: Cyanocobalamin (Vitamin B-12) 1,000 MCG TAB PO SCH (09:01)
[2020-03-22] MEDS: Ascorbic Acid 500 mg Chewable Tablet PO SCH (09:01)
[2020-03-22 09:07] LABS: #Eosinphils 0.1 thou/uL (0.0-0.7); #Monocytes 0.9 thou/uL (0.11-0.59); #Neutrophils 13.9 thou/uL (1.40-6.50); %Basophils 0.2 % (0.0-1.0); %Eosinophils 0.7 % (0.0-10.0); %Lymphocytes 11.9 % (21.0-51.0); %Monocytes 5.3 % (0.0-10.0); %Neutrophils 81.9 % (42.0-75.0); Hemoglobin 7.6 g/dL (12.0-16.0); Mean Corpuscular HGB CONC 32.9 g/dL (32.0-36.0); Mean Corpuscular Hemoglobin 32.3 pg (27.0-31.0); Mean Corpuscular Volume 98.1 fL (78.0-98.0); Mean Platelet Volume 9.4 fL (7.4-10.4); Platelet Count 316 thou/uL (130-400); RBC Distribution Width 15.6 % (11.5-14.5); Red Blood Cell (RBC) Count 2.36 mill/uL (4.20-5.40); White Blood Cell (WBC) Count 16.9 thou/uL (4.8-10.8)
[2020-03-22 09:24] LABS: Anion Gap 20 mmol/L (10-20); BUN (Urea Nitrogen) 47 mg/dL (9.8-20.1); Calc. Creatinine Clearance 37 mL/min (70-130); Calcium 9.2 mg/dL (7.8-10.44); Carbon Dioxide 20 mmol/L (23-31); Chloride 114 mmol/L (98-107); Estimated GFR-MDRD 53; Glucose 327 mg/dL (83-110); Potassium 3.7 mmol/L (3.5-5.1); Sodium 150 mmol/L (136-145)
--- NOTE | 2020-03-22 11:17 | PDOC.HOSPP ---
- Subjective Encounter Date: 03/22/20 Encounter Time: 10:20 Subjective: She is resting no acute distress no acute events noted overnight. She is little tachypneic this morning. Her blood pressure is little elevated. - Objective Vital Signs & Weight: Vital Signs (12 hours) Temp Pulse Resp BP Pulse Ox 03/22/20 08:00 97.8 F 93 22 H 167/88 H 86 L Weight Admit Weight 106 lb 3.2 oz Weight 110 lb 3.698 oz Most Recent Monitor Data Heart Rate from ECG 89 NIBP 135/67 NIBP BP-Mean 89 Respiration from ECG 31 SpO2 91 I&O: 03/21/20 03/22/20 03/23/20 06:59 06:59 06:59 Intake Total 50 Balance 50 Result Diagrams: 03/22/20 08:50 03/22/20 08:50 Hospitalist ROS - Medication Medications: Active Medications Generic Name Dose Route Start Last Admin Trade Name Freq PRN Reason Stop Dose Admin Acetaminophen 650 mg 03/02/20 20:10 03/04/20 23:50 Acetaminophen 325 Mg Tab PO 650 mg Q4H PRN Administration Headache/Fever/Mild Pain (1-3) Apixaban 2.5 mg 03/19/20 21:00 03/22/20 09:00 Apixaban 5 Mg Tab PO 2.5 mg BID CONSTANCE Administration Ascorbic Acid 1,000 mg 03/03/20 09:00 03/22/20 09:01 Ascorbic Acid 500 Mg Chewable Tablet PO 1,000 mg DAILY CONSTANCE Administration Cyanocobalamin 1,000 mcg 03/04/20 09:00 03/22/20 09:01 Cyanocobalamin (Vitamin B-12) 1,000 Mcg Tab PO 1,000 mcg DAILY CONSTANCE Administration Dexamethasone 6 mg 03/21/20 08:00 03/22/20 09:00 Dexamethasone 4 Mg Tab PO 6 mg QAM-WM CONSTANCE Administration Doxycycline Hyclate 100 mg 03/19/20 21:00 03/22/20 09:00 Doxycycline 100 Mg Cap PO 100 mg BID CONSTANCE Administration Famotidine 20 mg 03/19/20 09:00 03/22/20 09:00 Famotidine 20 Mg Tab PO 20 mg DAILY CONSTANCE Administration Folic Acid 1 mg 03/04/20 09:00 03/22/20 09:00 Folic Acid 1 Mg Tab PO 1 mg DAILY CONSTANCE Administration Multivitamins 1 tab 03/04/20 09:00 03/22/20 09:00 Multivit, Therapeutic 1 Tab PO 1 tab DAILY CONSTANCE Administration Sodium Chloride 10 ml 03/03/20 00:45 03/20/20 09:57 Flush - Normal Saline 10 Ml Syringe IVF 10 ml PRN PRN Administration Saline Flush - Exam General Appearance: NAD, awake alert Eye: PERRL ENT: normocephalic atraumatic Neck: supple Heart: RRR Respiratory: normal chest expansion Gastrointestinal: soft, normal bowel sounds Neurological: cranial nerve grossly intact, no focal deficits Hosp A/P - Plan (1) Acute respiratory failure with hypoxemia Code(s): J96.01 - ACUTE RESPIRATORY FAILURE WITH HYPOXIA Status: Acute (2) COVID-19 Code(s): U07.1 - COVID-19 Status: Acute (3) HTN (hypertension) Code(s): I10 - ESSENTIAL (PRIMARY) HYPERTENSION Status: Acute Qualifiers: Hypertension type: essential hypertension Qualified Code(s): I10 - Essential (primary) hypertension (4) Hyperthyroidism Code(s): E05.90 - THYROTOXICOSIS, UNSP WITHOUT THYROTOXIC CRISIS OR STORM Status: Acute (5) Metabolic encephalopathy Code(s): G93.41 - METABOLIC ENCEPHALOPATHY Status: Acute (6) Pneumonia Code(s): J18.9 - PNEUMONIA, UNSPECIFIED ORGANISM Status: Acute (7) Sepsis Code(s): A41.9 - SEPSIS, UNSPECIFIED ORGANISM Status: Acute (8) Hypothyroidism Code(s): E03.9 - HYPOTHYROIDISM, UNSPECIFIED Status: Chronic Qualifiers: Hypothyroidism type: unspecified Qualified Code(s): E03.9 - Hypothyroidism, unspecified Continue vent management per pulmonology. Leukocytosis secondary to pneumonia. White count is trending down. Will check his inflammatory markers. Status post extubation on March 16 Follow closely with pulmonary And appreciate their help. Inflammatory markers are trending down. Electrolytes in the normal range Blood glucose range also acceptable anywhere between 1 80-1 33. Intermittent confusion -Mainly supportive measures Significant leukocytosis today -Chest x-ray with a stable Covid pneumonia -We will repeat the CBC to make sure not serious. -Could be steroid-induced demargination. -Will check the UA. -Empiric antibiotic given the significant elevated white count Right arm ecchymosis and swelling -Warm compression -Ultrasound to rule out superficial and the deep vein thrombosis. 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 Switch the IV antibiotics to p.o.--on doxycycline as well as Levaquin. -Switch IV steroids to Decadron p.o. Restraints has been discontinued isolation has been removed. Plan for rehab placement. Son is Noah at [phone] -Improving clinically and stable to be discharged to rehab [facility]ACE[facility]
[2020-03-23 06:15] LABS: Band 12 % (5-11); Hemoglobin 8.8 g/dL (12.0-16.0); Lymphocytes 11 % (21-51); MDiff Complete? YES; Mean Corpuscular HGB CONC 33.5 g/dL (32.0-36.0); Mean Corpuscular Volume 98.7 fL (78.0-98.0); Monocytes 2 % (0-10); Neutrophil 75 % (42-75); Platelet Count 338 thou/uL (130-400); RBC Distribution Width 16.7 % (11.5-14.5); Red Blood Cell (RBC) Count 2.66 mill/uL (4.20-5.40); White Blood Cell (WBC) Count 19.5 thou/uL (4.8-10.8)
[2020-03-23 06:17] LABS: Anion Gap 15 mmol/L (10-20); BUN (Urea Nitrogen) 50 mg/dL (9.8-20.1); Calc. Creatinine Clearance 46 mL/min (70-130); Calcium 9.6 mg/dL (7.8-10.44); Carbon Dioxide 24 mmol/L (23-31); Chloride 116 mmol/L (98-107); Estimated GFR-MDRD 68; Glucose 120 mg/dL (83-110); Potassium 3.8 mmol/L (3.5-5.1); Sodium 151 mmol/L (136-145)
[2020-03-23] MEDS ORDERED: Dextrose 5% w/ 20 mEq KCl 1,000 ML IV SCH (09:15)
--- NOTE | 2020-03-23 09:49 | RAD ---
RADIOGRAPH CHEST 1 VIEW: DATE: 03/23/2020 TIME: 9:36 AM HISTORY: 75-year-old female with leukocytosis COMPARISON: 03/18/2020 FINDINGS: Patchy interstitial/alveolar infiltrates at bilateral mid and lower lung zones. Upper lung zones are relatively spared. No cardiomegaly. No pneumothorax. Ectasia and tortuosity of thoracic aorta. No interval change overall. IMPRESSION: No interval change in the bilateral mild to moderate infiltrates.
[2020-03-23] MEDS: Famotidine 20 MG TAB PO SCH (09:50)
[2020-03-23] MEDS: Ascorbic Acid 500 mg Chewable Tablet PO SCH (09:50)
[2020-03-23] MEDS: Folic Acid 1 MG TAB PO SCH (09:50)
[2020-03-23] MEDS: Doxycycline 100 MG CAP PO SCH ×2 (09:50→20:18)
[2020-03-23] MEDS: Cyanocobalamin (Vitamin B-12) 1,000 MCG TAB PO SCH (09:50)
[2020-03-23] MEDS: Dexamethasone 4 MG TAB PO SCH (09:50)
[2020-03-23] MEDS: Apixaban 5 MG TAB PO SCH ×2 (09:50→20:18)
[2020-03-23] MEDS: Multivit, Therapeutic 1 TAB PO SCH (09:50)
[2020-03-23 12:17] LABS: Bilirubin Negative (Negative); Blood, Urine Negative (Negative); Clarity Clear (Clear); Glucose, Urine (Dipstick) Normal (Negative); Ketone, Urine 10 mg/dL (Negative); Leukocyte 25 Leu/uL (Negative); Nitrite Negative (Negative); Protein, Urine (Dipstick) 30 mg/dL (Neg-Trace); Specific Gravity, Urine 1.024 (1.002-1.036); Squamous Epithelial None Seen HPF (0-3); Urobilinogen Normal mg/dL (Less than 2); pH, Urine 5.5 (5.0-9.0)
[2020-03-23 12:30] LABS: RBC/HPF 0-3 HPF (0-3); Yeast-Budding 3+ HPF (None Seen)
[2020-03-23 12:31] LABS: Bacteria/HPF None Seen HPF (None Seen)
[2020-03-23 12:40] LABS: Creatinine, Urine 101.29 mg/dL (47-110)
--- NOTE | 2020-03-23 12:52 | PDOC.HOSPP ---
- Subjective Encounter Date: 03/23/20 Encounter Time: 09:10 Subjective: Patient doing well. She is tachycardic this morning. Mentation clear. She is afebrile sats are okay at 96% with 2 L oxygen. However when physical therapy tried to make her out of the bed her sats dropped. Her white count went up to 19,000. Stat chest x-ray did not show any worsening of her infiltrate which is mild to moderate bilateral. Will follow with the urine analysis as well. - Objective Vital Signs & Weight: Vital Signs (12 hours) Temp Pulse Resp BP Pulse Ox 03/23/20 11:00 97.5 F L 101 H 20 149/92 H 96 03/23/20 07:49 98.2 F 88 16 152/87 H 90 L Weight Admit Weight 106 lb 3.2 oz Weight 110 lb 3.698 oz Most Recent Monitor Data Heart Rate from ECG 89 NIBP 135/67 NIBP BP-Mean 89 Respiration from ECG 31 SpO2 91 I&O: 03/22/20 03/23/20 03/24/20 06:59 06:59 06:59 Intake Total 400 Balance 400 Result Diagrams: 03/23/20 05:43 03/23/20 05:43 Hospitalist ROS - Medication Medications: Active Medications Generic Name Dose Route Start Last Admin Trade Name Enrriqueq PRN Reason Stop Dose Admin Acetaminophen 650 mg 03/02/20 20:10 03/04/20 23:50 Acetaminophen 325 Mg Tab PO 650 mg Q4H PRN Administration Headache/Fever/Mild Pain (1-3) Apixaban 2.5 mg 03/19/20 21:00 03/23/20 09:50 Apixaban 5 Mg Tab PO 2.5 mg BID CONSTANCE Administration Ascorbic Acid 1,000 mg 03/03/20 09:00 03/23/20 09:50 Ascorbic Acid 500 Mg Chewable Tablet PO 1,000 mg DAILY CONSTANCE Administration Cyanocobalamin 1,000 mcg 03/04/20 09:00 03/23/20 09:50 Cyanocobalamin (Vitamin B-12) 1,000 Mcg Tab PO 1,000 mcg DAILY CONSTANCE Administration Dexamethasone 6 mg 03/21/20 08:00 03/23/20 09:50 Dexamethasone 4 Mg Tab PO 6 mg QAM-WM CONSTANCE Administration Doxycycline Hyclate 100 mg 03/19/20 21:00 03/23/20 09:50 Doxycycline 100 Mg Cap PO 100 mg BID CONSTANCE Administration Famotidine 20 mg 03/19/20 09:00 03/23/20 09:50 Famotidine 20 Mg Tab PO 20 mg DAILY CONSTANCE Administration Folic Acid 1 mg 03/04/20 09:00 03/23/20 09:50 Folic Acid 1 Mg Tab PO 1 mg DAILY CONSTANCE Administration Potassium Chloride/Dextrose 1,000 mls @ 50 mls/hr 03/23/20 09:15 03/23/20 11:33 D5w W/ 20 Meq Kcl IV 03/24/20 05:14 1,000 mls .Q20H CONSTANCE Administration Multivitamins 1 tab 03/04/20 09:00 03/23/20 09:50 Multivit, Therapeutic 1 Tab PO 1 tab DAILY CONSTANCE Administration Sodium Chloride 10 ml 03/03/20 00:45 03/20/20 09:57 Flush - Normal Saline 10 Ml Syringe IVF 10 ml PRN PRN Administration Saline Flush - Exam General Appearance: NAD, awake alert Eye: PERRL ENT: normocephalic atraumatic Neck: supple Respiratory: normal chest expansion Neurological: no focal deficits Psychiatric: A&O x 3 Hosp A/P - Plan (1) Acute respiratory failure with hypoxemia Code(s): J96.01 - ACUTE RESPIRATORY FAILURE WITH HYPOXIA Status: Acute (2) COVID-19 Code(s): U07.1 - COVID-19 Status: Acute (3) HTN (hypertension) Code(s): I10 - ESSENTIAL (PRIMARY) HYPERTENSION Status: Acute Qualifiers: Hypertension type: essential hypertension Qualified Code(s): I10 - Essential (primary) hypertension (4) Hyperthyroidism Code(s): E05.90 - THYROTOXICOSIS, UNSP WITHOUT THYROTOXIC CRISIS OR STORM Status: Acute (5) Metabolic encephalopathy Code(s): G93.41 - METABOLIC ENCEPHALOPATHY Status: Acute (6) Pneumonia Code(s): J18.9 - PNEUMONIA, UNSPECIFIED ORGANISM Status: Acute (7) Sepsis Code(s): A41.9 - SEPSIS, UNSPECIFIED ORGANISM Status: Acute (8) Hypothyroidism Code(s): E03.9 - HYPOTHYROIDISM, UNSPECIFIED Status: Chronic Qualifiers: Hypothyroidism type: unspecified Qualified Code(s): E03.9 - Hypothyroidism, unspecified Continue vent management per pulmonology. Leukocytosis secondary to pneumonia. White count is trending down. Will check his inflammatory markers. Status post extubation on March 16 Follow closely with pulmonary And appreciate their help. Inflammatory markers are trending down. Electrolytes in the normal range Blood glucose range also acceptable anywhere between 1 80-1 33. Intermittent confusion -Mainly supportive measures Significant leukocytosis today -Chest x-ray with a stable Covid pneumonia -We will repeat the CBC to make sure not serious. -Could be steroid-induced demargination. -Will check the UA. -Empiric antibiotic given the significant elevated white count Right arm ecchymosis and swelling -Warm compression -Ultrasound to rule out superficial and the deep vein thrombosis. 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 Switch the IV antibiotics to p.o.--on doxycycline as well as Levaquin. -Switch IV steroids to Decadron p.o. Restraints has been discontinued isolation has been removed. 7th Leukocytosis Persistent hypoxia -Chest x-ray with bilateral stable infiltrates and not worsening. Patient is on doxycycline as well as dexamethasone for now. -She is urine incontinent. A straight cath showed proteinuria, leukocyte esterase positive but nitrite negative. And 3+ yeast. So I am not going to treat this urine findings with aggressive antibiotics at this point unless she has a fever and further elevation in her white count. Doxycycline would be sufficient for now unless clinical condition worsens. Son is Noah at [phone] -Improving clinically and stable to be discharged to rehab [facility]ACE[facility]
[2020-03-24 05:59] LABS: Anion Gap 13 mmol/L (10-20); BUN (Urea Nitrogen) 40 mg/dL (9.8-20.1); Calc. Creatinine Clearance 50 mL/min (70-130); Carbon Dioxide 21 mmol/L (23-31); Chloride 115 mmol/L (98-107); Estimated GFR-MDRD 74; Glucose 146 mg/dL (83-110); Potassium 4.2 mmol/L (3.5-5.1); Sodium 145 mmol/L (136-145)
[2020-03-24 06:00] LABS: Band 5 % (5-11); Lymphocytes 9 % (21-51); MDiff Complete? YES; Mean Corpuscular HGB CONC 33.5 g/dL (32.0-36.0); Mean Corpuscular Hemoglobin 33.3 pg (27.0-31.0); Mean Corpuscular Volume 99.6 fL (78.0-98.0); Mean Platelet Volume 8.8 fL (7.4-10.4); Monocytes 3 % (0-10); Neutrophil 83 % (42-75); Platelet Count 311 thou/uL (130-400); Polychromasia SLIGHT = 2-3 cells (100X) (0-2/hpf); RBC Distribution Width 17.7 % (11.5-14.5); Red Blood Cell (RBC) Count 2.69 mill/uL (4.20-5.40); White Blood Cell (WBC) Count 18.6 thou/uL (4.8-10.8)
[2020-03-24] MEDS: Famotidine 20 MG TAB PO SCH (07:49)
[2020-03-24] MEDS: Multivit, Therapeutic 1 TAB PO SCH (07:49)
[2020-03-24] MEDS: Doxycycline 100 MG CAP PO SCH ×2 (07:49→20:27)
[2020-03-24] MEDS: Apixaban 5 MG TAB PO SCH ×2 (07:50→20:27)
[2020-03-24] MEDS: Folic Acid 1 MG TAB PO SCH (07:50)
[2020-03-24] MEDS: Dexamethasone 4 MG TAB PO SCH (07:50)
[2020-03-24] MEDS: Cyanocobalamin (Vitamin B-12) 1,000 MCG TAB PO SCH (07:50)
[2020-03-24] MEDS: Ascorbic Acid 500 mg Chewable Tablet PO SCH (07:50)
--- NOTE | 2020-03-24 12:34 | PDOC.HOSPP ---
- Subjective Encounter Date: 03/24/20 Encounter Time: 09:40 Subjective: Patient is resting well. Acute events noted overnight her sats are good at 95% in the room air. Her blood pressure is little elevated. - Objective Vital Signs & Weight: Vital Signs (12 hours) Temp Pulse Resp BP Pulse Ox 03/24/20 11:27 98.1 F 87 20 155/78 H 95 03/24/20 07:48 96 03/24/20 07:37 161/101 H 03/24/20 07:33 98.2 F 72 20 97 Weight Admit Weight 106 lb 3.2 oz Weight 110 lb 3.698 oz Most Recent Monitor Data Heart Rate from ECG 89 NIBP 135/67 NIBP BP-Mean 89 Respiration from ECG 31 SpO2 91 I&O: 03/23/20 03/24/20 03/25/20 06:59 06:59 06:59 Intake Total 400 640 Output Total 250 Balance 400 390 Result Diagrams: 03/24/20 05:26 03/24/20 05:26 Hospitalist ROS - Medication Medications: Active Medications Generic Name Dose Route Start Last Admin Trade Name Freq PRN Reason Stop Dose Admin Acetaminophen 650 mg 03/02/20 20:10 03/04/20 23:50 Acetaminophen 325 Mg Tab PO 650 mg Q4H PRN Administration Headache/Fever/Mild Pain (1-3) Apixaban 2.5 mg 03/19/20 21:00 03/24/20 07:50 Apixaban 5 Mg Tab PO 2.5 mg BID CONSTANCE Administration Ascorbic Acid 1,000 mg 03/03/20 09:00 03/24/20 07:50 Ascorbic Acid 500 Mg Chewable Tablet PO 1,000 mg DAILY CONSTANCE Administration Cyanocobalamin 1,000 mcg 03/04/20 09:00 03/24/20 07:50 Cyanocobalamin (Vitamin B-12) 1,000 Mcg Tab PO 1,000 mcg DAILY CONSTANCE Administration Dexamethasone 6 mg 03/21/20 08:00 03/24/20 07:50 Dexamethasone 4 Mg Tab PO 6 mg QAM-WM CONSTANCE Administration Doxycycline Hyclate 100 mg 03/19/20 21:00 03/24/20 07:49 Doxycycline 100 Mg Cap PO 100 mg BID CONSTANCE Administration Famotidine 20 mg 03/19/20 09:00 03/24/20 07:49 Famotidine 20 Mg Tab PO 20 mg DAILY CONSTANCE Administration Folic Acid 1 mg 03/04/20 09:00 03/24/20 07:50 Folic Acid 1 Mg Tab PO 1 mg DAILY CONSTANCE Administration Multivitamins 1 tab 03/04/20 09:00 03/24/20 07:49 Multivit, Therapeutic 1 Tab PO 1 tab DAILY CONSTANCE Administration Sodium Chloride 10 ml 03/03/20 00:45 03/20/20 09:57 Flush - Normal Saline 10 Ml Syringe IVF 10 ml PRN PRN Administration Saline Flush - Exam General Appearance: NAD, awake alert Eye: PERRL ENT: normocephalic atraumatic Neck: supple Heart: RRR Respiratory: no wheezes, no ronchi Gastrointestinal: soft, normal bowel sounds Neurological: no new deficit Psychiatric: oriented to person Hosp A/P - Plan (1) Acute respiratory failure with hypoxemia Code(s): J96.01 - ACUTE RESPIRATORY FAILURE WITH HYPOXIA Status: Acute (2) COVID-19 Code(s): U07.1 - COVID-19 Status: Acute (3) HTN (hypertension) Code(s): I10 - ESSENTIAL (PRIMARY) HYPERTENSION Status: Acute Qualifiers: Hypertension type: essential hypertension Qualified Code(s): I10 - Essential (primary) hypertension (4) Hyperthyroidism Code(s): E05.90 - THYROTOXICOSIS, UNSP WITHOUT THYROTOXIC CRISIS OR STORM Status: Acute (5) Metabolic encephalopathy Code(s): G93.41 - METABOLIC ENCEPHALOPATHY Status: Acute (6) Pneumonia Code(s): J18.9 - PNEUMONIA, UNSPECIFIED ORGANISM Status: Acute (7) Sepsis Code(s): A41.9 - SEPSIS, UNSPECIFIED ORGANISM Status: Acute (8) Hypothyroidism Code(s): E03.9 - HYPOTHYROIDISM, UNSPECIFIED Status: Chronic Qualifiers: Hypothyroidism type: unspecified Qualified Code(s): E03.9 - Hypothyroidism, unspecified stable Covid pneumonia Intermittent confusion/metabolic encephalopathy -Mainly supportive measures Right arm ecchymosis and swelling -Warm compression 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 Restraints has been renewed as needed basis isolation has been removed. Leukocytosis Persistent hypoxia -Chest x-ray with bilateral stable infiltrates and not worsening. Patient is on doxycycline as well as dexamethasone for now. -She is urine incontinent. A straight cath showed proteinuria, leukocyte esterase positive but nitrite negative. And 3+ yeast. So I am not going to treat this urine findings with aggressive antibiotics at this point unless she has a fever and further elevation in her white count. Doxycycline would be sufficient for now unless clinical condition worsens. Hypertension -Started her on Norvasc Son is Noah at [phone] -If the leukocytosis trending down and clinically stable then possible transfer to rehab. [facility] AR
[2020-03-25 06:25] LABS: #Eosinphils 0.1 thou/uL (0.0-0.7); #Lymphocytes 2.2 thou/uL (1.20-3.40); #Monocytes 0.9 thou/uL (0.11-0.59); #Neutrophils 12.7 thou/uL (1.40-6.50); %Basophils 0.3 % (0.0-1.0); %Eosinophils 0.8 % (0.0-10.0); %Monocytes 5.3 % (0.0-10.0); %Neutrophils 79.6 % (42.0-75.0); Hemoglobin 9.7 g/dL (12.0-16.0); Mean Corpuscular HGB CONC 32.9 g/dL (32.0-36.0); Mean Corpuscular Hemoglobin 33.6 pg (27.0-31.0); Mean Platelet Volume 9.1 fL (7.4-10.4); Platelet Count 310 thou/uL (130-400); Red Blood Cell (RBC) Count 2.88 mill/uL (4.20-5.40)
[2020-03-25 06:38] LABS: Anion Gap 13 mmol/L (10-20); BUN (Urea Nitrogen) 39 mg/dL (9.8-20.1); Calc. Creatinine Clearance 54 mL/min (70-130); Carbon Dioxide 24 mmol/L (23-31); Chloride 112 mmol/L (98-107); Estimated GFR-MDRD 81; Glucose 116 mg/dL (83-110); Potassium 4.1 mmol/L (3.5-5.1); Sodium 145 mmol/L (136-145)
--- NOTE | 2020-03-25 08:57 | PDOC.HOSPP ---
- Subjective Encounter Date: 03/25/20 Encounter Time: 10:10 Subjective: Patient without complaints. Not speaking but will mouth words. Knows she is in hospital but couldn't give the town. Heart rate normal at rest, jumped to 140 with PT just now, down to 100 while back in bed. - Objective Vital Signs & Weight: Vital Signs (12 hours) Temp Pulse Resp BP Pulse Ox 03/25/20 07:30 98.2 F 70 20 159/90 H 99 Weight Admit Weight 106 lb 3.2 oz Weight 110 lb 3.698 oz Most Recent Monitor Data Heart Rate from ECG 89 NIBP 135/67 NIBP BP-Mean 89 Respiration from ECG 31 SpO2 91 I&O: 03/24/20 03/25/20 03/26/20 06:59 06:59 06:59 Intake Total 640 490 Output Total 250 Balance 390 490 Result Diagrams: 03/25/20 05:52 03/25/20 05:52 Hospitalist ROS - Review of Systems ROS unobtainable: due to mental status - Medication Medications: Active Medications Generic Name Dose Route Start Last Admin Trade Name Freq PRN Reason Stop Dose Admin Acetaminophen 650 mg 03/02/20 20:10 03/04/20 23:50 Acetaminophen 325 Mg Tab PO 650 mg Q4H PRN Administration Headache/Fever/Mild Pain (1-3) Apixaban 2.5 mg 03/19/20 21:00 03/24/20 20:27 Apixaban 5 Mg Tab PO 2.5 mg BID CONSTANCE Administration Ascorbic Acid 1,000 mg 03/03/20 09:00 03/24/20 07:50 Ascorbic Acid 500 Mg Chewable Tablet PO 1,000 mg DAILY CONSTANCE Administration Cyanocobalamin 1,000 mcg 03/04/20 09:00 03/24/20 07:50 Cyanocobalamin (Vitamin B-12) 1,000 Mcg Tab PO 1,000 mcg DAILY CONSTANCE Administration Dexamethasone 6 mg 03/21/20 08:00 03/24/20 07:50 Dexamethasone 4 Mg Tab PO 6 mg QAM-WM CONSTANCE Administration Famotidine 20 mg 03/19/20 09:00 03/24/20 07:49 Famotidine 20 Mg Tab PO 20 mg DAILY CONSTANCE Administration Folic Acid 1 mg 03/04/20 09:00 03/24/20 07:50 Folic Acid 1 Mg Tab PO 1 mg DAILY CONSTANCE Administration Multivitamins 1 tab 03/04/20 09:00 03/24/20 07:49 Multivit, Therapeutic 1 Tab PO 1 tab DAILY CONSTANCE Administration Sodium Chloride 10 ml 03/03/20 00:45 03/20/20 09:57 Flush - Normal Saline 10 Ml Syringe IVF 10 ml PRN PRN Administration Saline Flush - Exam General Appearance: NAD, awake alert ENT: moist mucosa Heart: no murmur, no gallops, no rubs. negative: irregular Heart - other findings: tachycardic Respiratory: CTAB, no wheezes, no rales, no ronchi Gastrointestinal: soft, non-tender, non-distended, normal bowel sounds Psychiatric: normal affect, normal behavior, oriented to person Hosp A/P (1) Acute respiratory failure with hypoxemia Code(s): J96.01 - ACUTE RESPIRATORY FAILURE WITH HYPOXIA Status: Acute (2) COVID-19 Code(s): U07.1 - COVID-19 Status: Acute (3) UTI (urinary tract infection) Status: Acute (4) Sepsis Code(s): A41.9 - SEPSIS, UNSPECIFIED ORGANISM Status: Acute Plan: resolved (5) HTN (hypertension) Code(s): I10 - ESSENTIAL (PRIMARY) HYPERTENSION Status: Acute Qualifiers: Hypertension type: essential hypertension Qualified Code(s): I10 - Essential (primary) hypertension (6) Metabolic encephalopathy Code(s): G93.41 - METABOLIC ENCEPHALOPATHY Status: Acute (7) Hypothyroidism Code(s): E03.9 - HYPOTHYROIDISM, UNSPECIFIED Status: Chronic Qualifiers: Hypothyroidism type: unspecified Qualified Code(s): E03.9 - Hypothyroidism, unspecified - Plan stable Covid pneumonia Intermittent confusion/metabolic encephalopathy -Mainly supportive measures, low dose O2, off precautions, stable for d/c Tachycardia- check EKG, likely sinus tach from deconditioning when she does PT, no significant anemia, no hypoxia. 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 Leukocytosis Hypoxia improved, sating 100% on 2L NC. -Chest x-ray with bilateral stable infiltrates and not worsening. Patient is on doxycycline as well as dexamethasone for now. -Recent UA ok, but that was after 2-3 days of Rocephin. Looking back patient had a positive culture for E.coli on 03/18. Knight sensitive but not to doxy. Will stop the doxy and start Amoxicillin to complete antibiotic course. Hypertension -Started her on Norvasc Son is Noah at [phone] -Patient continues to improve. Stable for d/c to SNF/rehab. DNAR
[2020-03-25] MEDS: AMOXicillin 250 MG CAP PO SCH ×3 (10:02→20:28)
[2020-03-25] MEDS: Apixaban 5 MG TAB PO SCH ×2 (10:03→20:28)
[2020-03-25] MEDS: Famotidine 20 MG TAB PO SCH (10:03)
[2020-03-25] MEDS: Ascorbic Acid 500 mg Chewable Tablet PO SCH (10:03)
[2020-03-25] MEDS: Folic Acid 1 MG TAB PO SCH (10:04)
[2020-03-25] MEDS: Multivit, Therapeutic 1 TAB PO SCH (10:04)
[2020-03-25] MEDS: Dexamethasone 4 MG TAB PO SCH (10:04)
[2020-03-25] MEDS: Cyanocobalamin (Vitamin B-12) 1,000 MCG TAB PO SCH (10:04)
[2020-03-25] MEDS ORDERED: Senokot S 8.6-50 MG TAB PO PRN (18:12)
[2020-03-26 05:55] LABS: Hemoglobin 9.7 g/dL (12.0-16.0); Mean Corpuscular Hemoglobin 33.5 pg (27.0-31.0); Mean Platelet Volume 8.8 fL (7.4-10.4); Platelet Count 350 thou/uL (130-400); RBC Distribution Width 18.2 % (11.5-14.5); White Blood Cell (WBC) Count 16.3 thou/uL (4.8-10.8)
[2020-03-26 06:08] LABS: Anion Gap 14 mmol/L (10-20); BUN (Urea Nitrogen) 39 mg/dL (9.8-20.1); Calc. Creatinine Clearance 52 mL/min (70-130); Calcium 9.3 mg/dL (7.8-10.44); Carbon Dioxide 25 mmol/L (23-31); Chloride 110 mmol/L (98-107); Estimated GFR-MDRD 79; Glucose 102 mg/dL (83-110); Potassium 4.2 mmol/L (3.5-5.1); Sodium 145 mmol/L (136-145)
[2020-03-26 06:52] LABS: #Eosinphils 0.1 thou/uL (0.0-0.7); #Lymphocytes 2.2 thou/uL (1.20-3.40); #Monocytes 0.8 thou/uL (0.11-0.59); #Neutrophils 13.1 thou/uL (1.40-6.50); %Eosinophils 0.7 % (0.0-10.0); %Lymphocytes 13.6 % (21.0-51.0); %Monocytes 5.2 % (0.0-10.0); %Neutrophils 80.6 % (42.0-75.0); Anisocytosis SLIGHT = 6-15 cells (100X) (0-5/hpf); Band 5 % (5-11); Eosinophils 1 % (0-10); Lymphocytes 15 % (21-51); MDiff Complete? YES; Macrocytosis SLIGHT = 6-15 cells (100X) (0-5/hpf); Metamyelocyte 1 % (0-0); Myelocyte 1 % (0-0); Neutrophil 77 % (42-75)
[2020-03-26] MEDS ORDERED: Dexamethasone 4 MG TAB PO SCH (08:00)
[2020-03-26] MEDS ORDERED: Citalopram 20 MG TAB PO SCH (09:00)
[2020-03-26] MEDS: AMOXicillin 250 MG CAP PO SCH ×2 (10:07→15:23)
[2020-03-26] MEDS: Folic Acid 1 MG TAB PO SCH (10:07)
[2020-03-26] MEDS: Ascorbic Acid 500 mg Chewable Tablet PO SCH (10:07)
[2020-03-26] MEDS: Multivit, Therapeutic 1 TAB PO SCH (10:08)
[2020-03-26] MEDS: Famotidine 20 MG TAB PO SCH (10:08)
[2020-03-26] MEDS: Apixaban 5 MG TAB PO SCH (10:08)
[2020-03-26] MEDS: Cyanocobalamin (Vitamin B-12) 1,000 MCG TAB PO SCH (10:08)
[2020-03-26 17:16] VITALS: BP 129/85; TEMP 98.3
--- NOTE | 2020-03-26 19:49 | PDOC.DS.DS ---
Provider - Provider Date of Admission: 03/02/20 20:10 Date of Discharge: 03/26/20 Admitting Provider: Saul Bran MD Consultations: Pulmonary (Dr. Johnny Lofton) Primary Care Physician: Sumit Pierre MD Course - Hospital Course Hospital Course: Brief HPI: This is a 75 year old female with history of hypertension who was brought to the ER with progressive altered mental status. The patient 101, UA suggested UTI. Chest x-ray showed a left lower lobe infiltrate. Patient was given IV vancomycin, cefepime and azithromycin and admitted for further work-up.he patient was started on IV vancomycin and ceftriaxone which was discontinued. COVID test was positive. Hospital course: Acute encephalopathy secondary to COVID pneumonia: Infectious disease was consulted and she completed a five daycourse of remdesivir. Antibiotics were discontinued. Blood cultures were negative. She was started on dexamethasone 6 mg IV daily and received convalescent plasma on 03/04. On 03/05 the patient progressively became more hypoxic and required intubation. She received anticoagulation. Serial chest x-rays showed stable infiltrates. She eventually improved and was extubated on 03/16. She was transferred to the floor. She pulmonary was following and the patient received doxycycline from 03/19-03/24. She was eventually weaned off oxygen. Her steroids will be discontinued on discharge. Acute encephalopathy possibly secondary to depression versus UTI: Patient was confused while in the hospital. Frequently she would not answer questions and would not communicate much. According to the son the patient's 2 weeks ago. She stated that she would answer questions and talk to her son appropriately. She was started on Celexa due to concerns for depression. She had a UA which showed 11-20 white blood cells and positive leukocyte esterase. She did receive 1 dose of IV ceftriaxone on 03/18. Urine culture grew 100,000 E. coli. Patient was started on amoxicillin and will be discharged with 5 more days of this to complete a 7-day course of antibiotics. On the day of discharge patient's was not oriented to place or month. The son face timed the patient and he felt that the patient was unchanged from the days prior and did not feel any hesitation to discharge and felt she would improve once she leaves the hospital. Basilic vein thrombus: this was noted on her ultrasound on 03/18. She will be discharged with eliquis. She was discharged with Pepcid for GI prophylaxis. Physical deconditioning: Patient was seen by physical therapy and was accepted to rehab which she will be sent to on discharge. Macrocytic anemia: She was started on vitamin B12 and folate while in the hospital due to her episodes of confusion. Vitamin B12 greater than 2000 and folate was high at 35.6. TSH was low but free T4 was normal. She was discharged with folate supplements due to poor oral intake but this can be discontinued if her appetite improves. Consider further work-up as an outpatient. Poor appetite: Patient was noted to not be eating much. She was discharged with a multivitamin. This can be discontinued if her appetite improves. Pertinent Studies: Chest X ray 03/04: marked interval worsening of nonspecific interstitial and alveolar opacity. Chest x ray 03/05: unchanged interstitial and alveolar opacity. Chest X ray 03/12: multifocal infiltrate stable. Chest X ray 03/13: no interval change Chest X ray 03/14: stable multilobar pneumonia Chest X ray 03/15: slight interval improvement lower lung aeration Chest x ray 03/15: interval extubation Shoulder Xray 03/17: no acute abnormality Chest X ray 03/18: no evidence for COVID Vascular Ultrasound 03/18: occlusive thrombosis of basilic vein in the forearm. Significant soft tissue edema of the arm and antecubital fossa Chest X ray 03/23: negative Procedures: intubation and extubation Resuscitation Status: 03/07/20 15:26 Resuscitation Status Routine Resuscitation Status: DNAR: NO Resuscitation Discussed with: Pt. zenaida Alford - Labs Lab Results: 03/26/20 05:29 03/26/20 05:29 Abnormal Lab Results - Last 48 hrs 03/25/20 05:52: Chloride 112 H, BUN 39 H 03/25/20 05:52: WBC 16.0 H, RBC 2.88 L, Hgb 9.7 L, Hct 29.5 L, MCV 102.0 H, MCH 33.6 H, RDW 18.0 H, Neutrophils % 79.6 H, Lymphocytes % 14.0 L, Neutrophils # 12.7 H, Monocytes # 0.9 H 03/26/20 05:29: Chloride 110 H, BUN 39 H 03/26/20 05:29: WBC 16.3 H, RBC 2.90 L, Hgb 9.7 L, Hct 29.5 L, MCV 102.0 H, MCH 33.5 H, RDW 18.2 H, Neutrophils % 80.6 H, Neutrophils % (Manual) 77 H, Lymphocytes % 13.6 L, Lymphocytes % (Manual) 15 L, Metamyelocytes % (Man) 1 H, Myelocytes % 1 H, Neutrophils # 13.1 H, Monocytes # 0.8 H 03/26/20 11:57: Folate 35.60 H 03/26/20 11:57: Vitamin B12 Greater than 2000 H Microbiology - Entire Visit 03/18/20 18:49 Urine ferris catheter Urine Culture - Final Escherichia coli 03/02/20 20:31 Venous blood - Left Arm Blood Culture - Final NO GROWTH IN 5 DAYS 03/02/20 20:30 Venous blood - Right Arm Blood Culture - Final NO GROWTH IN 5 DAYS 03/02/20 05:40 Urine clean catch Urine Culture - Final NO GROWTH AT 48 HOURS - Physical Exam Vitals: Vital Signs (12 hours) Temp Pulse Pulse Resp BP BP Pulse Ox 03/26/20 17:15 98.3 F 81 16 129/85 100 03/26/20 10:40 74 149/89 H 03/26/20 08:00 93 L Pulse Ox 03/26/20 17:15 03/26/20 10:40 93 L 03/26/20 08:00 Weight Admit Weight 106 lb 3.2 oz Weight 110 lb 3.698 oz Most Recent Monitor Data Heart Rate from ECG 89 NIBP 135/67 NIBP BP-Mean 89 Respiration from ECG 31 SpO2 91 Physical Exam: The patient was seen and examined on the day of discharge. General: patient appears tired. She is not oriented to month or year or place. She has a flat affect. She was more coherent with son after he face-timed her Lungs: diminished bilaterally CV: RRR, no murmurs, rubs, gallops Abdomen: +BS, soft, nontender, nondistended Extremities: no edema Problem - Discharge Plan Plan of Treatment: You were diagnosed with COVID pneumonia. Get a repeat chest xray in 6 weeks. The patient had a basilic vein thrombus. She was started on eliquis. The patient had an elevated WBC of 16.3. Consider repeat CBC as an outpatient. Consider further workup of anemia as an outpatient. - Time spent with Patient (mins): 40 Plan - Discharge Medications Prescriptions: Amoxicillin 500 mg PO Q8HR #10 capsule Citalopram [CeleXA] 20 mg PO DAILY #30 tab Apixaban [Eliquis] 2.5 mg PO BID #60 tab Famotidine 20 mg PO DAILY #30 tablet Folic Acid 1 mg PO DAILY #30 tablet Multivitamin 1 each PO DAILY #30 tablet Home Medications: Medication Instructions Recorded Confirmed Type Amoxicillin 500 mg PO Q8HR #10 capsule 03/26/20 Rx Apixaban [Eliquis] 2.5 mg PO BID #60 tab 03/26/20 Rx Citalopram [CeleXA] 20 mg PO DAILY #30 tab 03/26/20 Rx Famotidine 20 mg PO DAILY #30 tablet 03/26/20 Rx Folic Acid 1 mg PO DAILY #30 tablet 03/26/20 Rx Multivitamin 1 each PO DAILY #30 tablet 03/26/20 Rx Allergies: No Known Drug Allergies Allergy (Verified 03/03/20 03:55) - Discharge Instructions Discharge Instructions:: You were diagnosed with COVId 19. You received convalescent plasma on 03/04. You received doxycycline from 03/19 to 03/24. You also received steroids. You required oxygen but were weaned off. You should get a repeat chest Xray in 6 weeks since your last one showed bilateral pneumonia. Your ultrasound showed a clot in your basilic vein. You were started on a blood thinner called eliquis. Take this twice daily and follow up with your primary care doctor regarding whether this should be continued. You also had a possible UTI. Take amoxicillin for five more days to complete a ten day course of antibiotics. You appeared to be depressed. You were started on celexa. Please follow up with your primary care doctor regarding additional titration. Take a multivitamin D daily. Activity:: Activity as Tolerated Nourishment:: Regular Diet (NDD1 pureed, nectar thick liquids, extra sauce/g ravy, no straws, small sips by cup), Supplemental Diet (Mighty shake TID with meals) Therapies:: Occupational Therapy, Physical Therapy, Speech Therapy Equipment/Supplies:: Not Applicable IV Therapy:: Not Applicable - Follow up Plan Referrals: Sumit Pierre MD [Primary Care Provider] - Moe Will MD [Active] - Johnny Lofton MD [Active] - Disposition: HOME Quality - Care Measures CORE MEASURES:: N/A
--- NOTE | 2020-03-29 08:23 | EKG ---
Test Reason : Blood Pressure : / mmHG Vent. Rate : 105 BPM Atrial Rate : 105 BPM P-R Int : 144 ms QRS Dur : 084 ms QT Int : 294 ms P-R-T Axes : 064 011 027 degrees QTc Int : 388 ms Sinus tachycardia Nonspecific ST and T wave abnormality Abnormal ECG No previous ECGs available Confirmed by STEFANIA KELLEY MD ([id number]) on 03/29/2020 8:23:13 AM Referred By: SUNNY Confirmed By:STEFANIA KELLEY MD
--- NOTE | 2020-04-02 01:56 | PQF ---
CLINICAL DOCUMENTATION CLARIFICATION FORM: Dear : Scarlett Carlos MD Date / Time: 04/02/2020 Please exercise your independent, professional judgment in responding to the clarification form. Clinical indicators are provided on the bottom of this form for your review Please check appropriate box(es) to clarify if the following diagnosis has been ruled in our ruled out: [ X ] Ruled in sepsis [ X ] Continue to treat [ ] Resolved [ ] Ruled out sepsis [ ] Improving [ ] Cannot rule out diagnosis [ ] Other diagnosis (Please specify if any) [ ] Unable to determine In addition, please specify: Present on Admission (POA): [ ] Yes [ ] No [ ] Unable to determine Physician Signature: Date/Time: For continuity of documentation, please document condition throughout progress notes and discharge summary. Thank You To be completed by CDI/Coding staff for physician review: Present Clinical Indicators - Signs / Symptoms / Labs Results and Location in Medical Record [x] Sepsis H&P on 03/02 [x] Acute hypoxic respiratory failure with sepsis due to COVID -19 Pneumonia Hospitalist PN on 03/02 [x] Sepsis, Status: acute resolved Hospitalist PN on 03/25 [x] Blood culture final no growth in 5 days Discharge summary on 03/26 [x] Discontinue antimicrobial, the incidence of bacterial superinfection in SARS-CoV-2 infected patients is quite low Consult on 03/03 [x] Patient was started on IV Vancomycin and ceftriaxone which was discontinued Discharge summary on 03/26 Present Risk Factors Results and Location in Medical Record [x] Aged person 75 yrs H&P on 03/02 [x] COVID -19 Pneumonia Hospitalist PN on 03/02 [ ] [ ] Present Treatments Results and Location in Medical Record [x] Continue sepsis protocol H&P on 03/02 [x] Vancomycin 750mg IV Medication on 03/02,03/03 [x] Remdesivir 200mg IV Medication from 03/04 to 03/07 [ ] CDS/Warp Picker Signature: AAS Phone #: Date/Time: 04/02/2020 This is a permanent part of the Medical Record [facility]
== END 2020-03-26 18:45 | DRG 870 ==
LOC: ERS 19:05 → T4-A 20:10 → CCU 03-05 04:53 → T4-A 03-17 16:56
PROVIDERS: ADMIT Internal Medicine; ATTEND Emergency Medicine
PROC: XW033E5 Introduction of Remdesivir Anti-infective into Peripheral Vein, Percutaneous Approach, New Technology Group 5 (ICD-10-PCS; 2020-03-03)
PROC: XW13325 Transfusion of Convalescent Plasma (Nonautologous) into Peripheral Vein, Percutaneous Approach, New Technology Group 5 (ICD-10-PCS; 2020-03-04)
PROC: 5A1955Z Respiratory Ventilation, Greater than 96 Consecutive Hours (ICD-10-PCS; principal; 2020-03-05)
PROC: 0BH17EZ Insertion of Endotracheal Airway into Trachea, Via Natural or Artificial Opening (ICD-10-PCS; 2020-03-05)
DX: A41.89 Other specified sepsis (principal); J12.89 Other viral pneumonia; J96.01 Acute respiratory failure with hypoxia; U07.1 COVID-19; G93.41 Metabolic encephalopathy; N39.0 Urinary tract infection, site not specified; I82.612 Acute embolism and thrombosis of superficial veins of left upper extremity; E05.90 Thyrotoxicosis, unspecified without thyrotoxic crisis or storm; I10 Essential (primary) hypertension; E87.6 Hypokalemia; E83.39 Other disorders of phosphorus metabolism; F03.90 Unspecified dementia, unspecified severity, without behavioral disturbance, psychotic disturbance, mood disturbance, and anxiety; E83.42 Hypomagnesemia; E03.9 Hypothyroidism, unspecified; R53.81 Other malaise; R53.1 Weakness; Z51.5 Encounter for palliative care; Z66 Do not resuscitate; Z78.1 Physical restraint status; Z90.710 Acquired absence of both cervix and uterus; B96.20 Unspecified Escherichia coli [E. coli] as the cause of diseases classified elsewhere; D53.9 Nutritional anemia, unspecified
CPT/HCPCS: 36415; 36416; 36430; 71045; 80048; 80076; 81001; 81003; 81015; 82533; 82570; 82607; 82728; 82746; 82805; 83605; 83615; 83735; 83935; 84100; 84145; 84300; 84439; 84443; 85025; 85379; 86140; 86850; 86900; 86901; 87077; 87086; 87186; 93005; 93010; 94002; 94003; 94660; J0696; J1100; J1630; J1650; J2060; J2704; J3010; J3475; J3480; J3490; J7050; J8540; P9017; S0028; U0002